=== PATIENT | male | born 1960 | race African-American/Black ===

== ENCOUNTER 2024-06-06 05:32 | Inpatient (IN) | payer OTHER ==
[2024-06-06] MEDS: MIDAZOLAM 1 MG/ML 5 ML VIAL IV STA (05:37)
--- NOTE | 2024-06-06 05:40 | ED ---
CPR HPI - General Stated Complaint: Cardiac Arrest Time Seen by Provider: 06/06/24 05:38 Source: RN notes reviewed, old records reviewed Mode of arrival: EMS Limitations: altered mental status, physical limitation - History of Present Illness Initial Comments: This is a 64-year-old male who comes in after collapsing patient is found collapsed and brought to the emergency department patient had a witnessed cardiac arrest at [facility] Complaint: found unresponsive, stopped breathing, collapsed during activity, unknown, seizure - Related Data Home Medications Medication Instructions Recorded Confirmed Acetaminophen [Tylenol] 650 mg PO Q4H PRN MDD 2600 mg 06/06/24 06/06/24 Calcium Phos/D3/Magnesium/Zinc 1 tab PO TID PRN 06/06/24 06/06/24 [Czpwfqz-Ebi-Zvrv-Vitamin D3] Chlorpheniramine Maleate 4 mg PO Q4H PRN 06/06/24 06/06/24 [Chlor-Trimeton] Docusate [Colace] 100 mg PO DAILY PRN 06/06/24 06/06/24 Hyoscyamine Sulfate [Levsin] 0.125 mg PO QID PRN 06/06/24 06/06/24 Ibuprofen [Motrin Ib] 600 mg PO Q6H PRN 06/06/24 06/06/24 Loperamide [Imodium] 4 mg PO QID PRN MDD 16MG 06/06/24 06/06/24 Magnesium Hydroxide [Milk of 2,400 mg PO BID PRN 06/06/24 06/06/24 Magnesia] Multivitamins, Thera [Multivitamin 1 tab PO DAILY 06/06/24 06/06/24 (formulary)] Mylanta Regular Strength 30 ml PO Q4H PRN 06/06/24 06/06/24 Thiamine [Vitamin B-1] 100 mg PO DAILY 06/06/24 06/06/24 cloNIDine HCL [Catapres] 0.1 mg PO Q4H PRN 06/06/24 06/06/24 guaiFENesin SYRUP 100MG/5ML 200 mg PO Q4H PRN 06/06/24 06/06/24 [Robitussin] ondansetron HCL [Ondansetron HCl] 8 mg PO Q6H PRN 06/06/24 06/06/24 Allergies Allergy/AdvReac Type Severity Reaction Status Date / Time No Known Allergies Allergy Verified 06/06/24 13:38 Review of Systems ROS Statement: Those systems with pertinent positive or pertinent negative responses have been documented in the HPI. ROS Other: All systems not noted in ROS Statement are negative. General Exam Limitations: altered mental status, physical limitation General appearance: obtunded, in distress Head exam: Present: atraumatic, normocephalic, normal inspection Eye exam: Present: normal appearance, PERRL, EOMI. Absent: scleral icterus, conjunctival injection, periorbital swelling ENT exam: Present: normal exam, mucous membranes moist Neck exam: Present: normal inspection. Absent: tenderness, meningismus, lymphadenopathy Respiratory exam: Present: normal lung sounds bilaterally. Absent: respiratory distress, wheezes, rales, rhonchi, stridor Cardiovascular Exam: Present: regular rate, normal rhythm, normal heart sounds. Absent: systolic murmur, diastolic murmur, rubs, gallop, clicks GI/Abdominal exam: Present: soft, normal bowel sounds. Absent: distended, tenderness, guarding, rebound, rigid Extremities exam: Present: normal inspection, full ROM, normal capillary refill. Absent: tenderness, pedal edema, joint swelling, calf tenderness Back exam: Present: normal inspection Neurological exam: Present: alert, oriented X3, CN II-XII intact Psychiatric exam: Present: normal affect, normal mood Skin exam: Present: warm, dry, intact, normal color. 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 Operator ] Respiratory 19 16 19 Rate Blood Pressure 50/40 61/40 40/32 O2 Sat by Pulse 89 L 91 L 78 L Oximetry Fraction of Inspired Oxygen (FIO2) 06/06/24 06/06/24 06/06/24 06:00 06:05 06:15 Temperature 94.8 F L Pulse Rate 24 L 58 L 131 H Pulse Rate [ 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 Operator ] Respiratory 19 19 19 Rate Blood Pressure 30/20 145/98 129/69 O2 Sat by Pulse 99 100 Oximetry Fraction of Inspired Oxygen (FIO2) 06/06/24 06/06/24 06:25 06:27 Temperature 94.3 F L Pulse Rate 129 H Pulse Rate [ 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 sent in by a medical professional or institution ([facility], [employer], urgent care, hospital, or group home...) When possible be specific @ -no Did you speak to anyone other than the patient for history (EMS, parent, family, police, friend...)? What history was obtained from this source @ -no Did you review nursing and triage notes (agree or disagree)? Why? @ -agree Are old charts reviewed (outside hosp., previous admission, EMS record, old EKG, old radiological studies, urgent care reports/EKG's, group home records)? Report findings @ -yes Differential Diagnosis (chest pain, altered mental status, abdominal pain women, abdominal pain men, vaginal bleeding, weakness, fever, dyspnea, syncope, headache, dizziness, GI bleed, back pain, seizure, CVA, palpatations, mental health, musculoskeletal)? @ -prior EKG interpreted by me (3pts min.). @ -yes X-rays interpreted by me (1pt min.). @ -yes negative for acute disease CT interpreted by me (1pt min.). @ -no U/S interpreted by me (1pt. min.). @ -no What testing was considered but not performed or refused? (CT, X-rays, U/S, labs)? Why? @ -none What meds were considered but not given or refused? Why? @ -none Did you discuss the management of the patient with other professionals (professionals i.e. [facility] Rodriguez, ORE GRADER, lab, RT, psych nurse, psychotherapist social worker, route sales driver, teacher, juvenile corrections officer, casework manager)? Give summary @ -no Was smoking cessation discussed for >3mins.? @ -no Was critical care preformed (if so, how long)? @ -yes31 Were there social determinants of health that impacted care today? How? (Homelessness, low income, unemployed, alcoholism, drug addiction, transportation, low edu. Level, literacy, decrease access to med. care, snf, rehab)? @ -none Was there de-escalation of care discussed even if they declined (Discuss DNR or withdrawal of care, Hospice)? DNR status @ -no What co-morbidities impacted this encounter? (DM, HTN, Smoking, COPD, CAD, Cancer, CVA, ARF, Chemo, Hep., AIDS, mental health diagnosis, sleep apnea, morbid obesity)? @ -none Was patient admitted / discharged? Hospital course, mention meds given and route, prescriptions, significant lab abnormalities, going to OR and other per tinent info. @ - 64 male to ER with acute cardiac arrest. Cardiac arrest was related to ST elevated VT patient admitted for the ICU for continued supportive care and monitoring of any neurologic activity Admitted Undiagnosed new problem with uncertain prognosis? @ -no Drug Therapy requiring intensive monitoring for toxicity (Heparin, Nitro, Insulin, Cardizem)? @ -no Were any procedures done? @ -no Diagnosis/symptom? @ -STEMI with cardiac arrest Acute, or Chronic, or Acute on Chronic? @ -Acute Uncomplicated (without systemic symptoms) or Complicated (systemic symptoms)? @ -Complicated Side effects of treatment? @ -no Exacerbation, Progression, or Severe Exacerbation? @ -exacerbation Poses a threat to life or bodily function? How? (Chest pain, USA, VT, pneumonia, PE, COPD, DKA, ARF, appy, cholecystitis, CVA, Diverticulitis, Homicidal, Suicidal, threat to staff... and all critical care pts) @ -yes - Consultations Consultation #1: Spoke with ICU regarding ICU admission and they agree Consultation #2: Spoke with sound regarding admission and they agree Consultation #3: Spoke with cardiology regarding STEMI, they will see patient in the emergency department Procedures - Central Line Placement Right IJ Consent Obtained: verbal consent Patient Placed on Monitor/Pulse Ox: Yes MD Prep: mask, gown, gloves Central Line Prep: Chlorhexidine scrub, sterile drapes applied Local Anesthesia Used: Lidocaine 1% Ultrasound Used for Placement: Yes Central Line Lumen Inserted: triple Central Line Position: good blood return, all ports aspirated, flushed, capped, sutured in place with 2-0 silk Dressing Applied: Tegaderm Post Procedure X-Ray: tip of catheter in good position Patient Tolerated Procedure: well Complications: none - Intubation Laryngoscope: Pham Size: 4 ET Tube Size: 7.5 ET Tube Uncuffed: No Tube Secured Location: teeth Tube Placement Confirmation: visualized tube passing through cords, equal breath sounds bilaterally Patient Tolerated Procedure: well Intubation Complications: none Medical Decision Making - Medical Decision Making 64 male to ER with acute cardiac arrest. Cardiac arrest was related to ST elevated [place] patient admitted for the ICU for continued supportive care and monitoring of any neurologic activity - Lab Data Result diagrams: 06/11/24 04:36 06/11/24 17:11 Lab Results 06/06/24 06/06/24 06/06/24 Range/Units 05:41 05:41 05:41 WBC 13.5 H (3.8-10.6) k/uL RBC 5.39 (4.30-5.90) m/uL Hgb 17.1 (13.0-17.5) gm/dL Hct 54.5 H (39.0-53.0) % MCV 101.2 H (80.0-100.0) fL MCH 31.8 (25.0-35.0) pg MCHC 31.4 (31.0-37.0) g/dL RDW 12.5 (11.5-15.5) % Plt Count 315 (150-450) k/uL MPV 7.8 Neutrophils % 80 % Lymphocytes % 14 % Monocytes % 4 % Eosinophils % 1 % Basophils % 0 % Neutrophils # 10.9 H (1.3-7.7) k/uL Lymphocytes # 1.8 (1.0-4.8) k/uL Monocytes # 0.6 (0-1.0) k/uL Eosinophils # 0.1 (0-0.7) k/uL Basophils # 0.1 (0-0.2) k/uL Hypochromasia Slight PT 13.1 H (10.0-12.5) sec INR 1.2 H (<1.2) APTT 28.3 (22.0-30.0) sec Sodium 143 (137-145) mmol/L Potassium 4.2 (3.5-5.1) mmol/L Chloride 101 (98-107) mmol/L Carbon Dioxide 14 L (22-30) mmol/L Anion Gap 28 mmol/L BUN 41 H (9-20) mg/dL Creatinine 3.67 H (0.66-1.25) mg/dL Est GFR (CKD-EPI)AfAm 19 (>60 ml/min/1.73 sqM) Est GFR (CKD-EPI)NonAf 16 (>60 ml/min/1.73 sqM) Glucose 163 H (74-99) mg/dL Plasma Lactic Acid Freedom (0.7-2.0) mmol/L Calcium 10.5 H (8.4-10.2) mg/dL Phosphorus 14.4 H* (2.5-4.5) mg/dL Magnesium 3.4 H (1.6-2.3) mg/dL Total Bilirubin 1.2 (0.2-1.3) mg/dL AST 499 H (17-59) U/L ALT 171 H (4-49) U/L Alkaline Phosphatase 61 (38-126) U/L Troponin I (0.000-0.034) ng/mL NT-Pro-B Natriuret Pep 82856 pg/mL Total Protein 8.9 H (6.3-8.2) g/dL Albumin 4.5 (3.5-5.0) g/dL TSH 9.220 H (0.465-4.680) mIU/L 06/06/24 06/06/24 Range/Units 05:41 05:41 WBC (3.8-10.6) k/uL RBC (4.30-5.90) m/uL Hgb (13.0-17.5) gm/dL Hct (39.0-53.0) % MCV (80.0-100.0) fL MCH (25.0-35.0) pg MCHC (31.0-37.0) g/dL RDW (11.5-15.5) % Plt Count (150-450) k/uL MPV Neutrophils % % Lymphocytes % % Monocytes % % Eosinophils % % Basophils % % Neutrophils # (1.3-7.7) k/uL Lymphocytes # (1.0-4.8) k/uL Monocytes # (0-1.0) k/uL Eosinophils # (0-0.7) k/uL Basophils # (0-0.2) k/uL Hypochromasia PT (10.0-12.5) sec INR (<1.2) APTT (22.0-30.0) sec Sodium (137-145) mmol/L Potassium (3.5-5.1) mmol/L Chloride (98-107) mmol/L Carbon Dioxide (22-30) mmol/L Anion Gap mmol/L BUN (9-20) mg/dL Creatinine (0.66-1.25) mg/dL Est GFR (CKD-EPI)AfAm (>60 ml/min/1.73 sqM) Est GFR (CKD-EPI)NonAf (>60 ml/min/1.73 sqM) Glucose (74-99) mg/dL Plasma Lactic Acid Freedom 11.4 H* (0.7-2.0) mmol/L Calcium (8.4-10.2) mg/dL Phosphorus (2.5-4.5) mg/dL Magnesium (1.6-2.3) mg/dL Total Bilirubin (0.2-1.3) mg/dL AST (17-59) U/L ALT (4-49) U/L Alkaline Phosphatase (38-126) U/L Troponin I 0.191 H* (0.000-0.034) ng/mL NT-Pro-B Natriuret Pep pg/mL Total Protein (6.3-8.2) g/dL Albumin (3.5-5.0) g/dL TSH (0.465-4.680) mIU/L - EKG Data -: EKG Interpreted by Me (EKG is ST elevated VT) - Radiology Data Radiology results: report reviewed (Chest x-ray is negative for acute disease), image reviewed Critical Care Time Critical Care Time: Yes Total Critical Care Time: 31 Disposition Clinical Impression: Cardiac arrest, Acute respiratory failure, STEMI (ST elevation myocardial infarction), Sudden cardiac Disposition: ADMITTED IP TO THIS [facility] Condition: Critical Is patient prescribed a controlled substance at d/c from ED?: No Time of Disposition: 07:00
[2024-06-06] MEDS: SODIUM CHLORIDE 0.9% 1,000 ML IV STA ×3 (05:43→06:11)
[2024-06-06] MEDS: SODIUM CHLORIDE 0.9% 500 ML 500 ML IV STA (05:43)
[2024-06-06] MEDS ORDERED: NALOXONE 0.4 MG/ML 1 ML VIAL IV PRN (05:48)
[2024-06-06] MEDS: DEXTROSE 5% IN WATER 100 ML with AMIODARONE 150 MG IV ONE (05:50)
[2024-06-06] MEDS: SODIUM BICARB 8.4% 50 ML SYR (1 MEQ/ML) IV STA ×2 (05:54→08:25)
[2024-06-06] MEDS: ATROPINE SULFATE 0.1 MG/ML 10ML SYRINGE IV STA (05:54)
[2024-06-06] MEDS: ATROPINE SULFATE 0.4 MG/ML 20 ML VIAL IV STA (06:00)
[2024-06-06 06:02] LABS: INR 1.2 (<1.2); Partial Thromboplastin Time 28.3 sec (22.0-30.0); Prothrombin Time 13.1 sec (10.0-12.5)
[2024-06-06] MEDS: NOREPINEPHRINE 4 MG in SODIUM CHLORIDE 0.9% 250 ML IV ONE (06:04)
[2024-06-06 06:09] LABS: African American GFR (CKD) 19 (>60 ml/min/1.73 sqM); Albumin 4.5 g/dL (3.5-5.0); Alkaline Phosphatase 61 U/L (38-126); Blood Urea Nitrogen 41 mg/dL (9-20); Calcium 10.5 mg/dL (8.4-10.2); Carbon Dioxide 14 mmol/L (22-30); Glucose 163 mg/dL (74-99); Non-African American GFR(CKD) 16 (>60 ml/min/1.73 sqM); Total Bilirubin 1.2 mg/dL (0.2-1.3); Total Protein 8.9 g/dL (6.3-8.2)
[2024-06-06 06:10] LABS: Basophils # (A) 0.1 k/uL (0-0.2); Basophils % (A) 0 %; Eosinophils # (A) 0.1 k/uL (0-0.7); Eosinophils % (A) 1 %; HCT 54.5 % (39.0-53.0); HGB 17.1 gm/dL (13.0-17.5); Hypochromasia Slight; Lymphocytes # (A) 1.8 k/uL (1.0-4.8); Lymphocytes % (A) 14 %; MCH 31.8 pg (25.0-35.0); MCHC 31.4 g/dL (31.0-37.0); MCV 101.2 fL (80.0-100.0); Mean Platelet Volume 7.8; Monocytes # (A) 0.6 k/uL (0-1.0); Monocytes % (A) 4 %; Neutrophils # (A) 10.9 k/uL (1.3-7.7); Neutrophils % (A) 80 %; Platelet Count 315 k/uL (150-450); RBC 5.39 m/uL (4.30-5.90); RDW 12.5 % (11.5-15.5); WBC 13.5 k/uL (3.8-10.6)
[2024-06-06] MEDS: HEPARIN SODIUM 1,000 UN/ML (10ML VL) IVP STA (06:12)
[2024-06-06] MEDS: ASPIRIN 300 MG SUPP RECTAL STA (06:16)
[2024-06-06 06:18] LABS: NT-Pro-B-Type Natriuretic Pept 18300 pg/mL
[2024-06-06 06:25] LABS: AST 499 U/L (17-59); Anion Gap 28 mmol/L; Chloride 101 mmol/L (98-107); Magnesium 3.4 mg/dL (1.6-2.3); Potassium 4.2 mmol/L (3.5-5.1); Sodium 143 mmol/L (137-145)
--- NOTE | 2024-06-06 06:25 | XR ---
EXAM: XR Chest, 1 View CLINICAL HISTORY: ITS.REASON XR Reason: ET TECHNIQUE: Frontal view of the chest. COMPARISON: No relevant prior studies available. FINDINGS: Lungs: Unremarkable. No consolidation. Pleural space: Unremarkable. No pneumothorax. Heart: Unremarkable. No cardiomegaly. Mediastinum: Unremarkable. Normal mediastinal contour. Bones/joints: Unremarkable. No acute fracture. Tubes, lines and devices: Right-sided central venous catheter is in place with the tip overlying the expected location of the proximal graft enteric tube is in place with the side-port traversing below the level of the diaphragm. IMPRESSION: No acute findings in the chest.
[2024-06-06 06:29] LABS: ABG Base Excess -16.2 mmol/L; ABG HCO3 14 mmol/L (21-25); ABG Oxygen Saturation 99.3 % (94-97); ABG PCO2 50 mmHg (35-45); ABG TCO2 16 mmol/L (19-24); Allen Test Performed? Yes
[2024-06-06 06:29] LABS: ALT 171 U/L (4-49); Phosphorus 14.4 mg/dL (2.5-4.5)
[2024-06-06] MEDS ORDERED: LIDOCAINE 1% INJ 10MG/ML (20 ML MDV) ONE (06:34)
[2024-06-06] MEDS ORDERED: VERAPAMIL 2.5 MG/ML 2 ML AMP ONE (06:34)
[2024-06-06] MEDS: IV FLUID CONTINUATION 1,000 ML IV ONE (06:39)
[2024-06-06] MEDS ORDERED: HEPARIN SODIUM 1,000 UN/ML (10ML VL) ONE (06:48)
[2024-06-06] MEDS: LIDOCAINE 1% INJ 10MG/ML (20 ML MDV) SQ ONE (06:54)
[2024-06-06] MEDS: IOPAMIDOL-370 100ML BTL INJ ONE (07:00)
[2024-06-06] MEDS: SODIUM CHLORIDE 0.9% 1,000 ML IV ONE (07:17)
[2024-06-06] MEDS ORDERED: RX INFO: IV CONTRAST WAS GIVEN 1 EACH MISC MISCELLANE PRN (07:21)
--- NOTE | 2024-06-06 07:28 | P.CRDCN ---
History of Present Illness Consult date: 06/06/24 History of present illness: HISTORY OF PRESENTING ILLNESS 64-year-old male was been treated for multiple drug abuses in [facility] presented to the [facility] for being found unresponsive. He was intubated in the field. He had ust-iw-[id number] cardiac arrest the details of which are not available for me to review. Unknown downtime. In ER he was noticed to be bradycardic with his ECG showing marked ST elevations in lead aVR and V1 In the ER he was reintubated. His initial labs showed sodium 143, potassium 4.2, bicarb 14, BUN 41 creatinine 3.6, significantly elevated lactate of 11.4, phosphorous 14.4, troponin 0.19, NT proBNP 18,000 His chest x-ray did not show any signs of pulmonary congestion. He has a right IJ central line and NG-tube in place. Because of his presentation of cardiac arrest with ECG changes STEMI was activated. REVIEW OF SYSTEMS 14 point review of system is negative except what is mentioned above in HPI. PHYSICAL EXAMINATION Vital signs reviewed. On propofol and norepinephrine Head: Normocephalic. Eyes: Sclerae nonicteric. Neck: Brisk carotid upstroke Lungs: ET tube in place, on vent support Heart: Regular rate and rhythm, S1-S2, no S3, no murmur or rub. Abdomen: Soft nontender, positive bowel sounds. Extremities: No edema, intact distal pulses. Neuro: Under sedation. ASSESSMENT Anterior STEMI Tzx-ul-oydwkxca cardiac arrest Acute hypoxic respiratory failure requiring vent support JAYASHREE Metabolic encephalopathy Lactic acidosis Polysubstance abuse PLAN Plan for cardiac authorization Further recommendations to follow Jacques Romero MD, FACC, RPVI Thank you for allowing [facility] to participate in this patient's care. Feel free to reach out in case of any followup questions. Past Medical History Past Medical History: Unable to Obtain History of Any Multi-Drug Resistant Organisms: Unobtainable Past Surgical History: Unable to Obtain Past Psychological History: Unable to Obtain Smoking Status: Unknown if ever smoked Past Alcohol Use History: Unable to Obtain Past Drug Use History: Opiates Medications and Allergies Allergies Allergy/AdvReac Type Severity Reaction Status Date / Time Unable to Assess Allergy Verified 06/06/24 05:41 Physical Exam Vitals: Vital Signs Temp Pulse Resp BP Pulse Ox FiO2 06/06/24 06:30 94.8 F L 129 H 19 126/77 100 06/06/24 06:27 100 06/06/24 06:25 94.3 F L 129 H 19 116/71 100 06/06/24 06:15 94.8 F L 131 H 19 129/69 100 06/06/24 06:00 24 L 19 30/20 06/06/24 05:55 145 H 19 40/32 78 L 06/06/24 05:47 79 16 61/40 91 L 06/06/24 05:43 100 06/06/24 05:40 89 19 50/40 89 L 06/06/24 05:35 100 06/06/24 05:34 96.8 F L 119 H 16 61/38 Intake and Output 06/05/24 06/06/24 06/06/24 22:59 06:59 14:59 Intake Total 300 200 Balance 300 200 Intake: IV 300 200 Other: Weight 65.771 kg Results 06/06/24 05:41 06/06/24 05:41 Cardiac Enzymes 06/06/24 06/06/24 Range/Units 05:41 05:41 AST 499 H (17-59) U/L Troponin I 0.191 H* (0.000-0.034) ng/mL Coagulation 06/06/24 Range/Units 05:41 PT 13.1 H (10.0-12.5) sec APTT 28.3 (22.0-30.0) sec CBC 06/06/24 Range/Units 05:41 WBC 13.5 H (3.8-10.6) k/uL RBC 5.39 (4.30-5.90) m/uL Hgb 17.1 (13.0-17.5) gm/dL Hct 54.5 H (39.0-53.0) % Plt Count 315 (150-450) k/uL Comprehensive Metabolic Panel 06/06/24 Range/Units 05:41 Sodium 143 (137-145) mmol/L Potassium 4.2 (3.5-5.1) mmol/L Chloride 101 (98-107) mmol/L Carbon Dioxide 14 L (22-30) mmol/L BUN 41 H (9-20) mg/dL Creatinine 3.67 H (0.66-1.25) mg/dL Glucose 163 H (74-99) mg/dL Calcium 10.5 H (8.4-10.2) mg/dL AST 499 H (17-59) U/L ALT 171 H (4-49) U/L Alkaline Phosphatase 61 (38-126) U/L Total Protein 8.9 H (6.3-8.2) g/dL Albumin 4.5 (3.5-5.0) g/dL Current Medications Generic Name Dose Route Start Last Admin Trade Name Freq PRN Reason Stop Dose Admin Albuterol/Ipratropium 3 ml 06/06/24 08:00 Ipratropium-Albuterol 3 Ml Neb INHALATION RT-QID BEV Sodium Chloride 1,000 mls @ 130 mls/hr 06/06/24 05:38 06/06/24 05:44 Saline 0.9% IV 06/06/24 13:19 130 mls/hr .Q7H42M STA Administration Midazolam HCl 50 mg/ Sodium 50 mls @ 1 mls/hr 06/06/24 06:30 Chloride IV .Q24H BEV Protocol 1 MG/HR Norepinephrine Bitartrate 32 250 mls @ 0.925 mls/hr 06/06/24 07:00 mg/ Sodium Chloride IV .Q24H BEV Protocol 0.03 MCG/KG/MIN Sodium Chloride 1,000 mls @ 150 mls/hr 06/06/24 07:30 Saline 0.9% IV 06/06/24 13:29 .Q6H40M [facility] Miscellaneous Information 1 each 06/06/24 07:21 Rx Info: Iv Contrast Was Given 1 Each Misc MISCELLANE 06/08/24 07:21 DAILY PRN Per Protocol Naloxone HCl 0.2 mg 06/06/24 05:48 Naloxone 0.4 Mg/Ml 1 Ml Vial IV Q2M PRN Opioid Reversal Pantoprazole Sodium 40 mg 06/06/24 09:00 Pantoprazole 40 Mg/10 Ml Vial IV DAILY BEV Intake and Output 06/05/24 06/06/24 06/06/24 22:59 06:59 14:59 Intake Total 300 200 Balance 300 200 Intake: IV 300 200 Other: Weight 65.771 kg 06/06/24 05:41 06/06/24 05:41
--- NOTE | 2024-06-06 07:31 | P.CARDCATH ---
Date of Procedure: 06/06/24 Description of Procedure: DIAGNOSTIC CORONARY ANGIOGRAPHY and LEFT HEART CATH REPORT PROCEDURES PERFORMED: Left heart catheterization Selective coronary angiography Moderate conscious sedation 14 mins Right common femoral access Right common femoral arteriogram Angioseal Closure INDICATION: STEMI with ST elevations in lead aVR and V1 Vop-zz-wgtjiggy cardiac arrest CONSENT: I have discussed the risks, benefits and alternative therapies for the above-mentioned procedure, sedation/analgesia and necessary blood product administration (if indicated, as they pertain to this patient). The patient has indicated understanding and acceptance of the risks and procedures discussed. Conscious Sedation: Patient's ECG, heart rate, blood pressure, pulse oximetry was monitored throughout the duration of procedure under the direct supervision. Patient was on propofol which was used for moderate conscious sedation. Total duration of 14 minutes. PROCEDURE:After the risks, benefits and alternatives of the above mentioned procedure explained in detail with the patient, informed consent was obtained. Patient was taken to the catheterization lab and prepped and draped in usual sterile fashion. Ultrasound was used to identify the right common femoral artery. 1% lidocaine was infiltrated over the right common femoral artery. Using ultrasound arterial access was obtained using micropuncture needle. A 6-Bengali sheath was placed in the right coomon femoral artery using modified Seldinger technique. J tipped wire was advanced under fluoroscopic guidance. Over the wire JL4 diagnostic catheter was advanced. Wire was removed, catheter was flushed and manipulated under fluoroscopy to selectively engaged the left coronary ostium. Left coronary angioplasty was performed in different angiographic projections. This catheter was exchanged for a JR4 diagnostic catheter over the wire. The catheter was flushed and manipulated to cross the aortic valve. LV pressures were obtained. Pullback was performed across aortic valve and catheter was manipulated to selectively engage the right coronary ostium under fluoroscopic guidance. Right coronary angiography was performed in different angiographic projections. Catheter was removed over the wire. Femoral sheath was flushed. Angioseal closure device was used to close the arteriotomy site. Angio-Seal was not deployed probably because of thin body habitus. 20 minutes of manual pressure was held on the right femoral arteriotomy site. Appropriate patent hemostasis was achieved. The patient tolerated the procedure well. Patient was transported back to the post catheterization holding area in stable condition. Angiographic images were reviewed in detail. HEMODYNAMICS: Aortic Pressure: 85/60 mmHg. LV pressure: 90/65 mmHg. LVEDP 3 mmHg. SELECTIVE CORONARY ARTERIOGRAPHY: LEFT MAIN: The left main is a large caliber vessel which bifurcates into the LAD and circumflex. Left main appears angiographically patent. LEFT ANTERIOR DESCENDING CORONARY ARTERY: LAD is a large caliber vessel which wraps around to the apex. It appears angiographically patent. It gives rise to a large diagonal 1 branch and a small diagonal 2 branch which are angiographically patent. LEFT CIRCUMFLEX CORONARY ARTERY: It is nondominant vessel. Left circumflex is a moderate caliber vessel. It appears angiographically patent. RIGHT CORONARY ARTERY: Dominant vessel. The right coronary artery is a large caliber vessel which gives PDA and PLV branch. It appears angiographically patent. IMPRESSION: Angiographically patent coronary arteries as described above. Tortuous coronary arteries Low left sided filling pressures PLAN: 150 cc fluids for 6 hours Admit to ICU for further management Because of ST elevations in aVR and V1 and low LVEDP, there is suspicion of possible PE Will obtain a ventilation/perfusion scan of the lungs to rule out any pulmonary embolism. Cannot perform CT angio because of exposure of 40 cc contrast during cardiac catheterization and already low GFR. Performing Physician Jacques Romero MD FACC, RPVI Thank you for allowing [facility] to participate in this patient's care. Feel free to reach out in case of any followup questions.
[2024-06-06 07:34] LABS: ABG PH 7.06 (7.35-7.45)
[2024-06-06 07:35] LABS: ABG PO2 >420 mmHg (83-108)
[2024-06-06 07:55] LABS: Glucose,Whole Blood 61 mg/dL (70-110)
[2024-06-06] MEDS: DEXTROSE 50% SYRINGE 50 ML IVP ONE (07:57)
[2024-06-06 08:11] LABS: Glucose,Whole Blood 94 mg/dL (70-110)
[2024-06-06] MEDS: SODIUM CHLORIDE 0.9% 1,000 ML IV SCH (08:14)
[2024-06-06] MEDS: MIDAZOLAM HCL 50 MG in SODIUM CHLORIDE 0.9% 40 ML IV SCH (08:26)
[2024-06-06] MEDS: IPRATROPIUM-ALBUTEROL 3 ML NEB INHALATION STA (08:28)
[2024-06-06] MEDS: IPRATROPIUM-ALBUTEROL 3 ML NEB INHALATION SCH (08:37)
--- NOTE | 2024-06-06 08:49 | P.HPIM ---
History of Present Illness H&P Date: 06/06/24 Patient is a 64-year-old male with history of polysubstance abuse including heroin, cocaine, alcohol presenting from [place] for witnessed cardiac arrest. Unknown downtime. Per report, patient possibly had seizure-like activity after having a cardiac arrest. He had multiple rounds of CPR, was intubated in the field. After getting to the hospital, he was found to be bradycardic, given atropine. EKG concerning for anterior STEMI with ST elevations in aVR and V1. Cardiology was consulted and patient taken directly to [facility]. Coronary arteries are patent. Patient now in the ICU. Initially patient blood pressure was 61/38, mechanically ventilated, respiratory 16, pulse 119, temperature 96.8. WBC 13.5, pH 7. 06, pCO2 50, sodium 143, potassium 4.2, bicarb 14, anion gap 28, creatinine 3.67, lactate 11.4, glucose 163, calcium 10.5, alk phos 14.4, AST 499, ALT 171, troponin 0.191, proBNP 18,000, TSH 9.22. Chest x-ray independently interpreted, did not show any opacities, ET tube, central line, NG tube in place. ICU, nephrology, neurology consulted. Pertinent positives and negatives as discussed in HPI, a complete review of systems was performed and all other systems are negative. Patient seen and examined at bedside. Vital signs reviewed General: Intubated and sedated Derm: warm, dry Head: atraumatic, normocephalic, symmetric Eyes: anicteric sclera, pupils equal round reactive to light, pinpoint pupils ENT: Nose and ears atraumatic Neck: No thyromegaly, supple Mouth: no lip lesion, mucus membranes moist Cardiovascular: S1S2 reg, tachycardic, no murmur, no edema Lungs: Bilateral rhonchi, mechanically ventilated Abdominal: soft, nondistended Ext: no gross muscle atrophy, no contractures Neuro: Sedated Psych: Unable to assess Assessment/Plan: Active: [id number] cardiac arrest Acute anterior STEMI Unspecified shock, cardiogenic versus obstructive Possible acute pulmonary embolism Acute metabolic encephalopathy History of polysubstance abuse Seizure? Leukocytosis, reactive High anion gap metabolic acidosis Uremia Anuric, acute kidney injury Lactic acidosis Euthyroid sick syndrome -Discussed with cardiology, possible PE, consider anticoagulation 4 hours after cardiac cath, consider getting VQ scan if patient is stable -Echo pending -Continue normal saline at 150 cc an hour post cath -Given another 2 g of bicarb -Nephrology also consulted -Neurology consulted -EEG ordered -Repeat lactate-Labs later this afternoon -Continue Levophed -ICU consulted The patient is admitted with an anticipated greater than 2 midnight stay as inpatient status for evaluation of cardiac arrest. Surrogate decision-maker: Mother CODE STATUS: Full code Anticipated discharge date: Pending clinical course Anticipated discharge place: Pending clinical course A total of 65 minutes was spent on the care of this complex patient more than 50% of the time was spent in counseling and care coordination. Past Medical History Past Medical History: Unable to Obtain History of Any Multi-Drug Resistant Organisms: Unobtainable Past Surgical History: Unable to Obtain Past Psychological History: Unable to Obtain Smoking Status: Unknown if ever smoked Past Alcohol Use History: Unable to Obtain Past Drug Use History: Opiates Medications and Allergies Allergies Allergy/AdvReac Type Severity Reaction Status Date / Time Unable to Assess Allergy Verified 06/06/24 05:41 Physical Exam Vitals: Vital Signs Temp Pulse Pulse Resp BP Pulse Ox FiO2 06/06/24 08:38 50 06/06/24 08:37 104 H 06/06/24 08:27 50 06/06/24 06:30 94.8 F L 129 H 19 126/77 100 60 06/06/24 06:27 100 06/06/24 06:25 94.3 F L 129 H 19 116/71 100 06/06/24 06:15 94.8 F L 131 H 19 129/69 100 06/06/24 06:05 58 L 19 145/98 99 06/06/24 06:00 24 L 19 30/20 06/06/24 05:55 145 H 19 40/32 78 L 06/06/24 05:47 79 16 61/40 91 L 06/06/24 05:40 89 19 50/40 89 L 06/06/24 05:35 100 06/06/24 05:34 96.8 F L 119 H 16 61/38 06/06/24 05:32 79 Intake and Output 06/05/24 06/06/24 06/06/24 22:59 06:59 14:59 Intake Total 300 200 Balance 300 200 Intake: IV 300 200 Other: Weight 65.771 kg Results CBC & Chem 7: 06/06/24 05:41 06/06/24 05:41 Labs: Abnormal Lab Results - Last 24 Hours (Table) 06/06/24 06/06/24 06/06/24 Range/Units 05:41 05:41 05:41 WBC 13.5 H (3.8-10.6) k/uL Hct 54.5 H (39.0-53.0) % MCV 101.2 H (80.0-100.0) fL Neutrophils # 10.9 H (1.3-7.7) k/uL PT 13.1 H (10.0-12.5) sec INR 1.2 H (<1.2) ABG pH (7.35-7.45) ABG pCO2 (35-45) mmHg ABG pO2 (83-108) mmHg ABG HCO3 (21-25) mmol/L ABG Total CO2 (19-24) mmol/L ABG O2 Saturation (94-97) % Carbon Dioxide 14 L (22-30) mmol/L BUN 41 H (9-20) mg/dL Creatinine 3.67 H (0.66-1.25) mg/dL Glucose 163 H (74-99) mg/dL POC Glucose (mg/dL) (70-110) mg/dL Plasma Lactic Acid Freedom (0.7-2.0) mmol/L Calcium 10.5 H (8.4-10.2) mg/dL Phosphorus 14.4 H* (2.5-4.5) mg/dL Magnesium 3.4 H (1.6-2.3) mg/dL AST 499 H (17-59) U/L ALT 171 H (4-49) U/L Troponin I (0.000-0.034) ng/mL Total Protein 8.9 H (6.3-8.2) g/dL TSH 9.220 H (0.465-4.680) mIU/L 06/06/24 06/06/24 06/06/24 Range/Units 05:41 05:41 06:25 WBC (3.8-10.6) k/uL Hct (39.0-53.0) % MCV (80.0-100.0) fL Neutrophils # (1.3-7.7) k/uL PT (10.0-12.5) sec INR (<1.2) ABG pH 7.06 L* (7.35-7.45) ABG pCO2 50 H (35-45) mmHg ABG pO2 >420 H (83-108) mmHg ABG HCO3 14 L (21-25) mmol/L ABG Total CO2 16 L (19-24) mmol/L ABG O2 Saturation 99.3 H (94-97) % Carbon Dioxide (22-30) mmol/L BUN (9-20) mg/dL Creatinine (0.66-1.25) mg/dL Glucose (74-99) mg/dL POC Glucose (mg/dL) (70-110) mg/dL Plasma Lactic Acid Freedom 11.4 H* (0.7-2.0) mmol/L Calcium (8.4-10.2) mg/dL Phosphorus (2.5-4.5) mg/dL Magnesium (1.6-2.3) mg/dL AST (17-59) U/L ALT (4-49) U/L Troponin I 0.191 H* (0.000-0.034) ng/mL Total Protein (6.3-8.2) g/dL TSH (0.465-4.680) mIU/L 06/06/24 Range/Units 07:53 WBC (3.8-10.6) k/uL Hct (39.0-53.0) % MCV (80.0-100.0) fL Neutrophils # (1.3-7.7) k/uL PT (10.0-12.5) sec INR (<1.2) ABG pH (7.35-7.45) ABG pCO2 (35-45) mmHg ABG pO2 (83-108) mmHg ABG HCO3 (21-25) mmol/L ABG Total CO2 (19-24) mmol/L ABG O2 Saturation (94-97) % Carbon Dioxide (22-30) mmol/L BUN (9-20) mg/dL Creatinine (0.66-1.25) mg/dL Glucose (74-99) mg/dL POC Glucose (mg/dL) 61 L (70-110) mg/dL Plasma Lactic Acid Freedom (0.7-2.0) mmol/L Calcium (8.4-10.2) mg/dL Phosphorus (2.5-4.5) mg/dL Magnesium (1.6-2.3) mg/dL AST (17-59) U/L ALT (4-49) U/L Troponin I (0.000-0.034) ng/mL Total Protein (6.3-8.2) g/dL TSH (0.465-4.680) mIU/L
[2024-06-06] MEDS: NOREPINEPHRINE 4 MG in SODIUM CHLORIDE 0.9% 250 ML IV SCH (09:04)
--- NOTE | 2024-06-06 09:13 | XR ---
EXAMINATION TYPE: XR chest 1V portable DATE OF EXAM: 06/06/2024 8:47 AM CLINICAL INDICATION: Male, 64 years old with history of line placement/et tube placement; [facility] COMPARISON: Chest radiographs from 06/06/2024 TECHNIQUE: XR chest 1V portable Frontal view of the chest. FINDINGS: Lungs/Pleura: There is no evidence of pleural effusion, focal consolidation, or pneumothorax. Pulmonary vascularity: Unremarkable. Heart/mediastinum: Cardiomediastinal silhouette is unremarkable. Musculoskeletal: No acute osseous pathology. Other findings: None Lines/Tubes: Endotracheal tube with distal tip 5.0 cm above the tahir. Nasogastric tube with its distal tip and side-port projecting under the diaphragm. IMPRESSION: 1. New right pneumothorax. 2. Endotracheal tube and nasogastric tubes in appropriate position. Findings communicated to Dr. Love doctor for MD Demetria Cruz on 06/06/2024 9:[address] Remy Robb.
--- NOTE | 2024-06-06 10:22 | XR ---
EXAMINATION TYPE: XR chest 1V portable DATE OF EXAM: 06/06/2024 10:16 AM CLINICAL INDICATION: Male, 64 years old with history of eval. pneumothorax; [facility] COMPARISON: Same nava TECHNIQUE: XR chest 1V portable Frontal view of the chest. FINDINGS: EXAMINATION TYPE: XR chest 1V portable DATE OF EXAM: 06/06/2024 10:16 AM CLINICAL INDICATION: Male, 64 years old with history of eval. pneumothorax; [facility] COMPARISON: Chest radiographs from same dayr TECHNIQUE: XR chest 1V portable Frontal view of the chest. FINDINGS: Lungs/Pleura: There is no evidence of pleural effusion, focal consolidation, or pneumothorax. Pulmonary vascularity: Unremarkable. Heart/mediastinum: Cardiomediastinal silhouette is unremarkable. Musculoskeletal: No acute osseous pathology. Other findings: None Lines/Tubes: Endotracheal tube with distal tip 5.3a cm above the tahir. Nasogastric tube with its distal tip and side-port projecting under the diaphragm. Right internal jugular central venous catheter with distal tip at the cavoatrial junction. IMPRESSION: 1. Similar right pneumothorax. 2. Endotracheal tube and nasogastric tubes in appropriate position.
[2024-06-06 10:32] LABS: Appearance,Urine Turbid (Clear); Bacteria,Urine Few /hpf; Bilirubin,Urine Negative (Negative); Blood,Urine Large (Negative); Color,Urine Light Red; Glucose,Urine (UA) Negative (Negative); Ketones,Urine Negative (Negative); Leukocyte Esterase,Urine Negative (Negative); Mucus,Urine Few /hpf; Nitrite,Urine Negative (Negative); Protein,Urine 2+ (Negative); RBC,Urine 28 /hpf (0-5); Specific Gravity,Urine 1.026 (1.001-1.035); Squamous Epithelial Cell,Urine 8 /hpf (0-4); Urobilinogen,Urine <2.0 mg/dL (<2.0); WBC,Urine 71 /hpf (0-5)
--- NOTE | 2024-06-06 10:37 | XR ---
EXAMINATION TYPE: XR chest 1V portable DATE OF EXAM: 06/06/2024 10:30 AM CLINICAL INDICATION: Male, 64 years old with history of POST CHEST TUBE INSERTION; [facility] COMPARISON: Same day TECHNIQUE: XR chest 1V portable Frontal view of the chest. FINDINGS: Lungs/Pleura: Trace right pneumothorax. There is no evidence of pleural effusion, focal consolidation , or left pneumothorax. Pulmonary vascularity: Unremarkable. Heart/mediastinum: Cardiomediastinal silhouette is unremarkable. Musculoskeletal: No acute osseous pathology. Other findings: None Lines/Tubes: Endotracheal tube with distal tip 5.4cm above the tahir. Nasogastric tube with its distal tip and side-port projecting under the diaphragm. Right thoracotomy tube is present without evidence of pneumothorax. Right internal jugular central venous catheter with distal tip at the cavoatrial junction. IMPRESSION: Interval thoracotomy tube placement with reduction in right pneumothorax. Trace pneumothorax visualiz ed
[2024-06-06] MEDS: DEXTROSE 5% IN WATER 1,000 ML with SODIUM BICARB (1 MEQ/ML) 150 ML IV SCH (10:52)
[2024-06-06] MEDS: NOREPINEPHRINE 32 MG in SODIUM CHLORIDE 0.9% 218 ML IV SCH (10:53)
[2024-06-06 11:57] LABS: ABG Base Excess -0.9 mmol/L; ABG HCO3 24 mmol/L (21-25); ABG Oxygen Saturation 96.9 % (94-97); ABG PCO2 39 mmHg (35-45); ABG PH 7.39 (7.35-7.45); ABG PO2 95 mmHg (83-108); ABG TCO2 25 mmol/L (19-24); Allen Test Performed? Yes
[2024-06-06 12:07] LABS: Glucose,Whole Blood 107 mg/dL (70-110)
--- NOTE | 2024-06-06 12:09 | P.NPCON ---
History of Present Illness - Reason for Consult acute renal failure - History of Present Illness Patient is a 64-year-old male with history of polysubstance abuse who was leaving [facility], ? AMA and he apparently fell and developed mental status changes. It appears that patient became bradycardic and did have couple of rounds of CPR. EKG was suggestive of ST elevation WI and patient was taken to the [facility] this morning. Cardiac cath showed patent coronary arteries. Patient remains on the vent. He has not had any significant urine output. Currently with indwelling Griggs catheter. Urine output seems to be improving. Blood pressure was initially low with systolic in the 60s and 40s. Status post multiple fluid boluses. Blood pressure is now elevated. Patient did not require pressors. Lactic acid was 11.4 and it is down to 7.7 now. Serum creatinine was 3.67. No previous labs available for comparison. Review of Systems As per HPI Past Medical History Past Medical History: Unable to Obtain History of Any Multi-Drug Resistant Organisms: Unobtainable Past Surgical History: Unable to Obtain Past Psychological History: Unable to Obtain Smoking Status: Unknown if ever smoked Past Alcohol Use History: Unable to Obtain Past Drug Use History: Opiates Medications and Allergies Allergies Allergy/AdvReac Type Severity Reaction Status Date / Time Unable to Assess Allergy Verified 06/06/24 05:41 Physical Exam Vitals: Vital Signs Temp Pulse Pulse Resp BP Pulse Ox FiO2 06/06/24 11:49 104 H 06/06/24 11:30 105 H 25 H 100 06/06/24 11:00 104 H 29 H 168/103 100 50 06/06/24 10:30 101 H 38 H 158/109 99 06/06/24 10:00 106 H 36 H 142/93 96 50 06/06/24 09:30 108 H 36 H 139/93 96 06/06/24 09:00 106 H 36 H 139/85 92 L 50 06/06/24 08:53 106 H 06/06/24 08:38 50 06/06/24 08:37 104 H 06/06/24 08:30 101 H 39 H 124/82 94 L 06/06/24 08:27 50 06/06/24 08:00 95.5 F L 105 H 39 H 127/84 99 50 06/06/24 06:30 94.8 F L 129 H 19 126/77 100 60 06/06/24 06:27 100 06/06/24 06:25 94.3 F L 129 H 19 116/71 100 06/06/24 06:15 94.8 F L 131 H 19 129/69 100 06/06/24 06:05 58 L 19 145/98 99 06/06/24 06:00 24 L 19 30/20 06/06/24 05:55 145 H 19 40/32 78 L 06/06/24 05:47 79 16 61/40 91 L 06/06/24 05:40 89 19 50/40 89 L 06/06/24 05:35 100 06/06/24 05:34 96.8 F L 119 H 16 61/38 06/06/24 05:32 79 Intake and Output 06/05/24 06/06/24 06/06/24 22:59 06:59 14:59 Intake Total 300 880.724 Output Total 25 Balance 300 855.724 Intake: IV 300 775 Dextrose 5% in Water 1, 125 000 ml @ 125 mls/hr IV . Q9H12M [facility] with Sodium Bicarb (1 Meq/ml) 150 ml Rx#:[id number] Sodium Chloride 0.9% 1, 450 000 ml @ 150 mls/hr IV . Q6H40M [facility] Rx#:[id number] Intake, IV Titration 105.724 Amount Midazolam HCl 50 mg In 25.066 Sodium Chloride 0.9% 40 ml @ 1 MG/HR 1 mls/hr IV .Q24H [facility] Rx#:[id number] Norepinephrine 4 mg In 27.481 Sodium Chloride 0.9% 250 ml @ 0.03 MCG/KG/MIN 7. 518 mls/hr IV .Q24H ONE Rx#:[id number] propofoL 1,000 mg In 6.413 Empty Bag 1 bag @ 60 MCG/ KG/MIN 23.678 mls/hr IV . Q4H14M [facility] Rx#:[id number] propofoL 1,000 mg In 46.764 Empty Bag 1 bag @ Titrate IV .Q0M ONE Rx#: [id number] Output: Urine 25 Other: Weight 65.771 kg 62.8 kg ABP, PAP, CO, CI - Last 8 Hours Arterial Blood Pressure 177/94 Patient is sedated and on the vent. Examination of the heart S1 and S2 Examination of the lungs bilateral breath sounds are heard Abdomen is soft nontender Examination of lower extremities shows chronic skin changes no significant edema noted. [employer] exam cannot be performed Results - Lab Results Most recent lab results ABG pH 7.06 (7.35-7.45) L* 06/06/24 06:25 ABG pCO2 50 mmHg (35-45) H 06/06/24 06:25 ABG pO2 >420 mmHg (83-108) H 06/06/24 06:25 ABG HCO3 14 mmol/L (21-25) L 06/06/24 06:25 ABG O2 Saturation 99.3 % (94-97) H 06/06/24 06:25 Calcium 10.5 mg/dL (8.4-10.2) H 06/06/24 05:41 Phosphorus 14.4 mg/dL (2.5-4.5) H* 06/06/24 05:41 Magnesium 3.4 mg/dL (1.6-2.3) H 06/06/24 05:41 06/06/24 05:41 06/06/24 05:41 Assessment and Plan Assessment: 1. Acute kidney injury ATN, oliguric. Etiology is hypotension/cardiac arrest. 2. Microscopic hematuria noted on UA,? Traumatic. Consider underlying GN if it remains persistent. Patient has underlying history of hepatitis 3. History of polysubstance abuse including cocaine 4. Rule out cocaine associated acute WI 5. Status postcardiac arrest 6. Anion gap metabolic acidosis secondary to lactic acidosis and acute kidney injury 7. Hyperphosphatemia associated with acute kidney injury rule out rhabdomyolysis Plan: Check CK Repeat U/A in 1-2 days Check hepatitis profile Add IV bicarb Check drug screen. Repeat labs in a.m. Add beta-blockers if blood pressure remains elevated. Thank you for the consultation. We will continue to follow the patient with you during his hospitalization.
--- NOTE | 2024-06-06 12:22 | P.CNPUL ---
History of Present Illness Consult date: 06/06/24 Chief complaint: Cardiac arrest History of present illness: Patient is a 64-year-old male with history of polysubstance abuse including heroin, cocaine, alcohol presenting from [place] for witnessed cardiac arrest. Unknown downtime. Per report, patient possibly had seizure-like activity after having a cardiac arrest. He had multiple rounds of CPR, was intubated in the field. After getting to the hospital, he was found to be bradycardic, given atropine. EKG concerning for anterior STEMI with ST elevations in aVR and V1. Cardiology was consulted and patient taken directly to [facility]. Coronary arteries are patent. Patient now in the ICU. Initially patient blood pressure was 61/38, mechanically ventilated, respiratory 16, pulse 119, temperature 96.8. WBC 13.5, pH 7. 06, pCO2 50, sodium 143, potassium 4.2, bicarb 14, anion gap 28, creatinine 3.67, lactate 11.4, glucose 163, calcium 10.5, alk phos 14.4, AST 499, ALT 171, troponin 0.191, proBNP 18,000, TSH 9.22. Initial chest x-ray ET tube, central line, NG tube in place, no other abnormalities. Repeat chest x-ray with right-sided pneumothorax, confirmed on repeat. Patient is mechanically ventilated rate 18, tidal volume 400, oxygen 50%, PEEP 5.0. ABG pH 7.06, pCO2 50, pO2 450. IV line Levophed 0.03 mcg/kg/min, propofol 60 mcg/kg/min, Versed saline 1 mg/h, normal saline 150 mL/h. Patient also given bicarb. Given pneumothorax the decision was made for chest tube to be inserted. Also, A-line was established. Review of Systems ROS unobtainable: due to endotracheal tube, due to mental status Past Medical History Past Medical History: Unable to Obtain History of Any Multi-Drug Resistant Organisms: Unobtainable Past Surgical History: Unable to Obtain Past Psychological History: Unable to Obtain Smoking Status: Unknown if ever smoked Past Alcohol Use History: Unable to Obtain Past Drug Use History: Opiates Medications and Allergies Allergies Allergy/AdvReac Type Severity Reaction Status Date / Time Unable to Assess Allergy Verified 06/06/24 05:41 Physical Exam Vitals: Vital Signs Temp Pulse Pulse Resp BP Pulse Ox FiO2 06/06/24 10:30 101 H 38 H 158/109 99 06/06/24 10:00 106 H 36 H 142/93 96 50 06/06/24 09:30 108 H 36 H 139/93 96 06/06/24 09:00 106 H 36 H 139/85 92 L 50 06/06/24 08:53 106 H 06/06/24 08:38 50 06/06/24 08:37 104 H 06/06/24 08:30 101 H 39 H 124/82 94 L 06/06/24 08:27 50 06/06/24 08:00 95.5 F L 105 H 39 H 127/84 99 50 06/06/24 06:30 94.8 F L 129 H 19 126/77 100 60 06/06/24 06:27 100 06/06/24 06:25 94.3 F L 129 H 19 116/71 100 06/06/24 06:15 94.8 F L 131 H 19 129/69 100 06/06/24 06:05 58 L 19 145/98 99 06/06/24 06:00 24 L 19 30/20 06/06/24 05:55 145 H 19 40/32 78 L 06/06/24 05:47 79 16 61/40 91 L 06/06/24 05:40 89 19 50/40 89 L 06/06/24 05:35 100 06/06/24 05:34 96.8 F L 119 H 16 61/38 06/06/24 05:32 79 Intake and Output 06/05/24 06/06/24 06/06/24 22:59 06:59 14:59 Intake Total 300 880.724 Output Total 25 Balance 300 855.724 Intake: IV 300 775 Dextrose 5% in Water 1, 125 000 ml @ 125 mls/hr IV . Q9H12M [facility] with Sodium Bicarb (1 Meq/ml) 150 ml Rx#:[id number] Sodium Chloride 0.9% 1, 450 000 ml @ 150 mls/hr IV . Q6H40M [facility] Rx#:[id number] Intake, IV Titration 105.724 Amount Midazolam HCl 50 mg In 25.066 Sodium Chloride 0.9% 40 ml @ 1 MG/HR 1 mls/hr IV .Q24H [facility] Rx#:[id number] Norepinephrine 4 mg In 27.481 Sodium Chloride 0.9% 250 ml @ 0.03 MCG/KG/MIN 7. 518 mls/hr IV .Q24H ONE Rx#:[id number] propofoL 1,000 mg In 6.413 Empty Bag 1 bag @ 60 MCG/ KG/MIN 23.678 mls/hr IV . Q4H14M [facility] Rx#:[id number] propofoL 1,000 mg In 46.764 Empty Bag 1 bag @ Titrate IV .Q0M ONE Rx#: [id number] Output: Urine 25 Other: Weight 65.771 kg 62.8 kg GENERAL: The patient is sedated and intubated. On mechanical ventilation, limited exam and unable to fully assess. HEENT: Constricted pinpoint pupils nonreactive to light. . No conjunctival pallor. Normocephalic, atraumatic. No thyromegaly. CARDIOVASCULAR: S1 and S2 present. No murmurs, rubs, or gallops. PULMONARY: Chest is clear to auscultation, no wheezing or crackles. ABDOMEN: Soft, nondistended, normoactive bowel sounds. No palpable organomegaly. MUSCULOSKELETAL: No joint swelling or deformity. EXTREMITIES: No cyanosis, clubbing, or pedal edema. NEUROLOGICAL: Unable to assess. SKIN: Dermatitis on lower extremities. Results - Laboratory Findings CBC and BMP: 06/06/24 05:41 06/06/24 05:41 ABG ABG pH 7.06 (7.35-7.45) L* 06/06/24 06:25 ABG pCO2 50 mmHg (35-45) H 06/06/24 06:25 ABG pO2 >420 mmHg (83-108) H 06/06/24 06:25 ABG O2 Saturation 99.3 % (94-97) H 06/06/24 06:25 PT/INR, D-dimer PT 13.1 sec (10.0-12.5) H 06/06/24 05:41 INR 1.2 (<1.2) H 06/06/24 05:41 Abnormal lab findings: Abnormal Labs 06/06/24 06/06/24 06/06/24 05:41 05:41 05:41 WBC 13.5 H Hct 54.5 H MCV 101.2 H Neutrophils # 10.9 H PT 13.1 H INR 1.2 H ABG pH ABG pCO2 ABG pO2 ABG HCO3 ABG Total CO2 ABG O2 Saturation Carbon Dioxide 14 L BUN 41 H Creatinine 3.67 H Glucose 163 H POC Glucose (mg/dL) Plasma Lactic Acid Freedom Calcium 10.5 H Phosphorus 14.4 H* Magnesium 3.4 H AST 499 H ALT 171 H Troponin I Total Protein 8.9 H TSH 9.220 H Urine Protein Urine Blood Urine RBC Urine WBC Ur Squamous Epith Cells Urine Bacteria Urine Mucus 06/06/24 06/06/24 06/06/24 05:41 05:41 06:25 WBC Hct MCV Neutrophils # PT INR ABG pH 7.06 L* ABG pCO2 50 H ABG pO2 >420 H ABG HCO3 14 L ABG Total CO2 16 L ABG O2 Saturation 99.3 H Carbon Dioxide BUN Creatinine Glucose POC Glucose (mg/dL) Plasma Lactic Acid Freedom 11.4 H* Calcium Phosphorus Magnesium AST ALT Troponin I 0.191 H* Total Protein TSH Urine Protein Urine Blood Urine RBC Urine WBC Ur Squamous Epith Cells Urine Bacteria Urine Mucus 06/06/24 06/06/24 06/06/24 07:53 09:05 10:08 WBC Hct MCV Neutrophils # PT INR ABG pH ABG pCO2 ABG pO2 ABG HCO3 ABG Total CO2 ABG O2 Saturation Carbon Dioxide BUN Creatinine Glucose POC Glucose (mg/dL) 61 L Plasma Lactic Acid Freedom 7.7 H* Calcium Phosphorus Magnesium AST ALT Troponin I Total Protein TSH Urine Protein 2+ H Urine Blood Large H Urine RBC 28 H Urine WBC 71 H Ur Squamous Epith Cells 8 H Urine Bacteria Few H Urine Mucus Few H Assessment and Plan Assessment: Cardiac arrest from unknown etiology, unknown downtime Unspecified shock, cardiogenic versus obstructive Elevated troponin High anion gap metabolic acidosis Acute metabolic encephalopathy History of polysubstance abuse Uremia Anuric, acute kidney injury Lactic acidosis Leukocytosis, reactive Plan: Pneumothorax noted on CXR, chest tube was placed Continue mechanical ventilation, no change to settings at this time Low suspicion for PE, no plan for heparin infusion at this time CT brain pending Echo pending EEG ordered Lactic acidosis improving, will follow Monitor renal function Monitor electrolytes Continue normal saline at 150 cc/hr Continue Levophed and Propofol ICU will continue to monitor Prognosis is guarded Time with Patient: Greater than 30
--- NOTE | 2024-06-06 12:28 | P.CNNES ---
History of Present Illness Consult date: 06/06/24 Requesting physician: Tam Parsons Reason for Consult: seizure History of Present Illness: This is a 64-year-old gentleman with history of polysubstance use including heroin, cocaine alcohol use who presents to [facility] emergency department from [place] for witnessed cardiac arrest. History is obtained from primary team. Unclear exactly what transpired at [place] but it seems that the patient has a history of polysubstance abuse and that there is unsure if he had initially the cardiac arrest or syncopal episode that was convulsive that led into the cardiac arrest. Unsure how long the cardiac arrest was. It seems to the patient had multiple rounds of CPR and was intubated in the field a nd was found to be in bradycardia given atropine. The patient had EKG concerning for anterior STEMI and cardiology was consulted and took him directly to the [facility] and his coronary arteries are patent. Patient is intubated on a ventilator in our facility and he is on IV Versed and propofol. Some of the other workup during this hospital visit consisted of: MCV is 101 Creatinine is 3.67, sodium is 143, glucose on presentation is 163 Plasma lactic acid vein is 11.4, calcium 7.5, phosphorus 14.4, magnesium 3.4, AST is 499 and ALT is 171 TSH is 9.20 Review of Systems Limited but the positive and negative as per HPI Past Medical History Past Medical History: Unable to Obtain History of Any Multi-Drug Resistant Organisms: Unobtainable Past Surgical History: Unable to Obtain Past Psychological History: Unable to Obtain Smoking Status: Unknown if ever smoked Past Alcohol Use History: Unable to Obtain Past Drug Use History: Opiates Medications and Allergies Allergies Allergy/AdvReac Type Severity Reaction Status Date / Time Unable to Assess Allergy Verified 06/06/24 05:41 Physical Examination - Vital Signs Vital Signs: Vital Signs Temp Pulse Pulse Resp BP Pulse Ox FiO2 06/06/24 12:02 50 06/06/24 11:49 104 H 06/06/24 11:30 105 H 25 H 100 06/06/24 11:00 104 H 29 H 168/103 100 50 06/06/24 10:30 101 H 38 H 158/109 99 06/06/24 10:00 106 H 36 H 142/93 96 50 06/06/24 09:30 108 H 36 H 139/93 96 06/06/24 09:00 106 H 36 H 139/85 92 L 50 06/06/24 08:53 106 H 06/06/24 08:38 50 06/06/24 08:37 104 H 06/06/24 08:30 101 H 39 H 124/82 94 L 06/06/24 08:27 50 06/06/24 08:00 95.5 F L 105 H 39 H 127/84 99 50 06/06/24 06:30 94.8 F L 129 H 19 126/77 100 60 06/06/24 06:27 100 06/06/24 06:25 94.3 F L 129 H 19 116/71 100 06/06/24 06:15 94.8 F L 131 H 19 129/69 100 06/06/24 06:05 58 L 19 145/98 99 06/06/24 06:00 24 L 19 30/20 06/06/24 05:55 145 H 19 40/32 78 L 06/06/24 05:47 79 16 61/40 91 L 06/06/24 05:40 89 19 50/40 89 L 06/06/24 05:35 100 06/06/24 05:34 96.8 F L 119 H 16 61/38 06/06/24 05:32 79 Intake and Output 06/05/24 06/06/24 06/06/24 22:59 06:59 14:59 Intake Total 300 880.724 Output Total 25 Balance 300 855.724 Intake: IV 300 775 Dextrose 5% in Water 1, 125 000 ml @ 125 mls/hr IV . Q9H12M [facility] with Sodium Bicarb (1 Meq/ml) 150 ml Rx#:[id number] Sodium Chloride 0.9% 1, 450 000 ml @ 150 mls/hr IV . Q6H40M [facility] Rx#:[id number] Intake, IV Titration 105.724 Amount Midazolam HCl 50 mg In 25.066 Sodium Chloride 0.9% 40 ml @ 1 MG/HR 1 mls/hr IV .Q24H [facility] Rx#:[id number] Norepinephrine 4 mg In 27.481 Sodium Chloride 0.9% 250 ml @ 0.03 MCG/KG/MIN 7. 518 mls/hr IV .Q24H [facility] Rx#:[id number] propofoL 1,000 mg In 6.413 Empty Bag 1 bag @ 60 MCG/ KG/MIN 23.678 mls/hr IV . Q4H14M [facility] Rx#:[id number] propofoL 1,000 mg In 46.764 Empty Bag 1 bag @ Titrate IV .Q0M [facility] Rx#: [id number] Output: Urine 25 Other: Weight 65.771 kg 62.8 kg ABP, PAP, CO, CI - Last 8 Hours Arterial Blood Pressure 177/94 General: Lying in bed and does not appear in acute distress. HENT: Supple neck Lung: Intubated on ventilator. Neuro: Limited. Is on IV propofol high-dose as well as Versed maxed out Patient is comatose. Patient is breathing over the vent. Upon manually opening his eyes patient had twitching of his eyes but when the eyes are closed there is no twitching. The pupils are pinpoint round. Primary gaze is midline. Motor: Unable to assess because of his overall condition. But no withdrawaling to painful stimuli. no jerking of any extremities. No twitching any of the extremities. No spontaneous movement. Tone is decreased throughout. Reflex: 0-1 throughout. Plantars are mute b/l. Results - Laboratory Findings CBC and BMP: 06/06/24 05:41 06/06/24 05:41 Abnormal Lab Findings: Abnormal Labs 06/06/24 06/06/24 06/06/24 05:41 05:41 05:41 WBC 13.5 H Hct 54.5 H MCV 101.2 H Neutrophils # 10.9 H PT 13.1 H INR 1.2 H ABG pH ABG pCO2 ABG pO2 ABG HCO3 ABG Total CO2 ABG O2 Saturation Carbon Dioxide 14 L BUN 41 H Creatinine 3.67 H Glucose 163 H POC Glucose (mg/dL) Plasma Lactic Acid Freedom Calcium 10.5 H Phosphorus 14.4 H* Magnesium 3.4 H AST 499 H ALT 171 H Troponin I Total Protein 8.9 H TSH 9.220 H Urine Protein Urine Blood Urine RBC Urine WBC Ur Squamous Epith Cells Urine Bacteria Urine Mucus 06/06/24 06/06/24 06/06/24 05:41 05:41 06:25 WBC Hct MCV Neutrophils # PT INR ABG pH 7.06 L* ABG pCO2 50 H ABG pO2 >420 H ABG HCO3 14 L ABG Total CO2 16 L ABG O2 Saturation 99.3 H Carbon Dioxide BUN Creatinine Glucose POC Glucose (mg/dL) Plasma Lactic Acid Freedom 11.4 H* Calcium Phosphorus Magnesium AST ALT Troponin I 0.191 H* Total Protein TSH Urine Protein Urine Blood Urine RBC Urine WBC Ur Squamous Epith Cells Urine Bacteria Urine Mucus 06/06/24 06/06/24 06/06/24 07:53 09:05 10:08 WBC Hct MCV Neutrophils # PT INR ABG pH ABG pCO2 ABG pO2 ABG HCO3 ABG Total CO2 ABG O2 Saturation Carbon Dioxide BUN Creatinine Glucose POC Glucose (mg/dL) 61 L Plasma Lactic Acid Freedom 7.7 H* Calcium Phosphorus Magnesium AST ALT Troponin I Total Protein TSH Urine Protein 2+ H Urine Blood Large H Urine RBC 28 H Urine WBC 71 H Ur Squamous Epith Cells 8 H Urine Bacteria Few H Urine Mucus Few H 06/06/24 11:50 WBC Hct MCV Neutrophils # PT INR ABG pH ABG pCO2 ABG pO2 ABG HCO3 ABG Total CO2 25 H ABG O2 Saturation Carbon Dioxide BUN Creatinine Glucose POC Glucose (mg/dL) Plasma Lactic Acid Freedom Calcium Phosphorus Magnesium AST ALT Troponin I Total Protein TSH Urine Protein Urine Blood Urine RBC Urine WBC Ur Squamous Epith Cells Urine Bacteria Urine Mucus Assessment and Plan Assessment: Is a 64-year-old gentleman with history of polysubstance abuse including heroin, cocaine, alcohol use who presented from [place] for witnessed cardiac arrest. Unknown exact story or duration of cardiac arrest. Unsure if the patient had syncopal episode that was convulsive that led to cardiac arrest or vice versa. As a result patient had CPR he was intubated in the field. The patient was found to be bradycardic and was given atropine. EKG shows concerning for anterior STEMI and patient was taken for cardiac [facility] and the coronary arteries are patent. Cardiac arrest Probable anoxic brain injury due to above. Also has some component of metabolic derangement that can also give metabolic encephalopathy. Eye twitching examination likely due to above since patient had cerebral anoxia that can lead to seizures/myoclonic seizure. Elevated lactic acid level Elevated electrolyte levels such as phosphorus, magnesium Abnormal TSH Elevated liver function AST more than ALT for alcohol use Kidney insufficiency and unsure if this is acute or chronic. Acute respiratory distress and the patient is intubated on the ventilator History of polysubstance use including heroin, cocaine and alcohol Plan: I ordered CT of the head Routine EEG is ordered I started the patient on Keppra 500 mg twice daily. I also started the patient on Vimpat 50 mg twice daily Ordered ammonia, vitamin B12, folate Patient is on thiamine 250 mg 3 times daily Nephrology team is consulted Will defer the rest of the medical management to primary and other specialist Condition is critical. Plan discussed with patient primary team Thank for the consultation Time with Patient: Greater than 30
[2024-06-06] MEDS: MORPHINE SULFATE 4 MG/ML SYRINGE IV PRN (12:41)
[2024-06-06] MEDS: PANTOPRAZOLE 40 MG/10 ML VIAL IV SCH (12:41)
[2024-06-06] MEDS: Lacosamide IV (ages 17+ yrs) 200 MG/20 ML ML IVP SCH (12:43)
[2024-06-06] MEDS: levETIRAcetam IV 500 MG/5 ML VIAL IVP SCH (12:43)
[2024-06-06 12:49] LABS: Basophils % (A) 0 %; Eosinophils # (A) 0.1 k/uL (0-0.7); Eosinophils % (A) 1 %; HCT 47.7 % (39.0-53.0); HGB 15.6 gm/dL (13.0-17.5); Hypochromasia Slight; Lymphocytes # (A) 0.7 k/uL (1.0-4.8); Lymphocytes % (A) 4 %; MCH 31.8 pg (25.0-35.0); MCHC 32.7 g/dL (31.0-37.0); MCV 97.3 fL (80.0-100.0); Mean Platelet Volume 7.1; Monocytes # (A) 0.7 k/uL (0-1.0); Monocytes % (A) 4 %; Neutrophils # (A) 16.1 k/uL (1.3-7.7); Neutrophils % (A) 91 %; Platelet Count 244 k/uL (150-450); RDW 12.5 % (11.5-15.5); WBC 17.7 k/uL (3.8-10.6)
--- NOTE | 2024-06-06 12:50 | P.CNPUL ---
History of Present Illness Consult date: 06/06/24 Chief complaint: Cardiopulmonary arrest History of present illness: This is a 64-year-old male patient was in [place] and the patient was about to get discharged. He has history of polysubstance abuse including cocaine, heroin alcoholism. The patient developed some mental status change and subsequently the became bradycardic and the apparently collapsed and subsequently found to to be in cardiopulmonary arrest. The original rhythm in formation is not available. Please refer to the emergency notes. Apparently patient was found unresponsive and he stopped breathing and he collapsed. CPR was initiated by EMS. The patient was intubated on the route. Subsequently, CPR was continued in our emergency department. Initial EKG showed some ST segment elevation over the V1 and V2 leads. Based on that, the patient was taken immediately to the [facility] and underwent a cardiac catheterization that this showed essentially normal coronaries. The clinic pressures were also low. The patient was kept intubated and following that he was moved to the intensive care unit. At this point in time, the patient is intubated on mechanical ventilator. He is on propofol which is running at 60 mcg/kg/min is also on a Versed drip at 12 mg an hour. He is on assist-control mode of mechanical ventilation at rate of 18, tidal volume of 400, FiO2 50% with a PEEP of 5. Initial lactic acid level was 11.4 and dropped down to 7.7. Initial blood gases showed a pH of 7.06 with a pCO2 of 50 and pO2 more than 420. Subsequent blood gas showed a pH of 7.39 with a pCO2 of 39 and pO2 of 95 and this was verified to 50%. Chest x-ray showed no consolidation or airspace disease. The morning chest x-ray showed right-sided pneumothorax. Based on that, I inserted a 28 Gabonese chest tube into the right hemithorax and a pneumothorax was drained. C hest tube is currently in place and the patient is positive airleak. Hemodynamically, the patient has no pressors. He is slightly hypothermic and his most recent temperature is at 95.5 degrees. The white cell count of 13.5 with a hemoglobin 17.5 and a platelet count of 315. The patient has sustained acute kidney injury with a BUN of 41 with a creatinine of 3.6 and urine output is only a (an hour. Serum bicarb is at 14 with an anion gap of 28. Sodium is at 143. AST is 499, ALT is 171, troponin is at 0.191 and proBNP level is 18,300. TSH is at 9.2. UA showed 28 RBCs and 71 WBCs. CAT scan of the brain has not been done. Neurologically, the patient is not withdrawing to painful stimulation. No seizure activity. Pupils are round 2 mm in size, symmetrical. Reflexes are quite diminished in all 4 EXTR. He is breathing about the mechanical ventilator. Review of Systems ROS unobtainable: due to endotracheal tube Past Medical History Past Medical History: Unable to Obtain History of Any Multi-Drug Resistant Organisms: Unobtainable Past Surgical History: Unable to Obtain Past Psychological History: Unable to Obtain Smoking Status: Unknown if ever smoked Past Alcohol Use History: Unable to Obtain Past Drug Use History: Opiates Medications and Allergies Allergies Allergy/AdvReac Type Severity Reaction Status Date / Time Unable to Assess Allergy Verified 06/06/24 05:41 Physical Exam Vitals: Vital Signs Temp Pulse Pulse Resp BP Pulse Ox FiO2 06/06/24 08:53 106 H 06/06/24 08:38 50 06/06/24 08:37 104 H 06/06/24 08:27 50 06/06/24 06:30 94.8 F L 129 H 19 126/77 100 60 06/06/24 06:27 100 06/06/24 06:25 94.3 F L 129 H 19 116/71 100 06/06/24 06:15 94.8 F L 131 H 19 129/69 100 06/06/24 06:05 58 L 19 145/98 99 06/06/24 06:00 24 L 19 30/20 06/06/24 05:55 145 H 19 40/32 78 L 06/06/24 05:47 79 16 61/40 91 L 06/06/24 05:40 89 19 50/40 89 L 06/06/24 05:35 100 06/06/24 05:34 96.8 F L 119 H 16 61/38 06/06/24 05:32 79 Intake and Output 06/05/24 06/06/24 06/06/24 22:59 06:59 14:59 Intake Total 300 228.547 Balance 300 228.547 Intake: IV 300 200 Intake, IV Titration 28.547 Amount Midazolam HCl 50 mg In 1.066 Sodium Chloride 0.9% 40 ml @ 1 MG/HR 1 mls/hr IV .Q24H [facility] Rx#:[id number] Norepinephrine 4 mg In 27.481 Sodium Chloride 0.9% 250 ml @ 0.03 MCG/KG/MIN 7. 518 mls/hr IV .Q24H [facility] Rx#:[id number] Other: Weight 65.771 kg General: Lying in bed and does not appear in acute distress. Remains on mechanical ventilator. Intubated and orogastric and orotracheal tube are both in place. Head exam was generally normal. There was no scleral icterus or corneal arcus. Mucous membranes were moist. Neck was supple and without jugular venous distension, thyromegaly, or carotid bruits. Carotids were easily palpable bilaterally. There was no adenopathy. The patient has a right IJ triple-lumen catheter in place. Lung: Breath sounds are equal and symmetrical the patient has a right-sided chest tube in place. Abdominal exam revealed normal bowel sounds. The abdomen was soft, non-tender, and without masses, organomegaly, or appreciable enlargement of the abdominal aorta. Examination of the extremities revealed easily palpable radial, femoral and pedal pulses. There was no cyanosis, clubbing or edema. The patient has an intraosseous line in his left lower extremity Examination of the skin revealed no evidence of significant rashes, suspicious appearing nevi or other concerning lesions. Neuro: Limited. Is on IV propofol high-dose as well as Versed maxed out Patient is comatose. Patient is breathing over the vent. Upon manually opening his eyes patient had twitching of his eyes but when the eyes are closed there is no twitching. The pupils are pinpoint round. Primary gaze is midline. Motor: Unable to assess because of his overall condition. But no withdrawaling to painful stimuli. no jerking of any extremities. No twitching any of the extremities. No spontaneous movement. Tone is decreased throughout. Reflex: 0-1 throughout. Plantars are mute b/l. Results - Laboratory Findings CBC and BMP: 06/06/24 05:41 06/06/24 05:41 ABG ABG pH 7.06 (7.35-7.45) L* 06/06/24 06:25 ABG pCO2 50 mmHg (35-45) H 06/06/24 06:25 ABG pO2 >420 mmHg (83-108) H 06/06/24 06:25 ABG O2 Saturation 99.3 % (94-97) H 06/06/24 06:25 PT/INR, D-dimer PT 13.1 sec (10.0-12.5) H 06/06/24 05:41 INR 1.2 (<1.2) H 06/06/24 05:41 Abnormal lab findings: Abnormal Labs 06/06/24 06/06/24 06/06/24 05:41 05:41 05:41 WBC 13.5 H Hct 54.5 H MCV 101.2 H Neutrophils # 10.9 H PT 13.1 H INR 1.2 H ABG pH ABG pCO2 ABG pO2 ABG HCO3 ABG Total CO2 ABG O2 Saturation Carbon Dioxide 14 L BUN 41 H Creatinine 3.67 H Glucose 163 H POC Glucose (mg/dL) Plasma Lactic Acid Freedom Calcium 10.5 H Phosphorus 14.4 H* Magnesium 3.4 H AST 499 H ALT 171 H Troponin I Total Protein 8.9 H TSH 9.220 H 06/06/24 06/06/24 06/06/24 05:41 05:41 06:25 WBC Hct MCV Neutrophils # PT INR ABG pH 7.06 L* ABG pCO2 50 H ABG pO2 >420 H ABG HCO3 14 L ABG Total CO2 16 L ABG O2 Saturation 99.3 H Carbon Dioxide BUN Creatinine Glucose POC Glucose (mg/dL) Plasma Lactic Acid Freedom 11.4 H* Calcium Phosphorus Magnesium AST ALT Troponin I 0.191 H* Total Protein TSH 06/06/24 06/06/24 07:53 09:05 WBC Hct MCV Neutrophils # PT INR ABG pH ABG pCO2 ABG pO2 ABG HCO3 ABG Total CO2 ABG O2 Saturation Carbon Dioxide BUN Creatinine Glucose POC Glucose (mg/dL) 61 L Plasma Lactic Acid Freedom 7.7 H* Calcium Phosphorus Magnesium AST ALT Troponin I Total Protein TSH - Diagnostic Findings Chest x-ray: image reviewed Assessment and Plan Plan: Acute cardiopulmonary arrest. Exact cause is not clear. This could have been related to an acute drug overdose as the patient had to stop breathing and subsequently went into cardiopulmonary arrest. Information regarding the downtime and initial cardiac rhythm is unavailable at this point in time. Patient was resuscitated, intubated in the field and there is return of the spontaneous blood pressure and hemodynamics. Currently on no pressors. Intubated on the mechanical ventilator. ST segment elevations with normal coronaries based on the coronary angiogram Acute unresponsiveness, currently under investigation. Will need a CAT scan of the brain. Acute kidney injury Acute lactic acidosis secondary to above, improving, please refer to the most recent blood gas Acute respiratory failure, nonhypoxic, hypercapnic, currently intubated on mechanical ventilator Right-sided pneumothorax could be iatrogenic secondary to line insertion as the patient had right IJ triple-lumen catheter inserted in the emergency. Could be also related to CPR. Right-sided chest tube was inserted with reexpansion of the right lung and there is positive air leak Polysubstance abuse including cocaine, heroin and alcoholism Unresponsiveness, currently on a combination of propofol and Versed. Consider underlying possibility of hypoxic encephalopathy. Will need a CAT scan of the brain Hypothermia Abnormal LFTs could be related to alcoholism. Plan Continue ventilator support Wean the FiO2 and the patient is currently down to 50% Right-sided chest tube has been inserted Cover the patient empirically with IV Unasyn Continue IV fluids with normal saline at rate of 150 cc an hour Obtain an echocardiogram Obtain a CAT scan of the brain No need for anticoagulation for now. Possibility of pulmonary embolism extremely low. The patient is oxygenating normally Marked the patient's temperature and avoid hyperthermia Arterial line will be inserted Cover the patient on a combination of propofol and Versed for now Neurology consultation Cardiology consultation Nephrology consultation Ultrasound of the kidneys Monitor LFTs Lactic acid level is improving Condition is critical and will continue to follow make further recommendations based on the progress. Evaluation was done more than 30 minutes excluding time to do any procedures. Time with Patient: Greater than 30
--- NOTE | 2024-06-06 12:52 | P.PCN ---
Date of Procedure: 06/06/24 Preoperative Diagnosis: Cardiac arrest Postoperative Diagnosis: Cardiac arrest Procedure(s) Performed: Arterial line Anesthesia: local Surgeon: Rabia Lopez Estimated Blood Loss (ml): 0 Pathology: other Condition: critical Disposition: ICU Operative Findings: A time-out was completed verifying correct patient, procedure, site, positioning, and implant(s) or special equipment if applicable. Allens test was performed to ensure adequate perfusion. The patients right breast was prepped and draped in sterile fashion. 1% Lidocaine was used to anesthetize the area. An 18G Arrow arterial line was introduced into the right radial artery. The catheter was threaded over the guide wire and the needle was removed with appropriate pulsatile blood return. Blood loss was minimal. The catheter was then sutured in place to the skin and a sterile dressing applied. Perfusion to the extremity distal to the point of catheter insertion was checked and found to be adequate. The patient tolerated the procedure well and there were no complications.
--- NOTE | 2024-06-06 12:54 | P.PCN ---
Date of Procedure: 06/06/24 Preoperative Diagnosis: Right pneumothorax Postoperative Diagnosis: Right pneumothorax Procedure(s) Performed: Chest tube, right-sided Anesthesia: local Surgeon: Rabia Lopez Pathology: other Condition: critical Disposition: ICU Description of Procedure: A time-out was completed verifying correct patient, procedure, site, positioning, and special equipment if applicable. The patient was positioned appropriately for chest tube placement. The patients right chest was prepped and draped in sterile fashion. 1% Lidocaine was used to anesthetize the surrounding skin area. A 2 cm skin incision was made in the mid-axillary line at the inframammarycrease. Utilizing blunt dissection a subcutaneous tunnel was created cephalad just adjacent to the superior rib. The pleural space was entered bluntly and gush of air was observed. A finger was inserted into the pleural space to check for anatomy and guide tube insertion. A 32 thoracostomy tube was inserted using a Sharmaine clamp and positioned appropriately. The chest tube was sutured securely to the skin and a sterile dressing applied. A pleurevac was attached to the chest tube and a chest x-ray obtained. I personally performed this procedure and I was was present for the entire procedure. Estimated Blood Loss: 0 The patient tolerated the procedure well and there were no complications.
[2024-06-06 13:15] LABS: African American GFR (CKD) 24 (>60 ml/min/1.73 sqM); Anion Gap 17 mmol/L; Blood Urea Nitrogen 51 mg/dL (9-20); Carbon Dioxide 22 mmol/L (22-30); Chloride 106 mmol/L (98-107); Glucose 111 mg/dL (74-99); Non-African American GFR(CKD) 21 (>60 ml/min/1.73 sqM); Sodium 145 mmol/L (137-145)
[2024-06-06 13:20] LABS: ALT 375 U/L (4-49); African American GFR (CKD) 23 (>60 ml/min/1.73 sqM); Albumin 3.5 g/dL (3.5-5.0); Alkaline Phosphatase 69 U/L (38-126); Anion Gap 14 mmol/L; Blood Urea Nitrogen 51 mg/dL (9-20); Calcium 7.8 mg/dL (8.4-10.2); Carbon Dioxide 23 mmol/L (22-30); Chloride 106 mmol/L (98-107); Glucose 114 mg/dL (74-99); Magnesium 2.1 mg/dL (1.6-2.3); Non-African American GFR(CKD) 20 (>60 ml/min/1.73 sqM); Sodium 143 mmol/L (137-145); Total Bilirubin 1.3 mg/dL (0.2-1.3); Total Protein 7.2 g/dL (6.3-8.2)
[2024-06-06] MEDS: CLEVIDIPINE BUTYRATE 25 MG in EMPTY BAG 1 BAG IV SCH (13:20)
[2024-06-06 13:29] LABS: AST 1197 U/L (17-59)
[2024-06-06] MEDS: THIAMINE 250 MG in SODIUM CHLORIDE 0.9% 50 ML IVPB SCH (13:52)
--- NOTE | 2024-06-06 14:09 | US ---
EXAMINATION TYPE: US kidneys/renal and bladder DATE OF EXAM: 06/06/2024 COMPARISON: NONE CLINICAL INDICATION: Male, 64 years old with history of JAYASHREE; Patient was at treatment [facility] noticed patient was not acting himself; AMS - patient coded in EMS; now in ICU on vent - unable to obtain full history, signs, or symptoms. EXAM MEASUREMENTS: Right Kidney: 12.6 x 4.6 x 6.0 cm Left Kidney: 11.5 x 5.8 x 5.3 cm Post Void Residual Volume: NA mL Right Kidney: wnl Left Kidney: wnl Bladder: Not fully distended; Griggs noted within; WNL as visualized Bilateral Jets seen: Not able to assess Normal Post Void Residual: not able to assess There is no evidence for hydronephrosis at this point in time. No nephrolithiasis is seen. No jeanine s are identified. The urinary bladder is anechoic. Bilateral ureteral jets are seen. Trace fluid noted within right lower flank IMPRESSION: 1. No renal calcification or hydronephrosis. 2. Diffusely increased renal echotexture but no cortical thinning or cortical mass. 3. Urinary bladder not evaluated due to nondistention secondary to Griggs catheter. 4. Renal echotexture could indicate medical renal disease. Clinical correlation recommended
[2024-06-06 14:57] LABS: Creatine Kinase 21310 U/L (55-170)
[2024-06-06] MEDS: MIDAZOLAM HCL 200 MG in SODIUM CHLORIDE 0.9% 60 ML IV SCH (15:00)
--- NOTE | 2024-06-06 16:09 | CA ---
Transthoracic Echo Report Name: Yifan Monroe Age: 64 Gender: M : 1960 Exam Date: 06/06/2024 09:13 Exam Location: [facility] Ht (in): 68 Wt (lb): 145 Ordering Physician: Jacques Romero MD ([id number]) Attending/Referring Phys: Health And Safety Director Sharmaine Serra RDCS Procedure CPT: Indications: stemi Cardiac Hx: Technical Quality: Fair Contrast 1: Total Dose (mL): Contrast 2: Total Dose (mL): MEASUREMENTS (Male / Female) Normal Values 2D ECHO LV Diastolic Diameter PLAX 2.5 cm 4.2 - 5.9 / 3.9 - 5.3 cm LV Systolic Diameter PLAX 1.7 cm IVS Diastolic Thickness 1.5 cm 0.6 - 1.0 / 0.6 - 0.9 cm LVPW Diastolic Thickness 1.3 cm 0.6 - 1.0 / 0.6 - 0.9 cm LV Relative Wall Thickness 1.2 LVOT Diameter 1.9 cm LV Diastolic Volume MOD BP 77.8 cm??? 67 - 155 / 56 - 104 cm??? LV Systolic Volume MOD BP 24.0 cm??? 22 - 58 / 19 - 49 cm??? LV Ejection Fraction MOD BP 69.2 % >= 55 % LV Cardiac Index MOD BP 3240.8 cm???/min???m??? LV Diastolic Volume MOD 4C 78.2 cm??? LV Systolic Volume MOD 4C 22.1 cm??? LV Ejection Fraction MOD 4C 71.8 % LV Cardiac Index MOD 4C 3382.9 cm???/min???m??? LV Diastolic Length 4C 8.1 cm LV Systolic Length 4C 6.4 cm LV Diastolic Volume MOD 2C 74.8 cm??? LV Systolic Volume MOD 2C 25.4 cm??? LV Ejection Fraction MOD 2C 66.1 % LV Cardiac Index MOD 2C 2975.5 cm???/min???m??? LV Diastolic Length 2C 8.4 cm LV Systolic Length 2C 6.8 cm LA Volume 40.0 cm??? 18 - 58 / 22 - 52 cm??? LA Volume Index 22.5 cm???/m??? 16 - 28 cm???/m??? DOPPLER AV Peak Velocity 92.8 cm/s AV Peak Gradient 3.4 mmHg AV Mean Velocity 65.0 cm/s AV Mean Gradient 1.9 mmHg AV Velocity Time Integral 13.1 cm LVOT Peak Velocity 97.3 cm/s LVOT Peak Gradient 3.8 mmHg LVOT Velocity Time Integral 16.3 cm LVOT Stroke Volume 47.0 cm??? LVOT Stroke Volume Index 26.4 ml/m??? LVOT Cardiac Index 2832.5 cm???/min???m??? AV Area Cont Eq vti 3.6 cm??? AV Area Cont Eq pk 3.0 cm??? TR Peak Velocity 231.0 cm/s TR Peak Gradient 21.3 mmHg Right Atrial Pressure 20.0 mmHg Pulmonary Artery Systolic Pressu 41.3 mmHg Right Ventricular Systolic Press 41.3 mmHg PV Peak Velocity 91.6 cm/s PV Peak Gradient 3.4 mmHg FINDINGS Left Ventricle Left ventricular ejection fraction is estimated at 65-70 %. Severe increased wall thickness. Left ventricular cavity size normal. Hyperdynamic left ventricular systolic function. No obvious regional wall motion abnormalities. Aneurysmal inter-atrial septum Right Ventricle Normal right ventricular size and function. Right ventricular systolic pressure within normal limits. Right Atrium Normal right atrial size. Left Atrium Normal left atrial size. Mitral Valve Mitral valve thickened. Mitral annular calcification. No evidence for mitral valve prolapse. No mitral stenosis. No mitral regurgitation. Aortic Valve Trileaflet aortic valve. No aortic valve stenosis or regurgitation. Tricuspid Valve Structurally normal tricuspid valve. No tricuspid stenosis. Mild tricuspid regurgitation. Pulmonic Valve Pulmonic valve not well visualized. No pulmonic stenosis. No pulmonic regurgitation. Pericardium No pericardial effusion. Aorta Aortic annulus normal. CONCLUSIONS Left ventricular ejection fraction is estimated at 65-70 %. Severe increased wall thickness. No obvious regional wall motion abnormalities. No significant valvular dysfunction Normal RV size and systolic function RVSP estimated at 41 mmHg. Low clinical suspicion for acute pulm embolism IVC is collapsed suggestive of being intravascularly volume depleted Previewed by: Dr Jacques Romero (Electronically Signed) Final Date: 06 June 2024 16:09
[2024-06-06] MEDS: AMPICILLIN-SULBACTAM 1.5 GM in SODIUM CHLORIDE 0.9% 50 ML IVPB SCH (17:00)
--- NOTE | 2024-06-06 17:34 | CT ---
EXAMINATION TYPE: CT brain wo con DATE OF EXAM: 06/06/2024 COMPARISON: None HISTORY: ams CT DLP: 1168.4 mGycm Automated exposure control for dose reduction was used. Findings: The ventricles, basal cisterns and sulci over the convexities are within normal limits and there is n o mass effect or shift of midline structures. No abnormal density is seen throughout the brain parenchyma and there is no acute intra or extra-axia l hemorrhage. The posterior fossa including the brainstem, fourth ventricle and cerebellar pontine angles appear no rmal. Intraorbital contents appear normal and symmetric. Visualized paranasal sinuses and mastoid air cells are well aerated. The calvarium is intact. IMPRESSION: No significant abnormality seen. There is no acute bleed or mass effect.
[2024-06-06 17:50] LABS: Glucose,Whole Blood 129 mg/dL (70-110)
[2024-06-06] MEDS: POTASSIUM CHLORIDE 20 MEQ in WATER FOR INJECTION 1 100ML.BAG IVPB SCH (17:52)
[2024-06-06] MEDS ORDERED: DEXTROSE 5% IN WATER 1,000 ML with SODIUM BICARB (1 MEQ/ML) 150 ML IV SCH (18:05)
[2024-06-06 18:54] LABS: Urine Alcohol Negative (Negative); Urine Barbiturate Negative (Negative); Urine Cocaine Positive (Negative); Urine Methadone Negative (Negative); Urine Opiates Negative (Negative); Urine Phencyclidine Negative (Negative)
[2024-06-06] MEDS: HEPARIN SODIUM,PORCINE 5,000 UNIT/ML 1 ML VIAL SQ SCH (21:14)
[2024-06-07] MEDS: IPRATROPIUM-ALBUTEROL 3 ML NEB INHALATION PRN (00:21)
[2024-06-07 01:18] LABS: Glucose,Whole Blood 163 mg/dL (70-110)
[2024-06-07 04:54] LABS: Basophils % (A) 0 %; Eosinophils # (A) 0.1 k/uL (0-0.7); Eosinophils % (A) 1 %; HCT 41.9 % (39.0-53.0); HGB 13.8 gm/dL (13.0-17.5); Lymphocytes # (A) 0.7 k/uL (1.0-4.8); Lymphocytes % (A) 5 %; MCH 31.1 pg (25.0-35.0); MCHC 32.8 g/dL (31.0-37.0); MCV 94.8 fL (80.0-100.0); Mean Platelet Volume 8.7; Monocytes # (A) 0.4 k/uL (0-1.0); Monocytes % (A) 3 %; Neutrophils # (A) 13.1 k/uL (1.3-7.7); Neutrophils % (A) 91 %; Platelet Count 232 k/uL (150-450); RBC 4.42 m/uL (4.30-5.90); RDW 12.4 % (11.5-15.5); WBC 14.3 k/uL (3.8-10.6)
[2024-06-07 05:07] LABS: Magnesium 1.9 mg/dL (1.6-2.3)
[2024-06-07 05:25] LABS: ABG Base Excess 9.1 mmol/L; ABG HCO3 30 mmol/L (21-25); ABG Oxygen Saturation 99.2 % (94-97); ABG PCO2 31 mmHg (35-45); ABG PO2 121 mmHg (83-108); ABG TCO2 31 mmol/L (19-24); Allen Test Performed? Yes
[2024-06-07 05:29] LABS: ABG PH 7.61 (7.35-7.45)
[2024-06-07 06:25] LABS: Glucose,Whole Blood 148 mg/dL (70-110)
--- NOTE | 2024-06-07 06:49 | XR ---
EXAMINATION TYPE: XR chest 1V DATE OF EXAM: 06/07/2024 COMPARISON: 06/06/2024 HISTORY: Tube placement TECHNIQUE: Single frontal view of the chest is obtained. FINDINGS: There is an ET tube 6.4 cm above the tahir. There is an NG tube within the stomach. There is a right jugular central venous catheter in the SVC/RA junction. There is a right chest tube in the right lung base. There is no pneumothorax. There is no large pleural effusion There is no airspace consolidation. The heart size is normal The osseous structures are intact IMPRESSION: . ET tube 6.4 cm above the tahir. 2. Right-sided chest tube with no pneumothorax. 3. No significant interval change compared to previous.
[2024-06-07] MEDS: POTASSIUM CHLORIDE 20 MEQ in WATER FOR INJECTION 1 100ML.BAG IVPB SCH (08:26)
[2024-06-07] MEDS: CHLORHEXIDINE GLUCONATE 15 ML CUP MUCOUS MEM SCH (08:50)
[2024-06-07 09:09] LABS: Hepatitis B Core IgM Nonreactive (Nonreactive); Hepatitis C IgG Antibody Reactive (Nonreactive)
[2024-06-07] MEDS: SODIUM CHLORIDE 0.45% 1,000 ML IV SCH (09:45)
[2024-06-07 10:37] LABS: African American GFR (CKD) 24 (>60 ml/min/1.73 sqM); Anion Gap 6 mmol/L; Blood Urea Nitrogen 59 mg/dL (9-20); Calcium 6.5 mg/dL (8.4-10.2); Carbon Dioxide 32 mmol/L (22-30); Chloride 102 mmol/L (98-107); Glucose 149 mg/dL (74-99); Non-African American GFR(CKD) 21 (>60 ml/min/1.73 sqM); Sodium 140 mmol/L (137-145)
--- NOTE | 2024-06-07 11:08 | P.PN ---
Subjective Progress Note Date: 06/07/24 I am following up with the patient and the patient continues to be intubated on the ventilator and is on IV Versed and IV propofol. This seems to the patient continues to have eye twitching at this time it is without stimulation. Per the nurse I was notified it seems the patient had a total of 20 minutes c ardiac arrest that is reported on medical record. Objective - Vital Signs Vital signs: Vital Signs Temp 98.2 F 06/07/24 08:00 Pulse 108 H 06/07/24 09:59 Resp 15 06/07/24 09:00 BP 113/68 06/07/24 09:00 Pulse Ox 100 06/07/24 09:00 FiO2 50 06/07/24 09:50 Intake & Output 06/06/24 06/07/24 06/07/24 18:59 06:59 18:59 Intake Total 2148.938 2473.715 680 Output Total 380 1165 240 Balance 2650.075 3877.715 440 Weight 62.8 kg 65.4 kg Intake: IV 1730 2040 580 0.9% NS KVO 90 30 Ampicillin-Sulbactam 1.5 100 100 50 gm In Sodium Chloride 0.9 % 50 ml @ 100 mls/hr IVPB Q8HR [facility] Rx#:[id number] Dextrose 5% in Water 1, 900 000 ml @ 150 mls/hr IV . Q7H40M [facility] with Sodium Bicarb (1 Meq/ml) 150 ml Rx#:[id number] Dextrose 5% in Water 1, 1800 450 000 ml @ 150 mls/hr IV . Q7H40M [facility] with Sodium Bicarb (1 Meq/ml) 150 ml Rx#:[id number] Invasive Line 2 30 Sodium Chloride 0.9% 1, 450 000 ml @ 150 mls/hr IV . Q6H40M [facility] Rx#:[id number] Thiamine 250 mg In Sodium 50 50 50 Chloride 0.9% 50 ml @ 100 mls/hr IVPB TID [facility] Rx#:[id number] Intake, IV Titration 418.938 433.715 100 Amount Clevidipine Butyrate 25 41.400 77.866 mg In Empty Bag 1 bag @ 1 MG/HR 2 mls/hr IV .Q24H [facility] Rx#:[id number] Midazolam HCl 200 mg In 78.633 Sodium Chloride 0.9% 60 ml @ 1 MG/HR 0.5 mls/hr IV .Q24H [facility] Rx#: [id number] Midazolam HCl 50 mg In 75.066 Sodium Chloride 0.9% 40 ml @ 1 MG/HR 1 mls/hr IV .Q24H [facility] Rx#:[id number] Norepinephrine 4 mg In 27.481 Sodium Chloride 0.9% 250 ml @ 0.03 MCG/KG/MIN 7. 518 mls/hr IV .Q24H [facility] Rx#:[id number] propofoL 1,000 mg In 228.227 277.216 100 Empty Bag 1 bag @ 60 MCG/ KG/MIN 23.678 mls/hr IV . Q4H14M [facility] Rx#:[id number] propofoL 1,000 mg In 46.764 Empty Bag 1 bag @ Titrate IV .Q0M ONE Rx#: [id number] Output: Chest Tube Drainage 0 0 Chest Tube Right Lateral 0 0 Chest Gastric Drainage 350 Urine 380 815 240 Other: Voiding Method Indwelling Catheter Indwelling Catheter Indwelling Catheter # Bowel Movements 0 ABP, PAP, CO, CI - Last Documented Arterial Blood Pressure 124/55 - Exam General: Lying in bed and does not appear in acute distress. HENT: Supple neck Lung: Intubated on ventilator. Neuro: Limited. Is on IV propofol high-dose as well as Versed maxed out Patient is comatose. Patient is breathing over the vent. Patient has twitching of eyes without stimulation. Manually open eyes and the pupils are pinpoint round and primary gaze is midline. Motor: Unable to assess because of his overall condition. But no withdrawaling to painful stimuli. no jerking of any extremities. No twitching any of the extremities. No spontaneous movement. Tone is decreased throughout. Reflex: 0-1 throughout. Plantars are mute b/l. Some of the other workup during this hospital visit consisted of: MCV is 101 Creatinine is 3.67, sodium is 143, glucose on presentation is 163 Plasma lactic acid vein is 11.4, calcium 7.5, phosphorus 14.4, magnesium 3.4, AST is 499 and ALT is 171 TSH is 9.20 Serum B12: 735 Serum folate: 15.7 Ammonia: <9 CT head: No significant abnormality seen. There is no acute bleed or mass effect - Labs CBC & Chem 7: 06/07/24 04:42 06/07/24 04:42 Labs: Abnormal Lab Results - Last 24 Hours (Table) 06/06/24 06/06/24 06/06/24 Range/Units 10:08 11:50 12:28 WBC (3.8-10.6) k/uL Neutrophils # (1.3-7.7) k/uL Lymphocytes # (1.0-4.8) k/uL ABG pH (7.35-7.45) ABG pCO2 (35-45) mmHg ABG pO2 (83-108) mmHg ABG HCO3 (21-25) mmol/L ABG Total CO2 25 H (19-24) mmol/L ABG O2 Saturation (94-97) % Potassium 3.0 L (3.5-5.1) mmol/L Carbon Dioxide (22-30) mmol/L BUN 51 H (9-20) mg/dL Creatinine 3.08 H (0.66-1.25) mg/dL Glucose 114 H (74-99) mg/dL POC Glucose (mg/dL) (70-110) mg/dL Calcium 7.8 L (8.4-10.2) mg/dL Phosphorus (2.5-4.5) mg/dL AST 1197 H (17-59) U/L ALT 375 H (4-49) U/L Creatine Kinase 81629 H* (55-170) U/L U Benzodiazepines Scrn Positive A (Negative) Urine Cocaine Screen Positive A (Negative) Hep C IgG Ab (Nonreactive) 06/06/24 06/06/24 06/06/24 Range/Units 12:28 12:28 12:29 WBC 17.7 H (3.8-10.6) k/uL Neutrophils # 16.1 H (1.3-7.7) k/uL Lymphocytes # 0.7 L (1.0-4.8) k/uL ABG pH (7.35-7.45) ABG pCO2 (35-45) mmHg ABG pO2 (83-108) mmHg ABG HCO3 (21-25) mmol/L ABG Total CO2 (19-24) mmol/L ABG O2 Saturation (94-97) % Potassium 3.0 L (3.5-5.1) mmol/L Carbon Dioxide (22-30) mmol/L BUN 51 H (9-20) mg/dL Creatinine 3.02 H (0.66-1.25) mg/dL Glucose 111 H (74-99) mg/dL POC Glucose (mg/dL) (70-110) mg/dL Calcium 8.0 L (8.4-10.2) mg/dL Phosphorus (2.5-4.5) mg/dL AST (17-59) U/L ALT (4-49) U/L Creatine Kinase (55-170) U/L U Benzodiazepines Scrn (Negative) Urine Cocaine Screen (Negative) Hep C IgG Ab Reactive A (Nonreactive) 06/06/24 06/07/24 06/07/24 Range/Units 17:47 01:16 01:17 WBC (3.8-10.6) k/uL Neutrophils # (1.3-7.7) k/uL Lymphocytes # (1.0-4.8) k/uL ABG pH (7.35-7.45) ABG pCO2 (35-45) mmHg ABG pO2 (83-108) mmHg ABG HCO3 (21-25) mmol/L ABG Total CO2 (19-24) mmol/L ABG O2 Saturation (94-97) % Potassium 2.9 L (3.5-5.1) mmol/L Carbon Dioxide (22-30) mmol/L BUN (9-20) mg/dL Creatinine (0.66-1.25) mg/dL Glucose (74-99) mg/dL POC Glucose (mg/dL) 129 H 163 H (70-110) mg/dL Calcium (8.4-10.2) mg/dL Phosphorus (2.5-4.5) mg/dL AST (17-59) U/L ALT (4-49) U/L Creatine Kinase (55-170) U/L U Benzodiazepines Scrn (Negative) Urine Cocaine Screen (Negative) Hep C IgG Ab (Nonreactive) 06/07/24 06/07/24 06/07/24 Range/Units 04:42 04:42 04:42 WBC 14.3 H (3.8-10.6) k/uL Neutrophils # 13.1 H (1.3-7.7) k/uL Lymphocytes # 0.7 L (1.0-4.8) k/uL ABG pH (7.35-7.45) ABG pCO2 (35-45) mmHg ABG pO2 (83-108) mmHg ABG HCO3 (21-25) mmol/L ABG Total CO2 (19-24) mmol/L ABG O2 Saturation (94-97) % Potassium 3.0 L (3.5-5.1) mmol/L Carbon Dioxide 32 H (22-30) mmol/L BUN 59 H (9-20) mg/dL Creatinine 2.96 H (0.66-1.25) mg/dL Glucose 149 H (74-99) mg/dL POC Glucose (mg/dL) (70-110) mg/dL Calcium 6.5 L (8.4-10.2) mg/dL Phosphorus 5.0 H (2.5-4.5) mg/dL AST (17-59) U/L ALT (4-49) U/L Creatine Kinase (55-170) U/L U Benzodiazepines Scrn (Negative) Urine Cocaine Screen (Negative) Hep C IgG Ab (Nonreactive) 06/07/24 06/07/24 Range/Units 05:24 06:24 WBC (3.8-10.6) k/uL Neutrophils # (1.3-7.7) k/uL Lymphocytes # (1.0-4.8) k/uL ABG pH 7.61 H* (7.35-7.45) ABG pCO2 31 L (35-45) mmHg ABG pO2 121 H (83-108) mmHg ABG HCO3 30 H (21-25) mmol/L ABG Total CO2 31 H (19-24) mmol/L ABG O2 Saturation 99.2 H (94-97) % Potassium (3.5-5.1) mmol/L Carbon Dioxide (22-30) mmol/L BUN (9-20) mg/dL Creatinine (0.66-1.25) mg/dL Glucose (74-99) mg/dL POC Glucose (mg/dL) 148 H (70-110) mg/dL Calcium (8.4-10.2) mg/dL Phosphorus (2.5-4.5) mg/dL AST (17-59) U/L ALT (4-49) U/L Creatine Kinase (55-170) U/L U Benzodiazepines Scrn (Negative) Urine Cocaine Screen (Negative) Hep C IgG Ab (Nonreactive) Assessment and Plan Assessment: Is a 64-year-old gentleman with history of polysubstance abuse including heroin, cocaine, alcohol use who presented from [place] for witnessed cardiac arrest. Unknown exact story or duration of cardiac arrest. Unsure if the patient had syncopal episode that was convulsive that led to cardiac arrest or vice versa. As a result patient had CPR he was intubated in the field. The patient was found to be bradycardic and was given atropine. EKG shows concerning for anterior STEMI and patient was taken for cardiac [employer] and the coronary arteries are patent. Outside hospital Cardiac arrest (duration for 20 minutes) Likely anoxic brain injury due to above. Also has some component of metabolic derangement that can also give metabolic encephalopathy. CT head is negative for acute or subacute process or bleed. Eye twitching examination likely due to above since patient had cerebral anoxia that can lead to seizures/myoclonic seizure. Elevated lactic acid level Elevated electrolyte levels such as phosphorus, magnesium Abnormal TSH Elevated liver function AST more than ALT for alcohol use Kidney insufficiency and unsure if this is acute or chronic. Acute respiratory distress and the patient is intubated on the ventilator History of polysubstance use including heroin, cocaine and alcohol Plan: Keppra 500 mg twice daily and Vimpat 50 mg twice daily for his eyes twitching concerning for seizure/myoclonus seizure which was started on 06/06/2024. Preliminary EEG: No seizure or discharges. Patient is on thiamine 250 mg 3 times daily Nephrology team is consulted Will defer the rest of the medical management to primary and other specialist Condition is critical. His overall prognosis appears very poor. Recommend sedation holiday tomorrow for further evaluation of his neurological examination if possible. Plan discussed with patient primary team. Time with Patient: Less than 30
--- NOTE | 2024-06-07 11:10 | P.PN ---
Subjective Progress Note Date: 06/07/24 Hospital Course: 64-year-old male with history of polysubstance abuse including heroin, cocaine, alcohol presenting from [place] for witnessed cardiac arrest. Unknown downtime. Per report, patient possibly had seizure-like activity after having a cardiac arrest. He had multiple rounds of CPR, was intubated in the field. After getting to the hospital, he was found to be bradycardic, given atropine. EKG concerning for anterior STEMI with ST elevations in aVR and V1. Cardiology was consulted and patient taken directly to [employer]. Coronary arteries are patent. Patient now in the ICU. Initially patient blood pressure was 61/38, mechanically ventilated, respiratory 16, pulse 119, temperature 96.8. WBC 13.5, pH 7. 06, pCO2 50, sodium 143, potassium 4.2, bicarb 14, anion gap 28, creatinine 3.67, lactate 11.4, glucose 163, calcium 10.5, alk phos 14.4, AST 499, ALT 171, troponin 0.191, proBNP 18,000, TSH 9.22. Chest x-ray independently interpreted, did not show any opacities, ET tube, central line, NG tube in place. ICU, nephrology, neurology consulted. Patient remains intubated and sedated. EEG pending. Echocardiogram showed LVEF 65 to 70%, normal RV size and systolic function. Course complicated with pneumothorax, status post right-sided chest tube. Brain CT did not show any acute process. Renal function improving. Subjective: Patient seen and examined at bedside. No acute events overnight. Pertinent positives and negatives as discussed above, a complete review of systems was performed and all other systems are negative. Vitals Signs Reviewed. General: Intubated and sedated Derm: warm, dry Head: atraumatic, normocephalic, symmetric Eyes: anicteric sclera, pupils equal round reactive to light, pinpoint pupils ENT: Nose and ears atraumatic Neck: No thyromegaly, supple Mouth: no lip lesion, mucus membranes moist Cardiovascular: S1S2 reg, tachycardic, no murmur, no edema Lungs: Bilateral rhonchi, mechanically ventilated Abdominal: soft, nondistended Ext: no gross muscle atrophy, no contractures Neuro: Sedated Psych: Unable to assess Data Reviewed Today: Pertinent Labs: WBC 14.3, hemoglobin 13.8, pH 7.61, pCO2 31, potassium 3, bicarb 32, creatinine 2.96, blood sugars range between 1 29-1 63, magnesium 1.9, phosphate 5. Imaging: Chest x-ray independently interpreted from this morning, shows right- sided chest tube, ET tube in place, no further evidence of pneumothorax, central line and NG tube in place as well. Assessment and Plan: Patient remains in medical ICU, prognosis guarded. [id number] cardiac arrest Acute anterior STEMI Cardiogenic versus hypovolemic shock, resolved Acute PE less likely Acute metabolic encephalopathy History of polysubstance abuse Seizure? Leukocytosis, reactive, improving High anion gap metabolic acidosis, resolved Metabolic alkalosis along with respiratory alkalosis Uremia, improving Nonoliguric, acute kidney injury, resolving Lactic acidosis, resolved Euthyroid sick syndrome Hypokalemia Hypertension -Discussed management with neurology, continue Vimpat 50 IV twice daily, on Keppra 500 IV every 12 hours, thiamine 250 IV 3 times daily -EEG pending -Bicarb drip discontinued this morning -Repeat blood gas and BMP -Potassium being repleted -ICU following, patient on IV Unasyn 1.5 g every 8 hours, as well as Cleviprex drip -Continue to wean sedation, currently on Versed and propofol -Off vasopressors -Cardiology and nephrology following DVT ppx: Subcu heparin Code status: Full code Anticipated discharge place: Pending clinical course Anticipated discharge time: Pending clinical course Objective - Vital Signs Vital signs: Vital Signs Temp 98.2 F 06/07/24 08:00 Pulse 107 H 06/07/24 11:00 Resp 15 06/07/24 11:00 BP 105/79 06/07/24 11:00 Pulse Ox 99 06/07/24 11:00 FiO2 50 06/07/24 11:00 Intake & Output 06/06/24 06/07/24 06/07/24 18:59 06:59 18:59 Intake Total 2148.938 2473.715 1170 Output Total 380 1165 375 Balance 0757.000 3325.715 795 Weight 62.8 kg 65.4 kg Intake: IV 1730 2040 1070 0.9% NS KVO 90 20 Ampicillin-Sulbactam 1.5 100 100 50 gm In Sodium Chloride 0.9 % 50 ml @ 100 mls/hr IVPB Q8HR [facility] Rx#:[id number] Dextrose 5% in Water 1, 900 000 ml @ 150 mls/hr IV . Q7H40M [facility] with Sodium Bicarb (1 Meq/ml) 150 ml Rx#:[id number] Dextrose 5% in Water 1, 1800 450 000 ml @ 150 mls/hr IV . Q7H40M [facility] with Sodium Bicarb (1 Meq/ml) 150 ml Rx#:[id number] Invasive Line 2 30 Potassium Chloride 20 meq 200 In Water For Injection 1 100ml.bag @ 50 mls/hr IVPB ONCE ONE Rx#: [id number] Sodium Chloride 0.45% 1, 300 000 ml @ 100 mls/hr IV . Q10H [facility] Rx#:[id number] Sodium Chloride 0.9% 1, 450 000 ml @ 150 mls/hr IV . Q6H40M [facility] Rx#:[id number] Thiamine 250 mg In Sodium 50 50 50 Chloride 0.9% 50 ml @ 100 mls/hr IVPB TID [facility] Rx#:[id number] Intake, IV Titration 418.938 433.715 100 Amount Clevidipine Butyrate 25 41.400 77.866 mg In Empty Bag 1 bag @ 1 MG/HR 2 mls/hr IV .Q24H [facility] Rx#:[id number] Midazolam HCl 200 mg In 78.633 Sodium Chloride 0.9% 60 ml @ 1 MG/HR 0.5 mls/hr IV .Q24H [facility] Rx#: [id number] Midazolam HCl 50 mg In 75.066 Sodium Chloride 0.9% 40 ml @ 1 MG/HR 1 mls/hr IV .Q24H [facility] Rx#:[id number] Norepinephrine 4 mg In 27.481 Sodium Chloride 0.9% 250 ml @ 0.03 MCG/KG/MIN 7. 518 mls/hr IV .Q24H [facility] Rx#:[id number] propofoL 1,000 mg In 228.227 277.216 100 Empty Bag 1 bag @ 60 MCG/ KG/MIN 23.678 mls/hr IV . Q4H14M [facility] Rx#:[id number] propofoL 1,000 mg In 46.764 Empty Bag 1 bag @ Titrate IV .Q0M [facility] Rx#: [id number] Output: Chest Tube Drainage 0 0 Chest Tube Right Lateral 0 0 Chest Gastric Drainage 350 Urine 380 815 375 Other: Voiding Method Indwelling Catheter Indwelling Catheter Indwelling Catheter # Bowel Movements 0 ABP, PAP, CO, CI - Last Documented Arterial Blood Pressure 118/52 - Labs CBC & Chem 7: 06/07/24 04:42 06/07/24 04:42 Labs: Abnormal Lab Results - Last 24 Hours (Table) 06/06/24 06/06/24 06/06/24 Range/Units 10:08 11:50 12:28 WBC (3.8-10.6) k/uL Neutrophils # (1.3-7.7) k/uL Lymphocytes # (1.0-4.8) k/uL ABG pH (7.35-7.45) ABG pCO2 (35-45) mmHg ABG pO2 (83-108) mmHg ABG HCO3 (21-25) mmol/L ABG Total CO2 25 H (19-24) mmol/L ABG O2 Saturation (94-97) % Potassium 3.0 L (3.5-5.1) mmol/L Carbon Dioxide (22-30) mmol/L BUN 51 H (9-20) mg/dL Creatinine 3.08 H (0.66-1.25) mg/dL Glucose 114 H (74-99) mg/dL POC Glucose (mg/dL) (70-110) mg/dL Calcium 7.8 L (8.4-10.2) mg/dL Phosphorus (2.5-4.5) mg/dL AST 1197 H (17-59) U/L ALT 375 H (4-49) U/L Creatine Kinase 69675 H* (55-170) U/L U Benzodiazepines Scrn Positive A (Negative) Urine Cocaine Screen Positive A (Negative) Hep C IgG Ab (Nonreactive) 06/06/24 06/06/24 06/06/24 Range/Units 12:28 12:28 12:29 WBC 17.7 H (3.8-10.6) k/uL Neutrophils # 16.1 H (1.3-7.7) k/uL Lymphocytes # 0.7 L (1.0-4.8) k/uL ABG pH (7.35-7.45) ABG pCO2 (35-45) mmHg ABG pO2 (83-108) mmHg ABG HCO3 (21-25) mmol/L ABG Total CO2 (19-24) mmol/L ABG O2 Saturation (94-97) % Potassium 3.0 L (3.5-5.1) mmol/L Carbon Dioxide (22-30) mmol/L BUN 51 H (9-20) mg/dL Creatinine 3.02 H (0.66-1.25) mg/dL Glucose 111 H (74-99) mg/dL POC Glucose (mg/dL) (70-110) mg/dL Calcium 8.0 L (8.4-10.2) mg/dL Phosphorus (2.5-4.5) mg/dL AST (17-59) U/L ALT (4-49) U/L Creatine Kinase (55-170) U/L U Benzodiazepines Scrn (Negative) Urine Cocaine Screen (Negative) Hep C IgG Ab Reactive A (Nonreactive) 06/06/24 06/07/24 06/07/24 Range/Units 17:47 01:16 01:17 WBC (3.8-10.6) k/uL Neutrophils # (1.3-7.7) k/uL Lymphocytes # (1.0-4.8) k/uL ABG pH (7.35-7.45) ABG pCO2 (35-45) mmHg ABG pO2 (83-108) mmHg ABG HCO3 (21-25) mmol/L ABG Total CO2 (19-24) mmol/L ABG O2 Saturation (94-97) % Potassium 2.9 L (3.5-5.1) mmol/L Carbon Dioxide (22-30) mmol/L BUN (9-20) mg/dL Creatinine (0.66-1.25) mg/dL Glucose (74-99) mg/dL POC Glucose (mg/dL) 129 H 163 H (70-110) mg/dL Calcium (8.4-10.2) mg/dL Phosphorus (2.5-4.5) mg/dL AST (17-59) U/L ALT (4-49) U/L Creatine Kinase (55-170) U/L U Benzodiazepines Scrn (Negative) Urine Cocaine Screen (Negative) Hep C IgG Ab (Nonreactive) 06/07/24 06/07/24 06/07/24 Range/Units 04:42 04:42 04:42 WBC 14.3 H (3.8-10.6) k/uL Neutrophils # 13.1 H (1.3-7.7) k/uL Lymphocytes # 0.7 L (1.0-4.8) k/uL ABG pH (7.35-7.45) ABG pCO2 (35-45) mmHg ABG pO2 (83-108) mmHg ABG HCO3 (21-25) mmol/L ABG Total CO2 (19-24) mmol/L ABG O2 Saturation (94-97) % Potassium 3.0 L (3.5-5.1) mmol/L Carbon Dioxide 32 H (22-30) mmol/L BUN 59 H (9-20) mg/dL Creatinine 2.96 H (0.66-1.25) mg/dL Glucose 149 H (74-99) mg/dL POC Glucose (mg/dL) (70-110) mg/dL Calcium 6.5 L (8.4-10.2) mg/dL Phosphorus 5.0 H (2.5-4.5) mg/dL AST (17-59) U/L ALT (4-49) U/L Creatine Kinase (55-170) U/L U Benzodiazepines Scrn (Negative) Urine Cocaine Screen (Negative) Hep C IgG Ab (Nonreactive) 06/07/24 06/07/24 Range/Units 05:24 06:24 WBC (3.8-10.6) k/uL Neutrophils # (1.3-7.7) k/uL Lymphocytes # (1.0-4.8) k/uL ABG pH 7.61 H* (7.35-7.45) ABG pCO2 31 L (35-45) mmHg ABG pO2 121 H (83-108) mmHg ABG HCO3 30 H (21-25) mmol/L ABG Total CO2 31 H (19-24) mmol/L ABG O2 Saturation 99.2 H (94-97) % Potassium (3.5-5.1) mmol/L Carbon Dioxide (22-30) mmol/L BUN (9-20) mg/dL Creatinine (0.66-1.25) mg/dL Glucose (74-99) mg/dL POC Glucose (mg/dL) 148 H (70-110) mg/dL Calcium (8.4-10.2) mg/dL Phosphorus (2.5-4.5) mg/dL AST (17-59) U/L ALT (4-49) U/L Creatine Kinase (55-170) U/L U Benzodiazepines Scrn (Negative) Urine Cocaine Screen (Negative) Hep C IgG Ab (Nonreactive)
--- NOTE | 2024-06-07 11:27 | P.PN ---
Subjective Progress Note Date: 06/07/24 This is a 64-year-old male patient was in [place] and the patient was about to get discharged. He has history of polysubstance abuse including cocaine, heroin alcoholism. The patient developed some mental status change and subsequently the became bradycardic and the apparently collapsed and subseq uently found to to be in cardiopulmonary arrest. The original rhythm information is not available. Please refer to the emergency notes. Apparently patient was found unresponsive and he stopped breathing and he collapsed. CPR was initiated by EMS. The patient was intubated on the route. Subsequently, CPR was continued in our emergency department. Initial EKG showed some ST segment elevation over the V1 and V2 leads. Based on that, the patient was taken immediately to the [facility] and underwent a cardiac catheterization that this showed essentially normal coronaries. The clinic pressures were also low. The patient was kept intubated and following that he was moved to the intensive care unit. At this point in time, the patient is intubated on mechanical ventilator. He is on propofol which is running at 60 mcg/kg/min is also on a Versed drip at 12 mg an hour. He is on assist-control mode of mechanical ventilation at rate of 18, tidal volume of 400, FiO2 50% with a PEEP of 5. Initial lactic acid level was 11.4 and dropped down to 7.7. Initial blood gases showed a pH of 7.06 with a pCO2 of 50 and pO2 more than 420. Subsequent blood gas showed a pH of 7.39 with a pCO2 of 39 and pO2 of 95 and this was verified to 50%. Chest x-ray showed no consolidation or airspace disease. The morning chest x-ray showed right-sided pneumothorax. Based on that, I inserted a 28 Russian chest tube into the right hemithorax and a pneumothorax was drained. Chest tube is currently in place and the patient is positive airleak. Hemodynamically, the patient has no pressors. He is slightly hypothermic and his most recent temperature is at 95.5 degrees. The white cell count of 13.5 wi th a hemoglobin 17.5 and a platelet count of 315. The patient has sustained acute kidney injury with a BUN of 41 with a creatinine of 3.6 and urine output is only a (an hour. Serum bicarb is at 14 with an anion gap of 28. Sodium is at 143. AST is 499, ALT is 171, troponin is at 0.191 and proBNP level is 18,300. TSH is at 9.2. UA showed 28 RBCs and 71 WBCs. CAT scan of the brain has not been done. Neurologically, the patient is not withdrawing to painful stimulation. No seizure activity. Pupils are round 2 mm in size, symmetrical. Reflexes are quite diminished in all 4 EXTR. He is breathing about the mechanical ventilator. 06/07/2024, the patient remains intubated on mechanical ventilator. The patient is sedated with a combination of propofol running at 65 mcg/kg/min and Versed drip at 15 mg an hour. Patient is also on a combination of Vimpat and Keppra. Some twitching of the lip was noted, suspected seizures, suspected anoxic encephalopathy and the patient is having an EEG done today. Neurology is on the case. No active twitching or body jerks is noted on clinical examination today. Meanwhile, the patient is still on the mechanical ventilator. The patient is on a pressure control mode of mechanical ventilation at rate of 12, pressure control of 20, FiO2 50% with a PEEP of 5. Chest x-ray from today shows no acute abnormalities. The right-sided chest tube is in place. There is intermittent air leak and there is no evidence of any pneumothorax. ET tube is in good location. The patient's blood gas from today shows a pH of 7.6 with a pCO2 of 31 and a pO2 of 121. Bicarb drip has been discontinued and the patient is currently on half-normal saline which is running at 100 cc an hour. The patient sustained an acute rhabdomyolysis. Cardiac catheterization was negative for any coronary abnormalities. Echocardiogram was also done that showed a preserved LV function without any significant valvular abnormalities. Ejection fraction was around 65%. CAT scan of the brain was done and it showed no acute abnormalities. Ultrasound of the kidneys showed no hydronephrosis. The blood work from today shows a white cell count of 14.3 with a hemoglobin 15.8 and a platelet count of 232. Sodium is at 140 with a potassium level of 3.0. BUN is 59 with a creatinine of 2.9 and the patient is producing urine output. Urine drug screen was positive for cocaine and benzodiazepine. Afebrile. No other significant events noted overnight. Neurology on the case. Estimated downtime was around 17 and later on 30 minutes during which the patient received CPR. As such, high likelihood for an underlying anoxic encephalopathy. Objective - Vital Signs Vital signs: Vital Signs Temp 98.2 F 06/07/24 08:00 Pulse 105 H 06/07/24 08:00 Resp 15 06/07/24 08:00 BP 128/70 06/07/24 07:00 Pulse Ox 100 06/07/24 08:00 FiO2 50 06/07/24 08:00 Intake & Output 06/06/24 06/07/24 06/07/24 18:59 06:59 18:59 Intake Total 2148.938 2473.715 580 Output Total 380 1165 240 Balance 6194.832 9414.715 340 Weight 62.8 kg 65.4 kg Intake: IV 1730 2040 580 0.9% NS KVO 90 30 Ampicillin-Sulbactam 1.5 100 100 50 gm In Sodium Chloride 0.9 % 50 ml @ 100 mls/hr IVPB Q8HR B[facility] Rx#:[id number] Dextrose 5% in Water 1, 900 000 ml @ 150 mls/hr IV . Q7H40M BEV with Sodium Bicarb (1 Meq/ml) 150 ml Rx#:[id number] Dextrose 5% in Water 1, 1800 450 000 ml @ 150 mls/hr IV . Q7H40M BEV with Sodium Bicarb (1 Meq/ml) 150 ml Rx#:[id number] Invasive Line 2 30 Sodium Chloride 0.9% 1, 450 000 ml @ 150 mls/hr IV . Q6H40M [facility] Rx#:[id number] Thiamine 250 mg In Sodium 50 50 50 Chloride 0.9% 50 ml @ 100 mls/hr IVPB TID BEV Rx#:[id number] Intake, IV Titration 418.938 433.715 Amount Clevidipine Butyrate 25 41.400 77.866 mg In Empty Bag 1 bag @ 1 MG/HR 2 mls/hr IV .Q24H [facility] Rx#:[id number] Midazolam HCl 200 mg In 78.633 Sodium Chloride 0.9% 60 ml @ 1 MG/HR 0.5 mls/hr IV .Q24H B[facility] Rx#: [id number] Midazolam HCl 50 mg In 75.066 Sodium Chloride 0.9% 40 ml @ 1 MG/HR 1 mls/hr IV .Q24H BEV Rx#:[id number] Norepinephrine 4 mg In 27.481 Sodium Chloride 0.9% 250 ml @ 0.03 MCG/KG/MIN 7. 518 mls/hr IV .Q24H ONE Rx#:[id number] propofoL 1,000 mg In 228.227 277.216 Empty Bag 1 bag @ 60 MCG/ KG/MIN 23.678 mls/hr IV . Q4H14M [facility] Rx#:[id number] propofoL 1,000 mg In 46.764 Empty Bag 1 bag @ Titrate IV .Q0M ONE Rx#: [id number] Output: Chest Tube Drainage 0 0 Chest Tube Right Lateral 0 0 Chest Gastric Drainage 350 Urine 380 815 240 Other: Voiding Method Indwelling Catheter Indwelling Catheter Indwelling Catheter # Bowel Movements 0 ABP, PAP, CO, CI - Last Documented Arterial Blood Pressure 135/56 - Exam General: Lying in bed and does not appear in acute distress. Remains on mechanical ventilator. Intubated and orogastric and orotracheal tube are both in place. Head exam was generally normal. There was no scleral icterus or corneal arcus. Mucous membranes were moist. Neck was supple and without jugular venous distension, thyromegaly, or carotid bruits. Carotids were easily palpable bilaterally. There was no adenopathy. The patient has a right IJ triple-lumen catheter in place. Lung: Breath sounds are equal and symmetrical the patient has a right-sided chest tube in place. Abdominal exam revealed normal bowel sounds. The abdomen was soft, non-tender, and without masses, organomegaly, or appreciable enlargement of the abdominal aorta. Examination of the extremities revealed easily palpable radial, femoral and pedal pulses. There was no cyanosis, clubbing or edema. The patient has an intraosseous line in his left lower extremity Examination of the skin revealed no evidence of significant rashes, suspicious appearing nevi or other concerning lesions. Neuro: Limited. Is on IV propofol high-dose as well as Versed maxed out Patient is comatose. Patient is breathing over the vent. Upon manually opening his eyes patient had twitching of his eyes but when the eyes are closed there is no twitching. The pupils are pinpoint round. Primary gaze is midline. Motor: Unable to assess because of his overall condition. But no withdrawaling to painful stimuli. no jerking of any extremities. No twitching any of the extremities. No spontaneous movement. Tone is decreased throughout. Reflex: 0-1 throughout. Plantars are mute b/l. - Labs CBC & Chem 7: 06/07/24 04:42 06/07/24 04:42 Labs: Abnormal Lab Results - Last 24 Hours (Table) 06/06/24 06/06/24 06/06/24 Range/Units 09:05 10:08 10:08 WBC (3.8-10.6) k/uL Neutrophils # (1.3-7.7) k/uL Lymphocytes # (1.0-4.8) k/uL ABG pH (7.35-7.45) ABG pCO2 (35-45) mmHg ABG pO2 (83-108) mmHg ABG HCO3 (21-25) mmol/L ABG Total CO2 (19-24) mmol/L ABG O2 Saturation (94-97) % Potassium (3.5-5.1) mmol/L BUN (9-20) mg/dL Creatinine (0.66-1.25) mg/dL Glucose (74-99) mg/dL POC Glucose (mg/dL) (70-110) mg/dL Plasma Lactic Acid Freedom 7.7 H* (0.7-2.0) mmol/L Calcium (8.4-10.2) mg/dL Phosphorus (2.5-4.5) mg/dL AST (17-59) U/L ALT (4-49) U/L Creatine Kinase (55-170) U/L Urine Protein 2+ H (Negative) Urine Blood Large H (Negative) Urine RBC 28 H (0-5) /hpf Urine WBC 71 H (0-5) /hpf Ur Squamous Epith Cells 8 H (0-4) /hpf Urine Bacteria Few H (None) /hpf Urine Mucus Few H (None) /hpf U Benzodiazepines Scrn Positive A (Negative) Urine Cocaine Screen Positive A (Negative) 06/06/24 06/06/24 06/06/24 Range/Units 11:50 12:28 12:28 WBC (3.8-10.6) k/uL Neutrophils # (1.3-7.7) k/uL Lymphocytes # (1.0-4.8) k/uL ABG pH (7.35-7.45) ABG pCO2 (35-45) mmHg ABG pO2 (83-108) mmHg ABG HCO3 (21-25) mmol/L ABG Total CO2 25 H (19-24) mmol/L ABG O2 Saturation (94-97) % Potassium 3.0 L 3.0 L (3.5-5.1) mmol/L BUN 51 H 51 H (9-20) mg/dL Creatinine 3.08 H 3.02 H (0.66-1.25) mg/dL Glucose 114 H 111 H (74-99) mg/dL POC Glucose (mg/dL) (70-110) mg/dL Plasma Lactic Acid Freedom (0.7-2.0) mmol/L Calcium 7.8 L 8.0 L (8.4-10.2) mg/dL Phosphorus (2.5-4.5) mg/dL AST 1197 H (17-59) U/L ALT 375 H (4-49) U/L Creatine Kinase 79659 H* (55-170) U/L Urine Protein (Negative) Urine Blood (Negative) Urine RBC (0-5) /hpf Urine WBC (0-5) /hpf Ur Squamous Epith Cells (0-4) /hpf Urine Bacteria (None) /hpf Urine Mucus (None) /hpf U Benzodiazepines Scrn (Negative) Urine Cocaine Screen (Negative) 06/06/24 06/06/24 06/07/24 Range/Units 12:28 17:47 01:16 WBC 17.7 H (3.8-10.6) k/uL Neutrophils # 16.1 H (1.3-7.7) k/uL Lymphocytes # 0.7 L (1.0-4.8) k/uL ABG pH (7.35-7.45) ABG pCO2 (35-45) mmHg ABG pO2 (83-108) mmHg ABG HCO3 (21-25) mmol/L ABG Total CO2 (19-24) mmol/L ABG O2 Saturation (94-97) % Potassium (3.5-5.1) mmol/L BUN (9-20) mg/dL Creatinine (0.66-1.25) mg/dL Glucose (74-99) mg/dL POC Glucose (mg/dL) 129 H 163 H (70-110) mg/dL Plasma Lactic Acid Freedom (0.7-2.0) mmol/L Calcium (8.4-10.2) mg/dL Phosphorus (2.5-4.5) mg/dL AST (17-59) U/L ALT (4-49) U/L Creatine Kinase (55-170) U/L Urine Protein (Negative) Urine Blood (Negative) Urine RBC (0-5) /hpf Urine WBC (0-5) /hpf Ur Squamous Epith Cells (0-4) /hpf Urine Bacteria (None) /hpf Urine Mucus (None) /hpf U Benzodiazepines Scrn (Negative) Urine Cocaine Screen (Negative) 06/07/24 06/07/24 06/07/24 Range/Units 01:17 04:42 04:42 WBC 14.3 H (3.8-10.6) k/uL Neutrophils # 13.1 H (1.3-7.7) k/uL Lymphocytes # 0.7 L (1.0-4.8) k/uL ABG pH (7.35-7.45) ABG pCO2 (35-45) mmHg ABG pO2 (83-108) mmHg ABG HCO3 (21-25) mmol/L ABG Total CO2 (19-24) mmol/L ABG O2 Saturation (94-97) % Potassium 2.9 L (3.5-5.1) mmol/L BUN (9-20) mg/dL Creatinine (0.66-1.25) mg/dL Glucose (74-99) mg/dL POC Glucose (mg/dL) (70-110) mg/dL Plasma Lactic Acid Freedom (0.7-2.0) mmol/L Calcium (8.4-10.2) mg/dL Phosphorus 5.0 H (2.5-4.5) mg/dL AST (17-59) U/L ALT (4-49) U/L Creatine Kinase (55-170) U/L Urine Protein (Negative) Urine Blood (Negative) Urine RBC (0-5) /hpf Urine WBC (0-5) /hpf Ur Squamous Epith Cells (0-4) /hpf Urine Bacteria (None) /hpf Urine Mucus (None) /hpf U Benzodiazepines Scrn (Negative) Urine Cocaine Screen (Negative) 06/07/24 06/07/24 Range/Units 05:24 06:24 WBC (3.8-10.6) k/uL Neutrophils # (1.3-7.7) k/uL Lymphocytes # (1.0-4.8) k/uL ABG pH 7.61 H* (7.35-7.45) ABG pCO2 31 L (35-45) mmHg ABG pO2 121 H (83-108) mmHg ABG HCO3 30 H (21-25) mmol/L ABG Total CO2 31 H (19-24) mmol/L ABG O2 Saturation 99.2 H (94-97) % Potassium (3.5-5.1) mmol/L BUN (9-20) mg/dL Creatinine (0.66-1.25) mg/dL Glucose (74-99) mg/dL POC Glucose (mg/dL) 148 H (70-110) mg/dL Plasma Lactic Acid Freedom (0.7-2.0) mmol/L Calcium (8.4-10.2) mg/dL Phosphorus (2.5-4.5) mg/dL AST (17-59) U/L ALT (4-49) U/L Creatine Kinase (55-170) U/L Urine Protein (Negative) Urine Blood (Negative) Urine RBC (0-5) /hpf Urine WBC (0-5) /hpf Ur Squamous Epith Cells (0-4) /hpf Urine Bacteria (None) /hpf Urine Mucus (None) /hpf U Benzodiazepines Scrn (Negative) Urine Cocaine Screen (Negative) Assessment and Plan Plan: Acute cardiopulmonary arrest. Exact cause is not clear. The estimated downtime is still to be somewhat prolonged probably in the order of 20 minutes. This could have been related to an acute drug overdose as the patient had to stop breathing and subsequently went into cardiopulmonary arrest. Information regarding the downtime and initial cardiac rhythm is unavailable at this point in time. Patient was resuscitated, intubated in the field and there is return of the spontaneous blood pressure and hemodynamics. Currently on no pressors. Intubated on the mechanical ventilator. ST segment elevations with normal coronaries based on the coronary angiogram, echocardiogram was completed and the patient has a normal LV function. Acute unresponsiveness, postcardiac arrest and the patient had a negative CAT scan of the brain. Acute kidney injury, creatinine is stable and the patient is producing urine output. No evidence of any hydronephrosis Acute lactic acidosis secondary to above, improving, please refer to the most recent blood gas Acute respiratory failure, nonhypoxic, hypercapnic, currently intubated on mechanical ventilator Right-sided pneumothorax could be iatrogenic secondary to line insertion as the patient had right IJ triple-lumen catheter inserted in the emergency. Could be also related to CPR. Right-sided chest tube was inserted with reexpansion of the right lung and there is positive air leak, and there is adequate expansion of the right lung Polysubstance abuse including cocaine, heroin and alcoholism Unresponsiveness, currently on a combination of propofol and Versed. Consider underlying possibility of hypoxic encephalopathy., Awaiting EEG regarding possibility of underlying seizure and the patient is currently on a combination of Keppra and Vimpat Acute rhabdomyolysis Abnormal LFTs could be related to alcoholism. Plan Continue ventilator support W patient is currently on pressure control mode of mechanical ventilation Right-sided chest tube has been inserted, or pneumothorax recovered Cover the patient empirically with IV Unasyn Continue IV fluids with half-normal saline at rate of 100 cc an hour Obtain an echocardiogram, preserved LV function Obtain a CAT scan of the brain, within normal limits EEG today No need for anticoagulation for now. Possibility of pulmonary embolism extremely low. The patient is oxygenating normally Avoid any hyperthermia Monitor CPK Cover the patient on a combination of propofol and Versed for now Neurology consultation Cardiology consultation Nephrology consultation Ultrasound of the kidneys, shows no hydronephrosis Monitor LFTs Lactic acid level is improving Condition is critical and will continue to follow make further recommendations based on the progress. Evaluation was done more than 30 minutes excluding time to do any procedures. Time with Patient: Greater than 30
--- NOTE | 2024-06-07 11:56 | P.PN ---
Subjective Patient is seen for follow-up for acute kidney injury. He remains on the vent. FiO2 is at 50%. Urine drug screen [place] [address] Blood pressure is much improved. Patient was started on Cleviprex drip. It is down to 4 mg/h. Serum creatinine at 2.9. Acidosis has improved. Objective - Vital Signs Vital signs: Vital Signs Temp 98.2 F 06/07/24 08:00 Pulse 107 H 06/07/24 11:00 Resp 15 06/07/24 11:00 BP 105/79 06/07/24 11:00 Pulse Ox 99 06/07/24 11:00 FiO2 50 06/07/24 11:00 Intake & Output 06/06/24 06/07/24 06/07/24 18:59 06:59 18:59 Intake Total 2148.938 2473.715 1170 Output Total 380 1165 375 Balance 4068.330 9111.715 795 Weight 62.8 kg 65.4 kg Intake: IV 1730 2040 1070 0.9% NS KVO 90 20 Ampicillin-Sulbactam 1.5 100 100 50 gm In Sodium Chloride 0.9 % 50 ml @ 100 mls/hr IVPB Q8HR [facility] Rx#:[id number] Dextrose 5% in Water 1, 900 000 ml @ 150 mls/hr IV . Q7H40M BEV with Sodium Bicarb (1 Meq/ml) 150 ml Rx#:[id number] Dextrose 5% in Water 1, 1800 450 000 ml @ 150 mls/hr IV . Q7H40M BEV with Sodium Bicarb (1 Meq/ml) 150 ml Rx#:[id number] Invasive Line 2 30 Potassium Chloride 20 meq 200 In Water For Injection 1 100ml.bag @ 50 mls/hr IVPB ONCE ONE Rx#: [id number] Sodium Chloride 0.45% 1, 300 000 ml @ 100 mls/hr IV . Q10H [facility] Rx#:[id number] Sodium Chloride 0.9% 1, 450 000 ml @ 150 mls/hr IV . Q6H40M [facility] Rx#:[id number] Thiamine 250 mg In Sodium 50 50 50 Chloride 0.9% 50 ml @ 100 mls/hr IVPB TID [facility] Rx#:[id number] Intake, IV Titration 418.938 433.715 100 Amount Clevidipine Butyrate 25 41.400 77.866 mg In Empty Bag 1 bag @ 1 MG/HR 2 mls/hr IV .Q24H [facility] Rx#:[id number] Midazolam HCl 200 mg In 78.633 Sodium Chloride 0.9% 60 ml @ 1 MG/HR 0.5 mls/hr IV .Q24H [facility] Rx#: [id number] Midazolam HCl 50 mg In 75.066 Sodium Chloride 0.9% 40 ml @ 1 MG/HR 1 mls/hr IV .Q24H [facility] Rx#:[id number] Norepinephrine 4 mg In 27.481 Sodium Chloride 0.9% 250 ml @ 0.03 MCG/KG/MIN 7. 518 mls/hr IV .Q24H ONE Rx#:[id number] propofoL 1,000 mg In 228.227 277.216 100 Empty Bag 1 bag @ 60 MCG/ KG/MIN 23.678 mls/hr IV . Q4H14M [facility] Rx#:[id number] propofoL 1,000 mg In 46.764 Empty Bag 1 bag @ Titrate IV .Q0M ONE Rx#: [id number] Output: Chest Tube Drainage 0 0 Chest Tube Right Lateral 0 0 Chest Gastric Drainage 350 Urine 380 815 375 Other: Voiding Method Indwelling Catheter Indwelling Catheter Indwelling Catheter # Bowel Movements 0 ABP, PAP, CO, CI - Last Documented Arterial Blood Pressure 118/52 - Exam Patient is sedated and on the vent. Examination of the heart S1 and S2 Examination of the lungs bilateral breath sounds are heard Abdomen is soft nontender Examination of lower extremities shows chronic skin changes no significant edema noted. [employer] exam cannot be performed - Labs CBC & Chem 7: 06/07/24 04:42 06/07/24 04:42 Labs: Abnormal Lab Results - Last 24 Hours (Table) 06/06/24 06/06/24 06/06/24 Range/Units 10:08 11:50 12:28 WBC (3.8-10.6) k/uL Neutrophils # (1.3-7.7) k/uL Lymphocytes # (1.0-4.8) k/uL ABG pH (7.35-7.45) ABG pCO2 (35-45) mmHg ABG pO2 (83-108) mmHg ABG HCO3 (21-25) mmol/L ABG Total CO2 25 H (19-24) mmol/L ABG O2 Saturation (94-97) % Potassium 3.0 L (3.5-5.1) mmol/L Carbon Dioxide (22-30) mmol/L BUN 51 H (9-20) mg/dL Creatinine 3.08 H (0.66-1.25) mg/dL Glucose 114 H (74-99) mg/dL POC Glucose (mg/dL) (70-110) mg/dL Calcium 7.8 L (8.4-10.2) mg/dL Phosphorus (2.5-4.5) mg/dL AST 1197 H (17-59) U/L ALT 375 H (4-49) U/L Creatine Kinase 00658 H* (55-170) U/L U Benzodiazepines Scrn Positive A (Negative) Urine Cocaine Screen Positive A (Negative) Hep Bs Antibody (Negative) Hep C IgG Ab (Nonreactive) 06/06/24 06/06/24 06/06/24 Range/Units 12:28 12:28 12:29 WBC 17.7 H (3.8-10.6) k/uL Neutrophils # 16.1 H (1.3-7.7) k/uL Lymphocytes # 0.7 L (1.0-4.8) k/uL ABG pH (7.35-7.45) ABG pCO2 (35-45) mmHg ABG pO2 (83-108) mmHg ABG HCO3 (21-25) mmol/L ABG Total CO2 (19-24) mmol/L ABG O2 Saturation (94-97) % Potassium 3.0 L (3.5-5.1) mmol/L Carbon Dioxide (22-30) mmol/L BUN 51 H (9-20) mg/dL Creatinine 3.02 H (0.66-1.25) mg/dL Glucose 111 H (74-99) mg/dL POC Glucose (mg/dL) (70-110) mg/dL Calcium 8.0 L (8.4-10.2) mg/dL Phosphorus (2.5-4.5) mg/dL AST (17-59) U/L ALT (4-49) U/L Creatine Kinase (55-170) U/L U Benzodiazepines Scrn (Negative) Urine Cocaine Screen (Negative) Hep Bs Antibody A (Negative) Hep C IgG Ab Reactive A (Nonreactive) 06/06/24 06/07/24 06/07/24 Range/Units 17:47 01:16 01:17 WBC (3.8-10.6) k/uL Neutrophils # (1.3-7.7) k/uL Lymphocytes # (1.0-4.8) k/uL ABG pH (7.35-7.45) ABG pCO2 (35-45) mmHg ABG pO2 (83-108) mmHg ABG HCO3 (21-25) mmol/L ABG Total CO2 (19-24) mmol/L ABG O2 Saturation (94-97) % Potassium 2.9 L (3.5-5.1) mmol/L Carbon Dioxide (22-30) mmol/L BUN (9-20) mg/dL Creatinine (0.66-1.25) mg/dL Glucose (74-99) mg/dL POC Glucose (mg/dL) 129 H 163 H (70-110) mg/dL Calcium (8.4-10.2) mg/dL Phosphorus (2.5-4.5) mg/dL AST (17-59) U/L ALT (4-49) U/L Creatine Kinase (55-170) U/L U Benzodiazepines Scrn (Negative) Urine Cocaine Screen (Negative) Hep Bs Antibody (Negative) Hep C IgG Ab (Nonreactive) 06/07/24 06/07/24 06/07/24 Range/Units 04:42 04:42 04:42 WBC 14.3 H (3.8-10.6) k/uL Neutrophils # 13.1 H (1.3-7.7) k/uL Lymphocytes # 0.7 L (1.0-4.8) k/uL ABG pH (7.35-7.45) ABG pCO2 (35-45) mmHg ABG pO2 (83-108) mmHg ABG HCO3 (21-25) mmol/L ABG Total CO2 (19-24) mmol/L ABG O2 Saturation (94-97) % Potassium 3.0 L (3.5-5.1) mmol/L Carbon Dioxide 32 H (22-30) mmol/L BUN 59 H (9-20) mg/dL Creatinine 2.96 H (0.66-1.25) mg/dL Glucose 149 H (74-99) mg/dL POC Glucose (mg/dL) (70-110) mg/dL Calcium 6.5 L (8.4-10.2) mg/dL Phosphorus 5.0 H (2.5-4.5) mg/dL AST (17-59) U/L ALT (4-49) U/L Creatine Kinase (55-170) U/L U Benzodiazepines Scrn (Negative) Urine Cocaine Screen (Negative) Hep Bs Antibody (Negative) Hep C IgG Ab (Nonreactive) 06/07/24 06/07/24 Range/Units 05:24 06:24 WBC (3.8-10.6) k/uL Neutrophils # (1.3-7.7) k/uL Lymphocytes # (1.0-4.8) k/uL ABG pH 7.61 H* (7.35-7.45) ABG pCO2 31 L (35-45) mmHg ABG pO2 121 H (83-108) mmHg ABG HCO3 30 H (21-25) mmol/L ABG Total CO2 31 H (19-24) mmol/L ABG O2 Saturation 99.2 H (94-97) % Potassium (3.5-5.1) mmol/L Carbon Dioxide (22-30) mmol/L BUN (9-20) mg/dL Creatinine (0.66-1.25) mg/dL Glucose (74-99) mg/dL POC Glucose (mg/dL) 148 H (70-110) mg/dL Calcium (8.4-10.2) mg/dL Phosphorus (2.5-4.5) mg/dL AST (17-59) U/L ALT (4-49) U/L Creatine Kinase (55-170) U/L U Benzodiazepines Scrn (Negative) Urine Cocaine Screen (Negative) Hep Bs Antibody (Negative) Hep C IgG Ab (Nonreactive) Assessment and Plan Assessment: 1. Acute kidney injury ATN, oliguric initially, currently nonoliguric with improved urine output. Etiology is hypotension/cardiac arrest and rhabdomyolysis. 2. Microscopic hematuria noted on UA,? Traumatic. Consider underlying GN if it remains persistent. Patient has underlying history of hepatitis 3. History of polysubstance abuse including cocaine. Drug screen did come back positive for cocaine. 4. Acute MS status post cath with patent coronary arteries. Most likely related to cocaine abuse. 5. Status postcardiac arrest 6. Anion gap metabolic acidosis secondary to lactic acidosis and acute kidney injury 7. Hyperphosphatemia associated with acute kidney injury and rhabdomyolysis 8. Hypokalemia associated with IV bicarb Plan: Agree with discontinuation of IV bicarb. Continue with half-normal saline. Repeat labs in a.m. Continue to avoid nephrotoxic agents. Repeat CK
[2024-06-07] MEDS: POTASSIUM CHLORIDE 20 MEQ in WATER FOR INJECTION 1 100ML.BAG IVPB ONE (12:59)
[2024-06-07 13:02] LABS: Glucose,Whole Blood 103 mg/dL (70-110)
[2024-06-07 13:05] LABS: Hepatitis B Surface Antigen Nonreactive (Nonreactive)
--- NOTE | 2024-06-07 13:40 | EEG ---
ELECTROENCEPHALOGRAM REPORT CLINICAL HISTORY: This is a 64-year-old gentleman who presents because of outside the hospital cardiac arrest for his altered mental status as well as eye fluttering. The video EEG is obtained to evaluate for seizure epileptiform activity. RELEVANT MEDICATIONS: 1. Keppra. 2. Vimpat. 3. IV Versed. 4. IV propofol. EEG TYPE: A routine 21-channel EEG with video using the 10/20 electrode placement system. DESCRIPTION: The patient is intubated on a ventilator. The background consists of [id number] voltage of 5 to 6 hertz activity intermixed with delta and sometimes the background consists of diffuse nonrhythmic delta activity. There is no physiological stage 2 sleep architecture. There is no focal slowing. INTERICTAL AND ICTAL: None. ACTIVATION PROCEDURE: Photic stimulation and hyperventilation are not performed. CLINICAL INTERPRETATION: This is an abnormal routine EEG. The background slowing is suggestive of moderate-to- severe encephalopathy. There are no focal slowing, epileptiform discharge, or seizure on the EEG. Clinical correlation is recommended. ROLF / RADHA: [id number] / RL
[2024-06-07 15:45] LABS: ABG Base Excess 9.5 mmol/L; ABG HCO3 33 mmol/L (21-25); ABG Oxygen Saturation 98.9 % (94-97); ABG PCO2 40 mmHg (35-45); ABG PH 7.53 (7.35-7.45); ABG PO2 122 mmHg (83-108); ABG TCO2 34 mmol/L (19-24); Allen Test Performed? Yes
[2024-06-07 16:53] LABS: African American GFR (CKD) 24 (>60 ml/min/1.73 sqM); Anion Gap 3 mmol/L; Blood Urea Nitrogen 57 mg/dL (9-20); Carbon Dioxide 35 mmol/L (22-30); Chloride 102 mmol/L (98-107); Glucose 119 mg/dL (74-99); Magnesium 1.8 mg/dL (1.6-2.3); Non-African American GFR(CKD) 21 (>60 ml/min/1.73 sqM); Potassium 3.9 mmol/L (3.5-5.1); Sodium 140 mmol/L (137-145)
[2024-06-07 16:57] LABS: Calcium 6.2 mg/dL (8.4-10.2)
[2024-06-07 17:41] LABS: Glucose,Whole Blood 101 mg/dL (70-110)
[2024-06-07] MEDS: CALCIUM GLUCONATE IN NACL 2 GM in SALINE 1 100ML.BAG IVPB ONE (18:20)
--- NOTE | 2024-06-07 18:30 | P.PN ---
Subjective Progress Note Date: 06/07/24 Progress note June 07, 2024 Patient is maintained on ventilator support. He was briefly on pressors at the time of admission but since then he has been hypotensive currently requiring Cleviprex drip. His echocardiogram showed preserved LV size and systolic function with severe left nuclear hypertrophy, RV appeared intact with no significant signs of pulmonary hypertension, therefore the clinical suspicion for pulm embolism for is less likely. Patient is making appropriate urine. Made 1 L urine yesterday but creatinine is at 3. HISTORY OF PRESENTING ILLNESS 64-year-old male [facility] for being found unresponsive. He was intubated in the field. He had [id number] cardiac arrest the details of which are not available for me to review. Unknown downtime. In ER he was noticed to be bradycardic with his ECG showing marked ST elevations in lead aVR and V1 In the ER he was reintubated. His initial labs showed sodium 143, potassium 4.2, bicarb 14, BUN 41 creatinine 3.6, significantly elevated lactate of 11.4, phosphorous 14.4, troponin 0.19, NT proBNP 18,000 His chest x-ray did not show any signs of pulmonary congestion. He has a right IJ central line and NG-tube in place. Because of his presentation of cardiac arrest with ECG changes STEMI was activated. PHYSICAL EXAMINATION Vital signs reviewed. On propofol and norepinephrine Head: Normocephalic. Eyes: Sclerae nonicteric. Neck: Brisk carotid upstroke Lungs: ET tube in place, on vent support Heart: Regular rate and rhythm, S1-S2, no S3, no murmur or rub. Abdomen: Soft nontender, positive bowel sounds. Extremities: No edema, intact distal pulses. Neuro: Under sedation. ASSESSMENT [id number] cardiac arrest Acute hypoxic respiratory failure requiring vent support Severe concentric LVH, JAYASHREE Metabolic encephalopathy Lactic acidosis Polysubstance abuse PLAN Continue Cleviprex drip. Start hydralazine 50 mg 4 times daily, titrate down Cleviprex drip to keep SBP less than 140 mmHg, Avoid beta-blockers because of concerns of polysubstance abuse Objective - Vital Signs Vital signs: Vital Signs Temp 99.2 F 06/07/24 16:00 Pulse 107 H 06/07/24 18:00 Resp 14 06/07/24 18:00 BP 119/67 06/07/24 18:00 Pulse Ox 100 06/07/24 18:00 FiO2 50 06/07/24 18:00 Intake & Output 06/06/24 06/07/24 06/07/24 18:59 06:59 18:59 Intake Total 2148.938 2473.715 2693.127 Output Total 380 1165 998 Balance 4388.898 6888.715 1695.127 Weight 62.8 kg 65.4 kg Intake: IV 1730 2040 2130 0.9% NS KVO 90 80 Ampicillin-Sulbactam 1.5 100 100 100 gm In Sodium Chloride 0.9 % 50 ml @ 100 mls/hr IVPB Q8HR [facility] Rx#:[id number] Calcium Gluconate in NaCl 100 2 gm In Saline 1 100ml. bag @ 100 mls/hr IVPB ONCE ONE Rx#:[id number] Dextrose 5% in Water 1, 900 000 ml @ 150 mls/hr IV . Q7H40M [facility] with Sodium Bicarb (1 Meq/ml) 150 ml Rx#:[id number] Dextrose 5% in Water 1, 1800 450 000 ml @ 150 mls/hr IV . Q7H40M [facility] with Sodium Bicarb (1 Meq/ml) 150 ml Rx#:[id number] Invasive Line 2 30 Potassium Chloride 20 meq 300 In Water For Injection 1 100ml.bag @ 50 mls/hr IVPB ONCE ONE Rx#: [id number] Sodium Chloride 0.45% 1, 1000 000 ml @ 100 mls/hr IV . Q10H [facility] Rx#:[id number] Sodium Chloride 0.9% 1, 450 000 ml @ 150 mls/hr IV . Q6H40M [facility] Rx#:[id number] Thiamine 250 mg In Sodium 50 50 100 Chloride 0.9% 50 ml @ 100 mls/hr IVPB TID [facility] Rx#:[id number] Intake, IV Titration 418.938 433.715 453.127 Amount Clevidipine Butyrate 25 41.400 77.866 81.333 mg In Empty Bag 1 bag @ 1 MG/HR 2 mls/hr IV .Q24H [facility] Rx#:[id number] Midazolam HCl 200 mg In 78.633 95.658 Sodium Chloride 0.9% 60 ml @ 1 MG/HR 0.5 mls/hr IV .Q24H [facility] Rx#: [id number] Midazolam HCl 50 mg In 75.066 Sodium Chloride 0.9% 40 ml @ 1 MG/HR 1 mls/hr IV .Q24H [facility] Rx#:[id number] Norepinephrine 4 mg In 27.481 Sodium Chloride 0.9% 250 ml @ 0.03 MCG/KG/MIN 7. 518 mls/hr IV .Q24H ONE Rx#:[id number] propofoL 1,000 mg In 228.227 277.216 276.136 Empty Bag 1 bag @ 60 MCG/ KG/MIN 23.678 mls/hr IV . Q4H14M [facility] Rx#:[id number] propofoL 1,000 mg In 46.764 Empty Bag 1 bag @ Titrate IV .Q0M ONE Rx#: [id number] Tube Feeding 50 Other 60 Output: Chest Tube Drainage 0 0 3 Chest Tube Right Lateral 0 0 3 Chest Gastric Drainage 350 Urine 380 815 995 Other: Voiding Method Indwelling Catheter Indwelling Catheter Indwelling Catheter # Bowel Movements 0 0 ABP, PAP, CO, CI - Last Documented Arterial Blood Pressure 139/52 - Labs CBC & Chem 7: 06/07/24 04:42 06/07/24 16:21 Labs: Abnormal Lab Results - Last 24 Hours (Table) 06/06/24 06/06/24 06/07/24 Range/Units 10:08 12:29 01:16 WBC (3.8-10.6) k/uL Neutrophils # (1.3-7.7) k/uL Lymphocytes # (1.0-4.8) k/uL ABG pH (7.35-7.45) ABG pCO2 (35-45) mmHg ABG pO2 (83-108) mmHg ABG HCO3 (21-25) mmol/L ABG Total CO2 (19-24) mmol/L ABG O2 Saturation (94-97) % Potassium (3.5-5.1) mmol/L Carbon Dioxide (22-30) mmol/L BUN (9-20) mg/dL Creatinine (0.66-1.25) mg/dL Glucose (74-99) mg/dL POC Glucose (mg/dL) 163 H (70-110) mg/dL Calcium (8.4-10.2) mg/dL Phosphorus (2.5-4.5) mg/dL U Benzodiazepines Scrn Positive A (Negative) Urine Cocaine Screen Positive A (Negative) Hep Bs Antibody A (Negative) Hep C IgG Ab Reactive A (Nonreactive) 06/07/24 06/07/24 06/07/24 Range/Units 01:17 04:42 04:42 WBC 14.3 H (3.8-10.6) k/uL Neutrophils # 13.1 H (1.3-7.7) k/uL Lymphocytes # 0.7 L (1.0-4.8) k/uL ABG pH (7.35-7.45) ABG pCO2 (35-45) mmHg ABG pO2 (83-108) mmHg ABG HCO3 (21-25) mmol/L ABG Total CO2 (19-24) mmol/L ABG O2 Saturation (94-97) % Potassium 2.9 L (3.5-5.1) mmol/L Carbon Dioxide (22-30) mmol/L BUN (9-20) mg/dL Creatinine (0.66-1.25) mg/dL Glucose (74-99) mg/dL POC Glucose (mg/dL) (70-110) mg/dL Calcium (8.4-10.2) mg/dL Phosphorus 5.0 H (2.5-4.5) mg/dL U Benzodiazepines Scrn (Negative) Urine Cocaine Screen (Negative) Hep Bs Antibody (Negative) Hep C IgG Ab (Nonreactive) 06/07/24 06/07/24 06/07/24 Range/Units 04:42 05:24 06:24 WBC (3.8-10.6) k/uL Neutrophils # (1.3-7.7) k/uL Lymphocytes # (1.0-4.8) k/uL ABG pH 7.61 H* (7.35-7.45) ABG pCO2 31 L (35-45) mmHg ABG pO2 121 H (83-108) mmHg ABG HCO3 30 H (21-25) mmol/L ABG Total CO2 31 H (19-24) mmol/L ABG O2 Saturation 99.2 H (94-97) % Potassium 3.0 L (3.5-5.1) mmol/L Carbon Dioxide 32 H (22-30) mmol/L BUN 59 H (9-20) mg/dL Creatinine 2.96 H (0.66-1.25) mg/dL Glucose 149 H (74-99) mg/dL POC Glucose (mg/dL) 148 H (70-110) mg/dL Calcium 6.5 L (8.4-10.2) mg/dL Phosphorus (2.5-4.5) mg/dL U Benzodiazepines Scrn (Negative) Urine Cocaine Screen (Negative) Hep Bs Antibody (Negative) Hep C IgG Ab (Nonreactive) 06/07/24 06/07/24 Range/Units 15:42 16:21 WBC (3.8-10.6) k/uL Neutrophils # (1.3-7.7) k/uL Lymphocytes # (1.0-4.8) k/uL ABG pH 7.53 H (7.35-7.45) ABG pCO2 (35-45) mmHg ABG pO2 122 H (83-108) mmHg ABG HCO3 33 H (21-25) mmol/L ABG Total CO2 34 H (19-24) mmol/L ABG O2 Saturation 98.9 H (94-97) % Potassium (3.5-5.1) mmol/L Carbon Dioxide 35 H (22-30) mmol/L BUN 57 H (9-20) mg/dL Creatinine 3.00 H (0.66-1.25) mg/dL Glucose 119 H (74-99) mg/dL POC Glucose (mg/dL) (70-110) mg/dL Calcium 6.2 L* (8.4-10.2) mg/dL Phosphorus (2.5-4.5) mg/dL U Benzodiazepines Scrn (Negative) Urine Cocaine Screen (Negative) Hep Bs Antibody (Negative) Hep C IgG Ab (Nonreactive) Microbiology - Last 24 Hours (Table) 06/06/24 05:48 Gram Stain - Preliminary Sputum Sputum Culture - Preliminary
[2024-06-07] MEDS: hydrALAZINE HCL 50 MG TAB PO SCH (19:25)
[2024-06-08 00:20] LABS: Glucose,Whole Blood 133 mg/dL (70-110)
[2024-06-08 04:51] LABS: Hepatitis BE Antibody Nonreactive (Nonreactive); Hepatitis BE Antigen Nonreactive (Nonreactive)
[2024-06-08 05:25] LABS: Basophils % (A) 0 %; Eosinophils # (A) 0.1 k/uL (0-0.7); Eosinophils % (A) 1 %; HCT 41.2 % (39.0-53.0); HGB 13.4 gm/dL (13.0-17.5); Lymphocytes # (A) 0.7 k/uL (1.0-4.8); Lymphocytes % (A) 6 %; MCH 31.4 pg (25.0-35.0); MCHC 32.5 g/dL (31.0-37.0); MCV 96.6 fL (80.0-100.0); Monocytes # (A) 0.6 k/uL (0-1.0); Monocytes % (A) 5 %; Neutrophils # (A) 10.9 k/uL (1.3-7.7); Neutrophils % (A) 88 %; Platelet Count 211 k/uL (150-450); RBC 4.27 m/uL (4.30-5.90); RDW 12.5 % (11.5-15.5); WBC 12.4 k/uL (3.8-10.6)
[2024-06-08 05:41] LABS: ABG Base Excess 6.9 mmol/L; ABG HCO3 31 mmol/L (21-25); ABG Oxygen Saturation 98.8 % (94-97); ABG PCO2 39 mmHg (35-45); ABG PO2 116 mmHg (83-108); ABG TCO2 32 mmol/L (19-24); Allen Test Performed? Yes
[2024-06-08 05:48] LABS: African American GFR (CKD) 23 (>60 ml/min/1.73 sqM); Albumin 2.8 g/dL (3.5-5.0); Alkaline Phosphatase 57 U/L (38-126); Anion Gap 4 mmol/L; Blood Urea Nitrogen 54 mg/dL (9-20); Calcium 6.9 mg/dL (8.4-10.2); Carbon Dioxide 33 mmol/L (22-30); Chloride 103 mmol/L (98-107); Glucose 135 mg/dL (74-99); Magnesium 1.9 mg/dL (1.6-2.3); Non-African American GFR(CKD) 20 (>60 ml/min/1.73 sqM); Potassium 3.6 mmol/L (3.5-5.1); Sodium 140 mmol/L (137-145); Total Bilirubin 0.9 mg/dL (0.2-1.3)
[2024-06-08 05:54] LABS: AST 1151 U/L (17-59)
[2024-06-08 05:55] LABS: ALT 818 U/L (4-49)
[2024-06-08 06:29] LABS: Creatine Kinase 20686 U/L (55-170)
[2024-06-08] MEDS: POTASSIUM CHLORIDE 20 MEQ in WATER FOR INJECTION 1 100ML.BAG IVPB SCH (06:51)
--- NOTE | 2024-06-08 07:30 | P.PN ---
Subjective Progress Note Date: 06/08/24 Principal diagnosis: Hypertension emergency This is a 64-year-old -[place] gentleman with a past medical history significant for history of alcohol use and drug use who was admitted to the hospital after he had cardiopulmonary arrest. Subsequently the EKG showed finding concerning for acute coronary syndrome. He underwent a heart catheterization which revealed no evidence of obstructive coronary artery disease. Subsequently the patient was intubated and placed on mechanical ventilation. June 08, 2024 He was seen and evaluated. He continues to be sedated. He continues to be on mechanical ventilation. The pressure remains elevated and currently he is on clevidipine IV. Hydralazine was initiated earlier today. Am going to increase the dose of hydralazine and add clonidine patches to the current medical regimen. The echo showed preserved LV systolic function with severe hypertensive heart disease. The examination is remarkable for regular rhythm with a systolic murmur at the right upper sternal border and clear breathing sounds bilaterally and no edema was noted in the lower extremities. Please note that the patient was also in renal failure. Assessment Cardiopulmonary arrest Acute coronary syndrome Hypertension emergency Renal failure History of drug abuse History of alcohol use Plan Try to wean the patient from clevidipine Increase the dose of hydralazine Add clonidine patch to the current medical regimen Monitor the kidney function and electrolytes Follow-up with the patient Objective - Vital Signs Vital signs: Vital Signs Temp 98.8 F 06/08/24 04:00 Pulse 106 H 06/08/24 07:00 Resp 13 06/08/24 07:00 BP 125/71 06/08/24 06:00 Pulse Ox 99 06/08/24 07:00 FiO2 50 06/08/24 04:28 Intake & Output 06/07/24 06/08/24 06/08/24 18:59 06:59 18:59 Intake Total 2693.127 2193.446 Output Total 998 1095 Balance 8514.939 7560.446 Weight 70 kg Intake: IV 2130 1580 0.9% NS KVO 80 130 Ampicillin-Sulbactam 1.5 100 50 gm In Sodium Chloride 0.9 % 50 ml @ 100 mls/hr IVPB Q8HR [facility] Rx#:[id number] Calcium Gluconate in NaCl 100 2 gm In Saline 1 100ml. bag @ 100 mls/hr IVPB ONCE ONE Rx#:[id number] Dextrose 5% in Water 1, 450 000 ml @ 150 mls/hr IV . Q7H40M [facility] with Sodium Bicarb (1 Meq/ml) 150 ml Rx#:[id number] Potassium Chloride 20 meq 300 50 In Water For Injection 1 100ml.bag @ 50 mls/hr IVPB ONCE ONE Rx#: [id number] Sodium Chloride 0.45% 1, 1000 1300 000 ml @ 100 mls/hr IV . Q10H [facility] Rx#:[id number] Thiamine 250 mg In Sodium 100 50 Chloride 0.9% 50 ml @ 100 mls/hr IVPB TID B[facility] Rx#:[id number] Intake, IV Titration 453.127 363.446 Amount Clevidipine Butyrate 25 81.333 118.199 mg In Empty Bag 1 bag @ 1 MG/HR 2 mls/hr IV .Q24H [facility] Rx#:[id number] Midazolam HCl 200 mg In 95.658 5.95 Sodium Chloride 0.9% 60 ml @ 1 MG/HR 0.5 mls/hr IV .Q24H [facility] Rx#: [id number] propofoL 1,000 mg In 276.136 239.297 Empty Bag 1 bag @ 60 MCG/ KG/MIN 23.678 mls/hr IV . Q4H14M [facility] Rx#:[id number] Tube Feeding 50 130 Other 60 120 Output: Chest Tube Drainage 3 0 Chest Tube Right Lateral 3 0 Chest Urine 995 1095 Other: Voiding Method Indwelling Catheter Indwelling Catheter # Bowel Movements 0 0 ABP, PAP, CO, CI - Last Documented Arterial Blood Pressure 131/53 - Labs CBC & Chem 7: 06/08/24 05:12 06/08/24 05:12 Labs: Abnormal Lab Results - Last 24 Hours (Table) 06/06/24 06/07/24 06/07/24 Range/Units 12:29 04:42 15:42 WBC (3.8-10.6) k/uL RBC (4.30-5.90) m/uL Neutrophils # (1.3-7.7) k/uL Lymphocytes # (1.0-4.8) k/uL ABG pH 7.53 H (7.35-7.45) ABG pO2 122 H (83-108) mmHg ABG HCO3 33 H (21-25) mmol/L ABG Total CO2 34 H (19-24) mmol/L ABG O2 Saturation 98.9 H (94-97) % Potassium 3.0 L (3.5-5.1) mmol/L Carbon Dioxide 32 H (22-30) mmol/L BUN 59 H (9-20) mg/dL Creatinine 2.96 H (0.66-1.25) mg/dL Glucose 149 H (74-99) mg/dL POC Glucose (mg/dL) (70-110) mg/dL Calcium 6.5 L (8.4-10.2) mg/dL AST (17-59) U/L ALT (4-49) U/L Creatine Kinase (55-170) U/L Total Protein (6.3-8.2) g/dL Albumin (3.5-5.0) g/dL Hep Bs Antibody A (Negative) Hep C IgG Ab Reactive A (Nonreactive) 06/07/24 06/07/24 06/08/24 Range/Units 16:21 16:30 00:19 WBC (3.8-10.6) k/uL RBC (4.30-5.90) m/uL Neutrophils # (1.3-7.7) k/uL Lymphocytes # (1.0-4.8) k/uL ABG pH (7.35-7.45) ABG pO2 (83-108) mmHg ABG HCO3 (21-25) mmol/L ABG Total CO2 (19-24) mmol/L ABG O2 Saturation (94-97) % Potassium (3.5-5.1) mmol/L Carbon Dioxide 35 H (22-30) mmol/L BUN 57 H (9-20) mg/dL Creatinine 3.00 H (0.66-1.25) mg/dL Glucose 119 H (74-99) mg/dL POC Glucose (mg/dL) 133 H (70-110) mg/dL Calcium 6.2 L* (8.4-10.2) mg/dL AST (17-59) U/L ALT (4-49) U/L Creatine Kinase 33186 H* (55-170) U/L Total Protein (6.3-8.2) g/dL Albumin (3.5-5.0) g/dL Hep Bs Antibody (Negative) Hep C IgG Ab (Nonreactive) 06/08/24 06/08/24 06/08/24 Range/Units 05:12 05:12 05:28 WBC 12.4 H (3.8-10.6) k/uL RBC 4.27 L (4.30-5.90) m/uL Neutrophils # 10.9 H (1.3-7.7) k/uL Lymphocytes # 0.7 L (1.0-4.8) k/uL ABG pH 7.50 H (7.35-7.45) ABG pO2 116 H (83-108) mmHg ABG HCO3 31 H (21-25) mmol/L ABG Total CO2 32 H (19-24) mmol/L ABG O2 Saturation 98.8 H (94-97) % Potassium (3.5-5.1) mmol/L Carbon Dioxide 33 H (22-30) mmol/L BUN 54 H (9-20) mg/dL Creatinine 3.12 H (0.66-1.25) mg/dL Glucose 135 H (74-99) mg/dL POC Glucose (mg/dL) (70-110) mg/dL Calcium 6.9 L (8.4-10.2) mg/dL AST 1151 H (17-59) U/L ALT 818 H (4-49) U/L Creatine Kinase 55763 H* (55-170) U/L Total Protein 6.0 L (6.3-8.2) g/dL Albumin 2.8 L (3.5-5.0) g/dL Hep Bs Antibody (Negative) Hep C IgG Ab (Nonreactive) Microbiology - Last 24 Hours (Table) 06/06/24 15:24 Blood Culture - Preliminary Blood 06/06/24 05:48 Gram Stain - Preliminary Sputum Sputum Culture - Preliminary
--- NOTE | 2024-06-08 08:18 | XR ---
EXAMINATION TYPE: XR chest 1V DATE OF EXAM: 06/08/2024 COMPARISON: 06/07/2024 HISTORY: SOB, Follow Up FINDINGS: Indwelling tubes and catheters are unchanged. No evidence for pneumothorax. Basilar pleural-parenchymal changes are redemonstrated. Stable appearance of the cardio-mediastinal structures at this time. Pleural effusion unchanged. IMPRESSION: 1. Stable portable chest. Clinical correlation and follow up until resolution is recommended.
--- NOTE | 2024-06-08 08:37 | P.PN ---
Subjective Patient is seen in follow-up for acute kidney injury. Renal function stable. Nonoliguric. Receiving tube feeds. CK level trending down. Currently on half- normal saline. Vital signs are stable. General: Resting in bed. HEENT: Intubated. LUNGS: Scattered rhonchi. HEART: Rate and Rhythm are regular. ABDOMEN: No distention. EXTREMITITES: No edema. Objective - Vital Signs Vital signs: Vital Signs Temp 98.8 F 06/08/24 04:00 Pulse 105 H 06/08/24 08:00 Resp 13 06/08/24 07:00 BP 125/71 06/08/24 06:00 Pulse Ox 99 06/08/24 07:00 FiO2 50 06/08/24 08:00 Intake & Output 06/07/24 06/08/24 06/08/24 18:59 06:59 18:59 Intake Total 2693.127 2193.446 Output Total 998 1095 Balance 4780.428 7346.446 Weight 70 kg Intake: IV 2130 1580 0.9% NS KVO 80 130 Ampicillin-Sulbactam 1.5 100 50 gm In Sodium Chloride 0.9 % 50 ml @ 100 mls/hr IVPB Q8HR [facility] Rx#:[id number] Calcium Gluconate in NaCl 100 2 gm In Saline 1 100ml. bag @ 100 mls/hr IVPB ONCE ONE Rx#:[id number] Dextrose 5% in Water 1, 450 000 ml @ 150 mls/hr IV . Q7H40M [facility] with Sodium Bicarb (1 Meq/ml) 150 ml Rx#:[id number] Potassium Chloride 20 meq 300 50 In Water For Injection 1 100ml.bag @ 50 mls/hr IVPB ONCE ONE Rx#: [id number] Sodium Chloride 0.45% 1, 1000 1300 000 ml @ 100 mls/hr IV . Q10H [facility] Rx#:[id number] Thiamine 250 mg In Sodium 100 50 Chloride 0.9% 50 ml @ 100 mls/hr IVPB TID [facility] Rx#:[id number] Intake, IV Titration 453.127 363.446 Amount Clevidipine Butyrate 25 81.333 118.199 mg In Empty Bag 1 bag @ 1 MG/HR 2 mls/hr IV .Q24H [facility] Rx#:[id number] Midazolam HCl 200 mg In 95.658 5.95 Sodium Chloride 0.9% 60 ml @ 1 MG/HR 0.5 mls/hr IV .Q24H [facility] Rx#: [id number] propofoL 1,000 mg In 276.136 239.297 Empty Bag 1 bag @ 60 MCG/ KG/MIN 23.678 mls/hr IV . Q4H14M [facility] Rx#:[id number] Tube Feeding 50 130 Other 60 120 Output: Chest Tube Drainage 3 0 Chest Tube Right Lateral 3 0 Chest Urine 995 1095 Other: Voiding Method Indwelling Catheter Indwelling Catheter # Bowel Movements 0 0 ABP, PAP, CO, CI - Last Documented Arterial Blood Pressure 131/53 - Labs CBC & Chem 7: 06/08/24 05:12 06/08/24 05:12 Labs: Abnormal Lab Results - Last 24 Hours (Table) 06/06/24 06/07/24 06/07/24 Range/Units 12:29 04:42 15:42 WBC (3.8-10.6) k/uL RBC (4.30-5.90) m/uL Neutrophils # (1.3-7.7) k/uL Lymphocytes # (1.0-4.8) k/uL ABG pH 7.53 H (7.35-7.45) ABG pO2 122 H (83-108) mmHg ABG HCO3 33 H (21-25) mmol/L ABG Total CO2 34 H (19-24) mmol/L ABG O2 Saturation 98.9 H (94-97) % Potassium 3.0 L (3.5-5.1) mmol/L Carbon Dioxide 32 H (22-30) mmol/L BUN 59 H (9-20) mg/dL Creatinine 2.96 H (0.66-1.25) mg/dL Glucose 149 H (74-99) mg/dL POC Glucose (mg/dL) (70-110) mg/dL Calcium 6.5 L (8.4-10.2) mg/dL AST (17-59) U/L ALT (4-49) U/L Creatine Kinase (55-170) U/L Total Protein (6.3-8.2) g/dL Albumin (3.5-5.0) g/dL Hep Bs Antibody A (Negative) Hep C IgG Ab Reactive A (Nonreactive) 06/07/24 06/07/24 06/08/24 Range/Units 16:21 16:30 00:19 WBC (3.8-10.6) k/uL RBC (4.30-5.90) m/uL Neutrophils # (1.3-7.7) k/uL Lymphocytes # (1.0-4.8) k/uL ABG pH (7.35-7.45) ABG pO2 (83-108) mmHg ABG HCO3 (21-25) mmol/L ABG Total CO2 (19-24) mmol/L ABG O2 Saturation (94-97) % Potassium (3.5-5.1) mmol/L Carbon Dioxide 35 H (22-30) mmol/L BUN 57 H (9-20) mg/dL Creatinine 3.00 H (0.66-1.25) mg/dL Glucose 119 H (74-99) mg/dL POC Glucose (mg/dL) 133 H (70-110) mg/dL Calcium 6.2 L* (8.4-10.2) mg/dL AST (17-59) U/L ALT (4-49) U/L Creatine Kinase 15386 H* (55-170) U/L Total Protein (6.3-8.2) g/dL Albumin (3.5-5.0) g/dL Hep Bs Antibody (Negative) Hep C IgG Ab (Nonreactive) 06/08/24 06/08/24 06/08/24 Range/Units 05:12 05:12 05:28 WBC 12.4 H (3.8-10.6) k/uL RBC 4.27 L (4.30-5.90) m/uL Neutrophils # 10.9 H (1.3-7.7) k/uL Lymphocytes # 0.7 L (1.0-4.8) k/uL ABG pH 7.50 H (7.35-7.45) ABG pO2 116 H (83-108) mmHg ABG HCO3 31 H (21-25) mmol/L ABG Total CO2 32 H (19-24) mmol/L ABG O2 Saturation 98.8 H (94-97) % Potassium (3.5-5.1) mmol/L Carbon Dioxide 33 H (22-30) mmol/L BUN 54 H (9-20) mg/dL Creatinine 3.12 H (0.66-1.25) mg/dL Glucose 135 H (74-99) mg/dL POC Glucose (mg/dL) (70-110) mg/dL Calcium 6.9 L (8.4-10.2) mg/dL AST 1151 H (17-59) U/L ALT 818 H (4-49) U/L Creatine Kinase 01541 H* (55-170) U/L Total Protein 6.0 L (6.3-8.2) g/dL Albumin 2.8 L (3.5-5.0) g/dL Hep Bs Antibody (Negative) Hep C IgG Ab (Nonreactive) Microbiology - Last 24 Hours (Table) 06/06/24 10:08 Urine Culture - Final Urine,Voided 06/06/24 15:24 Blood Culture - Preliminary Blood 06/06/24 05:48 Gram Stain - Preliminary Sputum Sputum Culture - Preliminary Assessment and Plan Plan: Assessment: 1. Acute kidney injury secondary to ATN secondary to cardiac arrest and rhabdomyolysis. Unknown baseline renal function. Creatinine 3.67 on admission and 3.12 today. No hydronephrosis noted on kidney ultrasound. 2. Proteinuria and hematuria. Questionable GN. Patient does have history of hepatitis C. Also cocaine abuse which can cause vasculitis. 3. Rhabdomyolysis. CK levels trending down. 4. Status post cardiac arrest. 5. Acute [place] status postcardiac catheterization with no intervention. Likely related to cocaine abuse. 6. Metabolic acidosis secondary to acute kidney injury. Resolved. 7. Hyperphosphatemia secondary to acute kidney injury and rhabdomyolysis. Improved. Phosphorus level 5.0 dated June 07, 2024. Plan: Change IV fluids from half-normal saline to normal saline at 100 cc an hour. Repeat CK level in the morning. Repeat UA. Check serologies. Continue to monitor renal function and urine output.
[2024-06-08] MEDS: cloNIDine 0.2 MG/24HR PATCH TRANSDERM SCH (08:59)
[2024-06-08] MEDS: hydrALAZINE HCL 50 MG TAB PO SCH (09:00)
[2024-06-08] MEDS: SODIUM CHLORIDE 0.9% 1,000 ML IV SCH (09:02)
[2024-06-08 10:26] LABS: Appearance,Urine Cloudy (Clear); Bacteria,Urine Rare /hpf; Bilirubin,Urine Negative (Negative); Blood,Urine Moderate (Negative); Budding Yeast,Urine Few /hpf; Color,Urine Yellow; Glucose,Urine (UA) Negative (Negative); Ketones,Urine Negative (Negative); Leukocyte Esterase,Urine Trace (Negative); Mucus,Urine Rare /hpf; Nitrite,Urine Negative (Negative); Protein,Urine 1+ (Negative); RBC,Urine 2 /hpf (0-5); Specific Gravity,Urine 1.014 (1.001-1.035); Squamous Epithelial Cell,Urine 1 /hpf (0-4); Urobilinogen,Urine <2.0 mg/dL (<2.0); WBC,Urine 10 /hpf (0-5)
--- NOTE | 2024-06-08 10:48 | P.PN ---
Subjective Progress Note Date: 06/08/24 64-year-old male with history of polysubstance abuse including heroin, cocaine, alcohol presenting from [place] for witnessed cardiac arrest on 06/06. Unknown downtime. Per report, patient possibly had seizure-like activity after having a cardiac arrest. He had multiple rounds of CPR and was intubated in the field. After getting to the hospital, he was found to be bradycardic for which he was given atropine. EKG concerning for anterior STEMI with ST elevations in aVR and V1, patient taken directly to [facility], coronary arteries are patent. Patient now in the ICU. Initial vitals BP 61/38, mechanically ventilated, RR 16, HR 119, T 96.8F. CBC, Coag panel, CMP significant for WBC 13.5, Hct 54.3, MCV 101.2, PT 13.1, INR 1.2, bicarb 14, BUN 41, Cr 3.67. glu 163, Ca 10.5, AST 499, ALT 171, total protein 8.9. Lactic acid 11.4. Phos 14.4. Mag 3.4. Troponin 0.191. BNP 47329. TSH 9.22. CXR no acute findings, ET tube, central line, NG tube in place. ICU, nephrology, neurology, cardiology on board. Echo EF 65-70% severe LV thickness. CXR showed right PTX, status post chest tube on 06/06. Brain CT negative. EEG mod-severe encephalopathy. 06/08 Patient was seen and examined. Intubated. CBC, CMP significant for WBC 12.4, RBC 4.27, bicarb 33, BUN 54, Cr 3.12, glu 135, Ca 6.9, AST 1151, ALT 818, alb 2.8. CPK 55317. ABG pH 7.5, pO2 116, pCO2 39 FiO2 50. CXR shows R chest tube with no PTX, ET tube, NG tube, central venous catheter in place. Tmax 100.3F overnight, BP 131/53, HR 106, RR 13, 99% FiO2 50. General: Intubated Derm: warm, dry Head: atraumatic, normocephalic, symmetric Eyes: no lid lag, anicteric sclera Mouth: no lip lesion, mucus membranes moist Cardiovascular: S1 S2 tachy. + systolic murmurs, rubs or gallops. No LE edema Lungs: Decreased BS bilaterally, no accessory muscle use Ext: No muscle atrophy Neuro: Intubated Psych: Intubated Right chest tube in place Based on my assessment of this patient, this patient meets a high complexity level of care. Hypertensive emergency: Clevidipine drip at 8mg/hr. Hydralazine 50 mg PO QID. [id number] cardiac arrest: Unknown etiology. Possible related to cocaine use. Cath negative. Concern for PE less likely. Cardiology on board. Acute anterior STEMI Acute metabolic encephalopathy: Concern for anxoic brain injury. CT brain negative. EEG mod-severe encephalopathy. Ammonia negative. Seizure like activity witnessed. Vimpat 50 mg IV BID, Keppra 500 mg IV BID. Neurology on board. Acute respiratory failure: Vent managed by Pulmonary. Right pneumothorax status post chest tube 06/06 Acute rhabdomyolysis: 1/2NS at 100 cc/hr. Trend CPK. Monitor renal function. SIRS: Empirically covered with Unasyn 3g IV TID. Transaminitis likely shock liver with Hep B + C positive. Nonoliguric JAYASHREE: IV hydration as above. Nephrology on board. History of polysubstance abuse: UDS + benzo + cocaine. Metabolic alkalosis along with respiratory alkalosis Euthyroid sick syndrome: TSH 9.22. Resolved: Cardiogenic versus hypovolemic shock, high AG met acidosis CODE STATUS: FULL CODE DVT Prophylaxis: Heparin SQ GI Prophylaxis: Protonix IV Designated medical POA if patient is not able to make medical decisions for themselves: I have reviewed the following practice consultant notes: Pulmonary, Cardiology, Neurology, Nephrology I have reviewed the results of the following tests: CBC, CMP, ABG, CPK. I have ordered the following tests: I have discussed the care of this patient with the following independent historian: I have independently interpreted the following test below: CXR. I have discussed the management of this patient with the following physician: Dr. Post Objective - Vital Signs Vital signs: Vital Signs Temp 98.8 F 06/08/24 04:00 Pulse 106 H 06/08/24 07:00 Resp 13 06/08/24 07:00 BP 125/71 06/08/24 06:00 Pulse Ox 99 06/08/24 07:00 FiO2 50 06/08/24 04:28 Intake & Output 06/07/24 06/08/24 06/08/24 18:59 06:59 18:59 Intake Total 2693.127 2193.446 Output Total 998 1095 Balance 9861.406 7478.446 Weight 70 kg Intake: IV 2130 1580 0.9% NS KVO 80 130 Ampicillin-Sulbactam 1.5 100 50 gm In Sodium Chloride 0.9 % 50 ml @ 100 mls/hr IVPB Q8HR BEV Rx#:[id number] Calcium Gluconate in NaCl 100 2 gm In Saline 1 100ml. bag @ 100 mls/hr IVPB ONCE ONE Rx#:[id number] Dextrose 5% in Water 1, 450 000 ml @ 150 mls/hr IV . Q7H40M BEV with Sodium Bicarb (1 Meq/ml) 150 ml Rx#:[id number] Potassium Chloride 20 meq 300 50 In Water For Injection 1 100ml.bag @ 50 mls/hr IVPB ONCE ONE Rx#: [id number] Sodium Chloride 0.45% 1, 1000 1300 000 ml @ 100 mls/hr IV . Q10H BEV Rx#:[id number] Thiamine 250 mg In Sodium 100 50 Chloride 0.9% 50 ml @ 100 mls/hr IVPB TID BEV Rx#:[id number] Intake, IV Titration 453.127 363.446 Amount Clevidipine Butyrate 25 81.333 118.199 mg In Empty Bag 1 bag @ 1 MG/HR 2 mls/hr IV .Q24H BEV Rx#:[id number] Midazolam HCl 200 mg In 95.658 5.95 Sodium Chloride 0.9% 60 ml @ 1 MG/HR 0.5 mls/hr IV .Q24H BEV Rx#: [id number] propofoL 1,000 mg In 276.136 239.297 Empty Bag 1 bag @ 60 MCG/ KG/MIN 23.678 mls/hr IV . Q4H14M BEV Rx#:[id number] Tube Feeding 50 130 Other 60 120 Output: Chest Tube Drainage 3 0 Chest Tube Right Lateral 3 0 Chest Urine 995 1095 Other: Voiding Method Indwelling Catheter Indwelling Catheter # Bowel Movements 0 0 ABP, PAP, CO, CI - Last Documented Arterial Blood Pressure 131/53 - Labs CBC & Chem 7: 06/08/24 05:12 06/08/24 05:12 Labs: Abnormal Lab Results - Last 24 Hours (Table) 06/06/24 06/07/24 06/07/24 Range/Units 12:29 04:42 15:42 WBC (3.8-10.6) k/uL RBC (4.30-5.90) m/uL Neutrophils # (1.3-7.7) k/uL Lymphocytes # (1.0-4.8) k/uL ABG pH 7.53 H (7.35-7.45) ABG pO2 122 H (83-108) mmHg ABG HCO3 33 H (21-25) mmol/L ABG Total CO2 34 H (19-24) mmol/L ABG O2 Saturation 98.9 H (94-97) % Potassium 3.0 L (3.5-5.1) mmol/L Carbon Dioxide 32 H (22-30) mmol/L BUN 59 H (9-20) mg/dL Creatinine 2.96 H (0.66-1.25) mg/dL Glucose 149 H (74-99) mg/dL POC Glucose (mg/dL) (70-110) mg/dL Calcium 6.5 L (8.4-10.2) mg/dL AST (17-59) U/L ALT (4-49) U/L Creatine Kinase (55-170) U/L Total Protein (6.3-8.2) g/dL Albumin (3.5-5.0) g/dL Hep Bs Antibody A (Negative) Hep C IgG Ab Reactive A (Nonreactive) 06/07/24 06/07/24 06/08/24 Range/Units 16:21 16:30 00:19 WBC (3.8-10.6) k/uL RBC (4.30-5.90) m/uL Neutrophils # (1.3-7.7) k/uL Lymphocytes # (1.0-4.8) k/uL ABG pH (7.35-7.45) ABG pO2 (83-108) mmHg ABG HCO3 (21-25) mmol/L ABG Total CO2 (19-24) mmol/L ABG O2 Saturation (94-97) % Potassium (3.5-5.1) mmol/L Carbon Dioxide 35 H (22-30) mmol/L BUN 57 H (9-20) mg/dL Creatinine 3.00 H (0.66-1.25) mg/dL Glucose 119 H (74-99) mg/dL POC Glucose (mg/dL) 133 H (70-110) mg/dL Calcium 6.2 L* (8.4-10.2) mg/dL AST (17-59) U/L ALT (4-49) U/L Creatine Kinase 43470 H* (55-170) U/L Total Protein (6.3-8.2) g/dL Albumin (3.5-5.0) g/dL Hep Bs Antibody (Negative) Hep C IgG Ab (Nonreactive) 06/08/24 06/08/24 06/08/24 Range/Units 05:12 05:12 05:28 WBC 12.4 H (3.8-10.6) k/uL RBC 4.27 L (4.30-5.90) m/uL Neutrophils # 10.9 H (1.3-7.7) k/uL Lymphocytes # 0.7 L (1.0-4.8) k/uL ABG pH 7.50 H (7.35-7.45) ABG pO2 116 H (83-108) mmHg ABG HCO3 31 H (21-25) mmol/L ABG Total CO2 32 H (19-24) mmol/L ABG O2 Saturation 98.8 H (94-97) % Potassium (3.5-5.1) mmol/L Carbon Dioxide 33 H (22-30) mmol/L BUN 54 H (9-20) mg/dL Creatinine 3.12 H (0.66-1.25) mg/dL Glucose 135 H (74-99) mg/dL POC Glucose (mg/dL) (70-110) mg/dL Calcium 6.9 L (8.4-10.2) mg/dL AST 1151 H (17-59) U/L ALT 818 H (4-49) U/L Creatine Kinase 58260 H* (55-170) U/L Total Protein 6.0 L (6.3-8.2) g/dL Albumin 2.8 L (3.5-5.0) g/dL Hep Bs Antibody (Negative) Hep C IgG Ab (Nonreactive) Microbiology - Last 24 Hours (Table) 06/06/24 15:24 Blood Culture - Preliminary Blood 06/06/24 05:48 Gram Stain - Preliminary Sputum Sputum Culture - Preliminary
[2024-06-08 11:50] LABS: Glucose,Whole Blood 137 mg/dL (70-110)
--- NOTE | 2024-06-08 13:20 | P.PN ---
Subjective Progress Note Date: 06/08/24 I am following up with the patient per nurse patient has intermittent fluttering time to time. Otherwise no new neurological issues. They will attempt to wean the sedation today. Objective - Vital Signs Vital signs: Vital Signs Temp 98.5 F 06/08/24 12:00 Pulse 104 H 06/08/24 12:00 Resp 15 06/08/24 12:00 BP 127/71 06/08/24 12:00 Pulse Ox 100 06/08/24 12:00 FiO2 40 06/08/24 12:00 Intake & Output 06/07/24 06/08/24 06/08/24 18:59 06:59 18:59 Intake Total 2693.127 2193.446 1372.593 Output Total 998 1095 485 Balance 8808.215 9868.446 887.593 Weight 70 kg Intake: IV 2130 1580 1010 0.9% NS KVO 80 130 60 Ampicillin-Sulbactam 1.5 100 50 gm In Sodium Chloride 0.9 % 50 ml @ 100 mls/hr IVPB Q8HR BEV Rx#:[id number] Calcium Gluconate in NaCl 100 2 gm In Saline 1 100ml. bag @ 100 mls/hr IVPB ONCE ONE Rx#:[id number] Dextrose 5% in Water 1, 450 000 ml @ 150 mls/hr IV . Q7H40M BEV with Sodium Bicarb (1 Meq/ml) 150 ml Rx#:[id number] Potassium Chloride 20 meq 300 50 100 In Water For Injection 1 100ml.bag @ 50 mls/hr IVPB ONCE ONE Rx#: [id number] Sodium Chloride 0.45% 1, 1000 1300 100 000 ml @ 100 mls/hr IV . Q10H BEV Rx#:[id number] Sodium Chloride 0.9% 1, 750 000 ml @ 150 mls/hr IV . Q6H40M BEV Rx#:[id number] Thiamine 250 mg In Sodium 100 50 Chloride 0.9% 50 ml @ 100 mls/hr IVPB TID BEV Rx#:[id number] Intake, IV Titration 453.127 363.446 182.593 Amount Clevidipine Butyrate 25 81.333 118.199 69.833 mg In Empty Bag 1 bag @ 1 MG/HR 2 mls/hr IV .Q24H BEV Rx#:[id number] Midazolam HCl 200 mg In 95.658 5.95 5.292 Sodium Chloride 0.9% 60 ml @ 1 MG/HR 0.5 mls/hr IV .Q24H BEV Rx#: [id number] propofoL 1,000 mg In 276.136 239.297 107.468 Empty Bag 1 bag @ 60 MCG/ KG/MIN 23.678 mls/hr IV . Q4H14M BEV Rx#:[id number] Oral 60 Tube Feeding 50 130 60 Other 60 120 60 Output: Chest Tube Drainage 3 0 Chest Tube Right Lateral 3 0 Chest Urine 995 1095 485 Other: Voiding Method Indwelling Catheter Indwelling Catheter Indwelling Catheter # Bowel Movements 0 0 ABP, PAP, CO, CI - Last Documented Arterial Blood Pressure 143/52 - Exam General: Lying in bed and does not appear in acute distress. HENT: Supple neck Lung: Intubated on ventilator. Neuro: Limited. Is on IV propofol. IV Versed is currently being held. Patient is comatose. Patient is breathing over the vent. No eye twitching notes at baseline or to opening eyes. Manually open eyes and the pupils are pinpoint round and primary gaze is midline. Is breathing over the vent. Motor: Unable to assess because of his overall condition. But no withdrawaling to painful stimuli. no jerking of any extremities. No twitching any of the extremities. No spontaneous movement. Tone is decreased throughout. Reflex: 0-1 throughout. Plantars are mute b/l. Some of the other workup during this hospital visit consisted of: MCV is 101 Creatinine is 3.67, sodium is 143, glucose on presentation is 163 Plasma lactic acid vein is 11.4, calcium 7.5, phosphorus 14.4, magnesium 3.4, AST is 499 and ALT is 171 TSH is 9.20 Serum B12: 735 Serum folate: 15.7 Ammonia: <9 AST and ALT levels are trending up CT head: No significant abnormality seen. There is no acute bleed or mass effect. Routine EEG: Is abnormal. The background slowing suggestive of moderate to severe encephalopathy. There are no focal slowing, OptiForm discharges or seizure on the EEG. - Labs CBC & Chem 7: 06/08/24 05:12 06/08/24 12:54 Labs: Abnormal Lab Results - Last 24 Hours (Table) 09/05/2306/07/24 06/07/24 Range/Units 15:42 16:21 16:30 WBC (3.8-10.6) k/uL RBC (4.30-5.90) m/uL Neutrophils # (1.3-7.7) k/uL Lymphocytes # (1.0-4.8) k/uL ABG pH 7.53 H (7.35-7.45) ABG pO2 122 H (83-108) mmHg ABG HCO3 33 H (21-25) mmol/L ABG Total CO2 34 H (19-24) mmol/L ABG O2 Saturation 98.9 H (94-97) % Carbon Dioxide 35 H (22-30) mmol/L BUN 57 H (9-20) mg/dL Creatinine 3.00 H (0.66-1.25) mg/dL Glucose 119 H (74-99) mg/dL POC Glucose (mg/dL) (70-110) mg/dL Calcium 6.2 L* (8.4-10.2) mg/dL Ionized Calcium Raya (4.5-5.3) mg/dL AST (17-59) U/L ALT (4-49) U/L Creatine Kinase 01885 H* (55-170) U/L Total Protein (6.3-8.2) g/dL Albumin (3.5-5.0) g/dL Urine Protein (Negative) Urine Blood (Negative) Ur Leukocyte Esterase (Negative) Urine WBC (0-5) /hpf Urine Bacteria (None) /hpf Urine Mucus (None) /hpf Urine Yeast (Budding) (None) /hpf 06/08/24 06/08/24 06/08/24 Range/Units 00:19 05:12 05:12 WBC 12.4 H (3.8-10.6) k/uL RBC 4.27 L (4.30-5.90) m/uL Neutrophils # 10.9 H (1.3-7.7) k/uL Lymphocytes # 0.7 L (1.0-4.8) k/uL ABG pH (7.35-7.45) ABG pO2 (83-108) mmHg ABG HCO3 (21-25) mmol/L ABG Total CO2 (19-24) mmol/L ABG O2 Saturation (94-97) % Carbon Dioxide 33 H (22-30) mmol/L BUN 54 H (9-20) mg/dL Creatinine 3.12 H (0.66-1.25) mg/dL Glucose 135 H (74-99) mg/dL POC Glucose (mg/dL) 133 H (70-110) mg/dL Calcium 6.9 L (8.4-10.2) mg/dL Ionized Calcium Raya (4.5-5.3) mg/dL AST 1151 H (17-59) U/L ALT 818 H (4-49) U/L Creatine Kinase 33784 H* (55-170) U/L Total Protein 6.0 L (6.3-8.2) g/dL Albumin 2.8 L (3.5-5.0) g/dL Urine Protein (Negative) Urine Blood (Negative) Ur Leukocyte Esterase (Negative) Urine WBC (0-5) /hpf Urine Bacteria (None) /hpf Urine Mucus (None) /hpf Urine Yeast (Budding) (None) /hpf 06/08/24 06/08/24 06/08/24 Range/Units 05:12 05:28 09:40 WBC (3.8-10.6) k/uL RBC (4.30-5.90) m/uL Neutrophils # (1.3-7.7) k/uL Lymphocytes # (1.0-4.8) k/uL ABG pH 7.50 H (7.35-7.45) ABG pO2 116 H (83-108) mmHg ABG HCO3 31 H (21-25) mmol/L ABG Total CO2 32 H (19-24) mmol/L ABG O2 Saturation 98.8 H (94-97) % Carbon Dioxide (22-30) mmol/L BUN (9-20) mg/dL Creatinine (0.66-1.25) mg/dL Glucose (74-99) mg/dL POC Glucose (mg/dL) (70-110) mg/dL Calcium (8.4-10.2) mg/dL Ionized Calcium Raya 3.8 L (4.5-5.3) mg/dL AST (17-59) U/L ALT (4-49) U/L Creatine Kinase (55-170) U/L Total Protein (6.3-8.2) g/dL Albumin (3.5-5.0) g/dL Urine Protein 1+ H (Negative) Urine Blood Moderate H (Negative) Ur Leukocyte Esterase Trace H (Negative) Urine WBC 10 H (0-5) /hpf Urine Bacteria Rare H (None) /hpf Urine Mucus Rare H (None) /hpf Urine Yeast (Budding) Few H (None) /hpf 06/08/24 Range/Units 11:48 WBC (3.8-10.6) k/uL RBC (4.30-5.90) m/uL Neutrophils # (1.3-7.7) k/uL Lymphocytes # (1.0-4.8) k/uL ABG pH (7.35-7.45) ABG pO2 (83-108) mmHg ABG HCO3 (21-25) mmol/L ABG Total CO2 (19-24) mmol/L ABG O2 Saturation (94-97) % Carbon Dioxide (22-30) mmol/L BUN (9-20) mg/dL Creatinine (0.66-1.25) mg/dL Glucose (74-99) mg/dL POC Glucose (mg/dL) 137 H (70-110) mg/dL Calcium (8.4-10.2) mg/dL Ionized Calcium Raya (4.5-5.3) mg/dL AST (17-59) U/L ALT (4-49) U/L Creatine Kinase (55-170) U/L Total Protein (6.3-8.2) g/dL Albumin (3.5-5.0) g/dL Urine Protein (Negative) Urine Blood (Negative) Ur Leukocyte Esterase (Negative) Urine WBC (0-5) /hpf Urine Bacteria (None) /hpf Urine Mucus (None) /hpf Urine Yeast (Budding) (None) /hpf Microbiology - Last 24 Hours (Table) 06/06/24 10:08 Urine Culture - Final Urine,Voided 06/06/24 15:24 Blood Culture - Preliminary Blood 06/06/24 05:48 Gram Stain - Preliminary Sputum Sputum Culture - Preliminary Assessment and Plan Assessment: Is a 64-year-old gentleman with history of polysubstance abuse including heroin, cocaine, alcohol use who presented from [place] for witnessed cardiac arrest. Unknown exact story or duration of cardiac arrest. Unsure if the patient had syncopal episode that was convulsive that led to cardiac arrest or vice versa. As a result patient had CPR he was intubated in the field. The patient was found to be bradycardic and was given atropine. 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 Outside hospital Cardiac arrest (duration for 20 minutes) Likely anoxic brain injury due to above. Also has some component of metabolic derangement that can also give metabolic encephalopathy. CT head is negative for acute or subacute process or bleed. Eye twitching examination likely due to above since patient had cerebral anoxia that can lead to seizures/myoclonic seizure--no seizure or discharges on the r outine EEG. Elevated lactic acid level Elevated electrolyte levels such as phosphorus, magnesium Abnormal TSH Elevated liver function AST more than ALT for alcohol use--trending up Kidney insufficiency and unsure if this is acute or chronic. Acute respiratory distress and the patient is intubated on the ventilator History of polysubstance use including heroin, cocaine and alcohol Plan: Keppra 500 mg twice daily and Vimpat 50 mg twice daily for his eyes twitching concerning for seizure/myoclonus seizure which was started on 06/06/2024. Patient is on thiamine 250 mg 3 times daily Nephrology team is consulted Will defer the rest of the medical management to primary and other specialist Condition is critical. His overall prognosis is very poor. Getting sedation holiday today and hopefully will have better neurological examination. Currently with sedation is breathing over the vent. Plan discussed with patient primary team. Time with Patient: Less than 30
--- NOTE | 2024-06-08 14:18 | P.PN ---
Subjective Progress Note Date: 06/08/24 Principal diagnosis: Cardiopulmonary arrest This is a 64-year-old male patient was in [place] and the patient was about to get discharged. He has history of polysubstance abuse including cocaine, heroin alcoholism. The patient developed some mental status change and subs equently the became bradycardic and the apparently collapsed and subsequently found to to be in cardiopulmonary arrest. The original rhythm information is not available. Please refer to the emergency notes. Apparently patient was found unresponsive and he stopped breathing and he collapsed. CPR was initiated by EMS. The patient was intubated on the route. Subsequently, CPR was continued in our emergency department. Initial EKG showed some ST segment elevation over the V1 and V2 leads. Based on that, the patient was taken immediately to the [facility] and underwent a cardiac catheterization that this showed essentially normal coronaries. The clinic pressures were also low. The patient was kept intubated and following that he was moved to the intensive care unit. At this point in time, the patient is intubated on mechanical ventilator. He is on propofol which is running at 60 mcg/kg/min is also on a Versed drip at 12 mg an hour. He is on assist-control mode of mechanical ventilation at rate of 18, tidal volume of 400, FiO2 50% with a PEEP of 5. Initial lactic acid level was 11.4 and dropped down to 7.7. Initial blood gases showed a pH of 7.06 with a pCO2 of 50 and pO2 more than 420. Subsequent blood gas showed a pH of 7.39 with a pCO2 of 39 and pO2 of 95 and this was verified to 50%. Chest x-ray showed no consolidation or airspace disease. The morning chest x-ray showed right-sided pneumothorax. Based on that, I inserted a 28 [place] chest tube into the right hemithorax and a pneumothorax was drained. Chest tube is currently in place and the patient is positive airleak. Hemodynamically, the patient has no pressors. He is slightly hypothermic and his most recent temperature is at 95.5 degrees. The white cell count of 13.5 with a hemoglobin 17.5 and a platelet count of 315. The patient has sustained acute kidney injury with a BUN of 41 with a creatinine of 3.6 and urine output is only a (an hour. Serum bicarb is at 14 with an anion gap of 28. Sodium is at 143. AST is 499, ALT is 171, troponin is at 0.191 and proBNP level is 18,300. TSH is at 9.2. UA showed 28 RBCs and 71 WBCs. CAT scan of the brain has not been done. Neurologically, the patient is not withdrawing to painful stimulation. No seizure activity. Pupils are round 2 mm in size, symmetrical. Reflexes are quite diminished in all 4 EXTR. He is breathing about the mechanical ventilator. 06/07/2024, the patient remains intubated on mechanical ventilator. The patient is sedated with a combination of propofol running at 65 mcg/kg/min and Versed drip at 15 mg an hour. Patient is also on a combination of Vimpat and Keppra. Some twitching of the lip was noted, suspected seizures, suspected anoxic encephalopathy and the patient is having an EEG done today. Neurology is on the case. No active twitching or body jerks is noted on clinical examination today. Meanwhile, the patient is still on the mechanical ventilator. The patient is on a pressure control mode of mechanical ventilation at rate of 12, pressure control of 20, FiO2 50% with a PEEP of 5. Chest x-ray from today shows no acute abnormalities. The right-sided chest tube is in place. There is intermittent air leak and there is no evidence of any pneumothorax. ET tube is in good location. The patient's blood gas from today shows a pH of 7.6 with a pCO2 of 31 and a pO2 of 121. Bicarb drip has been discontinued and the patient is currently on half-normal saline which is running at 100 cc an hour. The patient sustained an acute rhabdomyolysis. Cardiac catheterization was negative for any coronary abnormalities. Echocardiogram was also done that showed a preserved LV function without any significant valvular abnormalities. Ejection fraction was around 65%. CAT scan of the brain was done and it showed no acute abnormalities. Ultrasound of the kidneys showed no hydronephrosis. The blood work from today shows a white cell count of 14.3 with a hemoglobin 15.8 and a platelet count of 232. Sodium is at 140 with a potassium level of 3.0. BUN is 59 with a creatinine of 2.9 and the patient is producing urine output. Urine drug screen was positive for cocaine and benzodiazepine. Afebrile. No other significant events noted overnight. Neurology on the case. Estimated downtime was around 17 and later on 30 minutes during which the patient received CPR. As such, high likelihood for an underlying anoxic encephalopathy. Patient was evaluated today on 06/08/2024, patient remains in the ICU, intubated and mechanically ventilated. He is on pressure control mode of mechanical ventilation, with PI of 20, TI of 0.9, FiO2 50% and I cut it down to 40% rate of 12 and PEEP of 5 ABG showed a pO2 of 116 pCO2 39 pH of 7.50. Looking back at the history, patient had cardiac arrest x 2 CPR for 17 minutes on 06/06. He may have sustained some anoxic brain injury patient is on vital AF at 40 cc/h IV fluid at 100 cc/h which I increased to 150 cc/h remains on Versed at 1 mg/h and propofol at 50 mcg/kg/min. Patient is on Unasyn, his CPK is improving but nonetheless remains over 20,000. Patient is not requiring any pressors he is on Cleviprex at 8 g/h. Show reviewed WBC count is 12.4 hemoglobin 13.4 electrolytes are normal bicarb is 33 BUN is 54 creatinine 3.12 CPK is 20,686. Her enzymes are also elevated with AST of 1151 and ALT of 818 Objective - Vital Signs Vital signs: Vital Signs Temp 98.5 F 06/08/24 12:00 Pulse 111 H 06/08/24 13:00 Resp 21 06/08/24 13:00 BP 120/66 06/08/24 13:00 Pulse Ox 97 06/08/24 13:00 FiO2 40 06/08/24 12:00 Intake & Output 06/07/24 06/08/24 06/08/24 18:59 06:59 18:59 Intake Total 2693.127 2193.446 1386.860 Output Total 998 1095 485 Balance 8641.137 5805.446 901.860 Weight 70 kg Intake: IV 2130 1580 1010 0.9% NS KVO 80 130 60 Ampicillin-Sulbactam 1.5 100 50 gm In Sodium Chloride 0.9 % 50 ml @ 100 mls/hr IVPB Q8HR [facility] Rx#:[id number] Calcium Gluconate in NaCl 100 2 gm In Saline 1 100ml. bag @ 100 mls/hr IVPB ONCE ONE Rx#:[id number] Dextrose 5% in Water 1, 450 000 ml @ 150 mls/hr IV . Q7H40M [facility] with Sodium Bicarb (1 Meq/ml) 150 ml Rx#:[id number] Potassium Chloride 20 meq 300 50 100 In Water For Injection 1 100ml.bag @ 50 mls/hr IVPB ONCE ONE Rx#: [id number] Sodium Chloride 0.45% 1, 1000 1300 100 000 ml @ 100 mls/hr IV . Q10H [facility] Rx#:[id number] Sodium Chloride 0.9% 1, 750 000 ml @ 150 mls/hr IV . Q6H40M [facility] Rx#:[id number] Thiamine 250 mg In Sodium 100 50 Chloride 0.9% 50 ml @ 100 mls/hr IVPB TID [facility] Rx#:[id number] Intake, IV Titration 453.127 363.446 196.860 Amount Clevidipine Butyrate 25 81.333 118.199 84.100 mg In Empty Bag 1 bag @ 1 MG/HR 2 mls/hr IV .Q24H [facility] Rx#:[id number] Midazolam HCl 200 mg In 95.658 5.95 5.292 Sodium Chloride 0.9% 60 ml @ 1 MG/HR 0.5 mls/hr IV .Q24H [facility] Rx#: [id number] propofoL 1,000 mg In 276.136 239.297 107.468 Empty Bag 1 bag @ 60 MCG/ KG/MIN 23.678 mls/hr IV . Q4H14M [facility] Rx#:[id number] Oral 60 Tube Feeding 50 130 60 Other 60 120 60 Output: Chest Tube Drainage 3 0 Chest Tube Right Lateral 3 0 Chest Urine 995 1095 485 Other: Voiding Method Indwelling Catheter Indwelling Catheter Indwelling Catheter # Bowel Movements 0 0 ABP, PAP, CO, CI - Last Documented Arterial Blood Pressure 153/53 - Exam General: Reveals 64-year-old -[place] male, intubated, mechanically ventilated, unresponsive to any stimuli. Head exam atraumatic, normocephalic. Endotracheal tube and orogastric tube are intact. Neck supple no neck masses no JVD, right IJ triple-lumen catheter in place Lung: Diminished breath sound bilaterally right-sided chest tube in place, continues to have some air leak. Abdominal exam flat soft nontender no megaly no rebound or guarding, positive bowel sounds Examination no clubbing edema or cyanosis, good pulses bilaterally. Examination of the skin revealed no evidence of significant rashes Neuro:Limited. Could not be assessed mostly because of the patient on propofol and Versed Upon manually opening his eyes patient had twitching of his eyes but when the eyes are closed there is no twitching. Pupils remain pinpoint. Motor: Unable to assess - Labs CBC & Chem 7: 06/08/24 05:12 06/08/24 12:54 Labs: Abnormal Lab Results - Last 24 Hours (Table) 06/07/24 06/07/24 06/07/24 Range/Units 15:42 16:21 16:30 WBC (3.8-10.6) k/uL RBC (4.30-5.90) m/uL Neutrophils # (1.3-7.7) k/uL Lymphocytes # (1.0-4.8) k/uL ABG pH 7.53 H (7.35-7.45) ABG pO2 122 H (83-108) mmHg ABG HCO3 33 H (21-25) mmol/L ABG Total CO2 34 H (19-24) mmol/L ABG O2 Saturation 98.9 H (94-97) % Carbon Dioxide 35 H (22-30) mmol/L BUN 57 H (9-20) mg/dL Creatinine 3.00 H (0.66-1.25) mg/dL Glucose 119 H (74-99) mg/dL POC Glucose (mg/dL) (70-110) mg/dL Calcium 6.2 L* (8.4-10.2) mg/dL Ionized Calcium Raya (4.5-5.3) mg/dL AST (17-59) U/L ALT (4-49) U/L Creatine Kinase 50097 H* (55-170) U/L Total Protein (6.3-8.2) g/dL Albumin (3.5-5.0) g/dL Urine Protein (Negative) Urine Blood (Negative) Ur Leukocyte Esterase (Negative) Urine WBC (0-5) /hpf Urine Bacteria (None) /hpf Urine Mucus (None) /hpf Urine Yeast (Budding) (None) /hpf 06/08/24 06/08/24 06/08/24 Range/Units 00:19 05:12 05:12 WBC 12.4 H (3.8-10.6) k/uL RBC 4.27 L (4.30-5.90) m/uL Neutrophils # 10.9 H (1.3-7.7) k/uL Lymphocytes # 0.7 L (1.0-4.8) k/uL ABG pH (7.35-7.45) ABG pO2 (83-108) mmHg ABG HCO3 (21-25) mmol/L ABG Total CO2 (19-24) mmol/L ABG O2 Saturation (94-97) % Carbon Dioxide 33 H (22-30) mmol/L BUN 54 H (9-20) mg/dL Creatinine 3.12 H (0.66-1.25) mg/dL Glucose 135 H (74-99) mg/dL POC Glucose (mg/dL) 133 H (70-110) mg/dL Calcium 6.9 L (8.4-10.2) mg/dL Ionized Calcium Raya (4.5-5.3) mg/dL AST 1151 H (17-59) U/L ALT 818 H (4-49) U/L Creatine Kinase 07501 H* (55-170) U/L Total Protein 6.0 L (6.3-8.2) g/dL Albumin 2.8 L (3.5-5.0) g/dL Urine Protein (Negative) Urine Blood (Negative) Ur Leukocyte Esterase (Negative) Urine WBC (0-5) /hpf Urine Bacteria (None) /hpf Urine Mucus (None) /hpf Urine Yeast (Budding) (None) /hpf 06/08/24 06/08/24 06/08/24 Range/Units 05:12 05:28 09:40 WBC (3.8-10.6) k/uL RBC (4.30-5.90) m/uL Neutrophils # (1.3-7.7) k/uL Lymphocytes # (1.0-4.8) k/uL ABG pH 7.50 H (7.35-7.45) ABG pO2 116 H (83-108) mmHg ABG HCO3 31 H (21-25) mmol/L ABG Total CO2 32 H (19-24) mmol/L ABG O2 Saturation 98.8 H (94-97) % Carbon Dioxide (22-30) mmol/L BUN (9-20) mg/dL Creatinine (0.66-1.25) mg/dL Glucose (74-99) mg/dL POC Glucose (mg/dL) (70-110) mg/dL Calcium (8.4-10.2) mg/dL Ionized Calcium Raya 3.8 L (4.5-5.3) mg/dL AST (17-59) U/L ALT (4-49) U/L Creatine Kinase (55-170) U/L Total Protein (6.3-8.2) g/dL Albumin (3.5-5.0) g/dL Urine Protein 1+ H (Negative) Urine Blood Moderate H (Negative) Ur Leukocyte Esterase Trace H (Negative) Urine WBC 10 H (0-5) /hpf Urine Bacteria Rare H (None) /hpf Urine Mucus Rare H (None) /hpf Urine Yeast (Budding) Few H (None) /hpf 06/08/24 Range/Units 11:48 WBC (3.8-10.6) k/uL RBC (4.30-5.90) m/uL Neutrophils # (1.3-7.7) k/uL Lymphocytes # (1.0-4.8) k/uL ABG pH (7.35-7.45) ABG pO2 (83-108) mmHg ABG HCO3 (21-25) mmol/L ABG Total CO2 (19-24) mmol/L ABG O2 Saturation (94-97) % Carbon Dioxide (22-30) mmol/L BUN (9-20) mg/dL Creatinine (0.66-1.25) mg/dL Glucose (74-99) mg/dL POC Glucose (mg/dL) 137 H (70-110) mg/dL Calcium (8.4-10.2) mg/dL Ionized Calcium Raya (4.5-5.3) mg/dL AST (17-59) U/L ALT (4-49) U/L Creatine Kinase (55-170) U/L Total Protein (6.3-8.2) g/dL Albumin (3.5-5.0) g/dL Urine Protein (Negative) Urine Blood (Negative) Ur Leukocyte Esterase (Negative) Urine WBC (0-5) /hpf Urine Bacteria (None) /hpf Urine Mucus (None) /hpf Urine Yeast (Budding) (None) /hpf Microbiology - Last 24 Hours (Table) 06/06/24 10:08 Urine Culture - Final Urine,Voided 06/06/24 15:24 Blood Culture - Preliminary Blood 06/06/24 05:48 Gram Stain - Preliminary Sputum Sputum Culture - Preliminary Assessment and Plan Assessment: Impression: Acute cardiopulmonary arrest. Exact cause is not clear. Prolonged downtime, mostly over 17-minute this could have been related to an acute drug overdose as the patient had to stop breathing and subsequently went into cardiopulmonary arrest. ST segment elevations with normal coronaries based on the coronary angiogram, echocardiogram was completed and the patient has a normal LV function. Acute unresponsiveness, postcardiac arrest and the patient had a negative CAT scan of the brain. Acute kidney injury, suspect acute rhabdomyolysis and acute tubular necrosis Acute respiratory failure, nonhypoxic, hypercapnic, currently intubated on mechanical ventilator Right-sided pneumothorax likely related to CPR or right IJ line placement Polysubstance abuse including cocaine, heroin and alcoholism Acute metabolic encephalopathy Acute rhabdomyolysis Abnormal LFTs could be related to alcoholism. Possible anoxic brain injury related to prolonged downtime from cardiopulmonary arrest Recommendation: Continue ventilatory support Titrate sedation down and assess mental status with daily interruption of sedation/sedation holidays. Continue IV fluids at 150 cc/h and monitor renal profile Continue Unasyn for presumptive aspiration pneumonia Continue to monitor CPK and renal profile as well as liver status Ultrasound of the kidneys showed no hydronephrosis GI and DVT prophylaxis Nutritional support/enteral feeding Hemodynamic support if felt necessary Patient remains critically ill, and will continue to follow Critical care time is over 30-minute Time with Patient: Greater than 30
[2024-06-08 18:08] LABS: Glucose,Whole Blood 126 mg/dL (70-110)
[2024-06-08 21:37] LABS: Complement C3 61.6 mg/dL (80.0-207.0)
[2024-06-08 23:33] LABS: Glucose,Whole Blood 108 mg/dL (70-110)
[2024-06-09] MEDS: MORPHINE SULFATE 2 MG/ML SYRINGE IV PRN (01:36)
[2024-06-09 04:42] LABS: ABG HCO3 25 mmol/L (21-25); ABG Oxygen Saturation 96.5 % (94-97); ABG PCO2 32 mmHg (35-45); ABG PO2 82 mmHg (83-108); ABG TCO2 26 mmol/L (19-24); Allen Test Performed? Yes
[2024-06-09 05:23] LABS: Basophils % (A) 0 %; Eosinophils # (A) 0.1 k/uL (0-0.7); Eosinophils % (A) 0 %; HCT 37.3 % (39.0-53.0); HGB 12.1 gm/dL (13.0-17.5); Lymphocytes # (A) 0.4 k/uL (1.0-4.8); Lymphocytes % (A) 3 %; MCH 31.7 pg (25.0-35.0); MCHC 32.4 g/dL (31.0-37.0); Mean Platelet Volume 8.3; Monocytes # (A) 0.7 k/uL (0-1.0); Monocytes % (A) 5 %; Neutrophils # (A) 13.1 k/uL (1.3-7.7); Neutrophils % (A) 91 %; Platelet Count 188 k/uL (150-450); RDW 12.8 % (11.5-15.5); WBC 14.3 k/uL (3.8-10.6)
[2024-06-09 05:48] LABS: ALT 471 U/L (4-49); AST 486 U/L (17-59); African American GFR (CKD) 27 (>60 ml/min/1.73 sqM); Albumin 2.6 g/dL (3.5-5.0); Alkaline Phosphatase 54 U/L (38-126); Anion Gap 7 mmol/L; Blood Urea Nitrogen 48 mg/dL (9-20); Carbon Dioxide 25 mmol/L (22-30); Chloride 111 mmol/L (98-107); Glucose 166 mg/dL (74-99); Non-African American GFR(CKD) 23 (>60 ml/min/1.73 sqM); Potassium 3.4 mmol/L (3.5-5.1); Sodium 143 mmol/L (137-145); Total Bilirubin 1.1 mg/dL (0.2-1.3); Total Protein 5.6 g/dL (6.3-8.2)
[2024-06-09] MEDS: POTASSIUM CHLORIDE 20 MEQ in WATER FOR INJECTION 1 100ML.BAG IVPB SCH (06:33)
--- NOTE | 2024-06-09 07:45 | P.PN ---
Subjective Progress Note Date: 06/09/24 Principal diagnosis: Hypertension emergency This is a 64-year-old -[place] gentleman with a past medical history significant for history of alcohol use and drug use who was admitted to the hospital after he had cardiopulmonary arrest. Subsequently the EKG showed finding concerning for acute coronary syndrome. He underwent a heart catheterization which revealed no evidence of obstructive coronary artery disease. Subsequently the patient was intubated and placed on mechanical ventilation. June 08, 2024 He was seen and evaluated. He continues to be sedated. He continues to be on mechanical ventilation. The pressure remains elevated and currently he is on clevidipine IV. Hydralazine was initiated earlier today. Am going to increase the dose of hydralazine and add clonidine patches to the current medical regimen. The echo showed preserved LV systolic function with severe hypertensive heart disease. The examination is remarkable for regular rhythm with a systolic murmur at the right upper sternal border and clear breathing sounds bilaterally and no edema was noted in the lower extremities. Please note that the patient was also in renal failure. June 09, 2024 The patient was seen and evaluated this morning. He continues to be intubated on mechanical ventilation. The pressure remains elevated and he was started on Cleviprex. Meanwhile I am going to increase the dose of hydralazine to 100 mg p.o. 4 times daily. He is going through what is seems to be withdrawal which could be contributing to the elevated blood pressure. The examination is remarkable for regular rhythm with a systolic murmur at the right and left upper sternal border with clear breathing sounds bilaterally and no edema was noted Assessment Cardiopulmonary arrest Acute coronary syndrome Hypertension emergency Renal failure History of drug abuse History of alcohol use Plan Try to wean the patient from clevidipine Increase the dose of hydralazine Monitor the kidney function and electrolytes Follow-up with the patient Objective - Vital Signs Vital signs: Vital Signs Temp 98.4 F 06/09/24 04:00 Pulse 113 H 06/09/24 07:00 Resp 13 06/09/24 07:00 BP 135/63 06/09/24 07:00 Pulse Ox 99 06/09/24 07:00 FiO2 40 06/09/24 04:13 Intake & Output 06/08/24 06/09/24 06/09/24 18:59 06:59 18:59 Intake Total 2357.446 3084.552 10.852 Output Total 970 1170 Balance 0828.940 9501.552 10.852 Weight 70 kg 70.5 kg Intake: IV 1710 2210 0.9% NS KVO 110 120 Ampicillin-Sulbactam 1.5 50 gm In Sodium Chloride 0.9 % 50 ml @ 100 mls/hr IVPB Q8HR [facility] Rx#:[id number] Potassium Chloride 20 meq 100 50 In Water For Injection 1 100ml.bag @ 50 mls/hr IVPB ONCE ONE Rx#: [id number] Sodium Chloride 0.45% 1, 100 000 ml @ 100 mls/hr IV . Q10H [facility] Rx#:[id number] Sodium Chloride 0.9% 1, 1400 1940 000 ml @ 150 mls/hr IV . Q6H40M [facility] Rx#:[id number] Thiamine 250 mg In Sodium 50 Chloride 0.9% 50 ml @ 100 mls/hr IVPB TID [facility] Rx#:[id number] Intake, IV Titration 277.446 355.552 10.852 Amount Clevidipine Butyrate 25 129.333 144.4 mg In Empty Bag 1 bag @ 1 MG/HR 2 mls/hr IV .Q24H [facility] Rx#:[id number] Midazolam HCl 200 mg In 5.292 Sodium Chloride 0.9% 60 ml @ 1 MG/HR 0.5 mls/hr IV .Q24H [facility] Rx#: [id number] propofoL 1,000 mg In 142.821 211.152 10.852 Empty Bag 1 bag @ 60 MCG/ KG/MIN 23.678 mls/hr IV . Q4H14M [facility] Rx#:[id number] Oral 120 Tube Feeding 160 399 Other 90 120 Output: Chest Tube Drainage 10 70 Chest Tube Right Lateral 10 70 Chest Urine 960 1100 Other: Voiding Method Indwelling Catheter ABP, PAP, CO, CI - Last Documented Arterial Blood Pressure 157/53 - Labs CBC & Chem 7: 06/09/24 04:50 06/09/24 04:50 Labs: Abnormal Lab Results - Last 24 Hours (Table) 06/08/24 06/08/24 06/08/24 Range/Units 05:12 09:40 11:48 WBC (3.8-10.6) k/uL RBC (4.30-5.90) m/uL Hgb (13.0-17.5) gm/dL Hct (39.0-53.0) % Neutrophils # (1.3-7.7) k/uL Lymphocytes # (1.0-4.8) k/uL ABG pH (7.35-7.45) ABG pCO2 (35-45) mmHg ABG pO2 (83-108) mmHg ABG Total CO2 (19-24) mmol/L Potassium (3.5-5.1) mmol/L Chloride (98-107) mmol/L BUN (9-20) mg/dL Creatinine (0.66-1.25) mg/dL Glucose (74-99) mg/dL POC Glucose (mg/dL) 137 H (70-110) mg/dL Calcium (8.4-10.2) mg/dL Ionized Calcium Raya 3.8 L (4.5-5.3) mg/dL AST (17-59) U/L ALT (4-49) U/L Total Protein (6.3-8.2) g/dL Albumin (3.5-5.0) g/dL Urine Protein 1+ H (Negative) Urine Blood Moderate H (Negative) Ur Leukocyte Esterase Trace H (Negative) Urine WBC 10 H (0-5) /hpf Urine Bacteria Rare H (None) /hpf Urine Mucus Rare H (None) /hpf Urine Yeast (Budding) Few H (None) /hpf Complement C3 (80.0-207.0) mg/dL 06/08/24 06/08/24 06/09/24 Range/Units 12:54 18:05 04:44 WBC (3.8-10.6) k/uL RBC (4.30-5.90) m/uL Hgb (13.0-17.5) gm/dL Hct (39.0-53.0) % Neutrophils # (1.3-7.7) k/uL Lymphocytes # (1.0-4.8) k/uL ABG pH 7.50 H (7.35-7.45) ABG pCO2 32 L (35-45) mmHg ABG pO2 82 L (83-108) mmHg ABG Total CO2 26 H (19-24) mmol/L Potassium (3.5-5.1) mmol/L Chloride (98-107) mmol/L BUN (9-20) mg/dL Creatinine (0.66-1.25) mg/dL Glucose (74-99) mg/dL POC Glucose (mg/dL) 126 H (70-110) mg/dL Calcium (8.4-10.2) mg/dL Ionized Calcium Raya (4.5-5.3) mg/dL AST (17-59) U/L ALT (4-49) U/L Total Protein (6.3-8.2) g/dL Albumin (3.5-5.0) g/dL Urine Protein (Negative) Urine Blood (Negative) Ur Leukocyte Esterase (Negative) Urine WBC (0-5) /hpf Urine Bacteria (None) /hpf Urine Mucus (None) /hpf Urine Yeast (Budding) (None) /hpf Complement C3 61.6 L (80.0-207.0) mg/dL 06/09/24 06/09/24 Range/Units 04:50 04:50 WBC 14.3 H (3.8-10.6) k/uL RBC 3.80 L (4.30-5.90) m/uL Hgb 12.1 L (13.0-17.5) gm/dL Hct 37.3 L (39.0-53.0) % Neutrophils # 13.1 H (1.3-7.7) k/uL Lymphocytes # 0.4 L (1.0-4.8) k/uL ABG pH (7.35-7.45) ABG pCO2 (35-45) mmHg ABG pO2 (83-108) mmHg ABG Total CO2 (19-24) mmol/L Potassium 3.4 L (3.5-5.1) mmol/L Chloride 111 H (98-107) mmol/L BUN 48 H (9-20) mg/dL Creatinine 2.71 H (0.66-1.25) mg/dL Glucose 166 H (74-99) mg/dL POC Glucose (mg/dL) (70-110) mg/dL Calcium 7.0 L (8.4-10.2) mg/dL Ionized Calcium Raya (4.5-5.3) mg/dL AST 486 H (17-59) U/L ALT 471 H (4-49) U/L Total Protein 5.6 L (6.3-8.2) g/dL Albumin 2.6 L (3.5-5.0) g/dL Urine Protein (Negative) Urine Blood (Negative) Ur Leukocyte Esterase (Negative) Urine WBC (0-5) /hpf Urine Bacteria (None) /hpf Urine Mucus (None) /hpf Urine Yeast (Budding) (None) /hpf Complement C3 (80.0-207.0) mg/dL Microbiology - Last 24 Hours (Table) 06/06/24 15:24 Blood Culture - Preliminary Blood 06/06/24 10:08 Urine Culture - Final Urine,Voided
[2024-06-09] MEDS: hydrALAZINE HCL 50 MG TAB PO SCH (08:26)
--- NOTE | 2024-06-09 08:27 | XR ---
EXAMINATION TYPE: XR chest 1V portable DATE OF EXAM: 06/09/2024 COMPARISON: 06/08/2024 HISTORY: SOB, Follow Up FINDINGS: Indwelling tubes and catheters are unchanged. No change in bibasilar opacities. Stable appearance of the cardio-mediastinal structures at this time. Pleural effusion unchanged. IMPRESSION: 1. Stable portable chest. Clinical correlation and follow up until resolution is recommended.
[2024-06-09] MEDS: LORazepam 2 MG/ML INJ IV PRN (10:59)
--- NOTE | 2024-06-09 11:08 | P.PN ---
Subjective Patient is seen in follow-up for acute kidney injury. Renal function improved. Nonoliguric. Receiving tube feeds. CK level trending down. On IV fluids. Vital signs are stable. General: Resting in bed. HEENT: Intubated. LUNGS: Scattered rhonchi. HEART: Rate and Rhythm are regular. ABDOMEN: No distention. EXTREMITITES: No edema. Objective - Vital Signs Vital signs: Vital Signs Temp 99.8 F H 06/09/24 08:00 Pulse 113 H 06/09/24 09:00 Resp 14 06/09/24 09:00 BP 139/67 06/09/24 09:00 Pulse Ox 100 06/09/24 09:00 FiO2 40 06/09/24 08:00 Intake & Output 06/08/24 06/09/24 06/09/24 18:59 06:59 18:59 Intake Total 2357.446 3084.552 122.445 Output Total 970 1170 Balance 1347.305 9121.552 122.445 Weight 70 kg 70.5 kg Intake: IV 1710 2210 0.9% NS KVO 110 120 Ampicillin-Sulbactam 1.5 50 gm In Sodium Chloride 0.9 % 50 ml @ 100 mls/hr IVPB Q8HR [facility] Rx#:[id number] Potassium Chloride 20 meq 100 50 In Water For Injection 1 100ml.bag @ 50 mls/hr IVPB ONCE ONE Rx#: [id number] Sodium Chloride 0.45% 1, 100 000 ml @ 100 mls/hr IV . Q10H [facility] Rx#:[id number] Sodium Chloride 0.9% 1, 1400 1940 000 ml @ 150 mls/hr IV . Q6H40M [facility] Rx#:[id number] Thiamine 250 mg In Sodium 50 Chloride 0.9% 50 ml @ 100 mls/hr IVPB TID [facility] Rx#:[id number] Intake, IV Titration 277.446 355.552 122.445 Amount Clevidipine Butyrate 25 129.333 144.4 52.4 mg In Empty Bag 1 bag @ 1 MG/HR 2 mls/hr IV .Q24H [facility] Rx#:[id number] Midazolam HCl 200 mg In 5.292 Sodium Chloride 0.9% 60 ml @ 1 MG/HR 0.5 mls/hr IV .Q24H [facility] Rx#: [id number] propofoL 1,000 mg In 142.821 211.152 70.045 Empty Bag 1 bag @ 60 MCG/ KG/MIN 23.678 mls/hr IV . Q4H14M [facility] Rx#:[id number] Oral 120 Tube Feeding 160 399 Other 90 120 Output: Chest Tube Drainage 10 70 Chest Tube Right Lateral 10 70 Chest Urine 960 1100 Other: Voiding Method Indwelling Catheter ABP, PAP, CO, CI - Last Documented Arterial Blood Pressure 138/46 - Labs CBC & Chem 7: 06/09/24 04:50 06/09/24 04:50 Labs: Abnormal Lab Results - Last 24 Hours (Table) 06/08/24 06/08/24 06/08/24 Range/Units 05:12 11:48 12:54 WBC (3.8-10.6) k/uL RBC (4.30-5.90) m/uL Hgb (13.0-17.5) gm/dL Hct (39.0-53.0) % Neutrophils # (1.3-7.7) k/uL Lymphocytes # (1.0-4.8) k/uL ABG pH (7.35-7.45) ABG pCO2 (35-45) mmHg ABG pO2 (83-108) mmHg ABG Total CO2 (19-24) mmol/L Potassium (3.5-5.1) mmol/L Chloride (98-107) mmol/L BUN (9-20) mg/dL Creatinine (0.66-1.25) mg/dL Glucose (74-99) mg/dL POC Glucose (mg/dL) 137 H (70-110) mg/dL Calcium (8.4-10.2) mg/dL Ionized Calcium Raya 3.8 L (4.5-5.3) mg/dL AST (17-59) U/L ALT (4-49) U/L Creatine Kinase (55-170) U/L Total Protein (6.3-8.2) g/dL Total Protein (PEP) (6.2-8.2) g/dL Albumin (3.5-5.0) g/dL Complement C3 61.6 L (80.0-207.0) mg/dL 06/08/24 06/08/24 06/09/24 Range/Units 12:54 18:05 04:44 WBC (3.8-10.6) k/uL RBC (4.30-5.90) m/uL Hgb (13.0-17.5) gm/dL Hct (39.0-53.0) % Neutrophils # (1.3-7.7) k/uL Lymphocytes # (1.0-4.8) k/uL ABG pH 7.50 H (7.35-7.45) ABG pCO2 32 L (35-45) mmHg ABG pO2 82 L (83-108) mmHg ABG Total CO2 26 H (19-24) mmol/L Potassium (3.5-5.1) mmol/L Chloride (98-107) mmol/L BUN (9-20) mg/dL Creatinine (0.66-1.25) mg/dL Glucose (74-99) mg/dL POC Glucose (mg/dL) 126 H (70-110) mg/dL Calcium (8.4-10.2) mg/dL Ionized Calcium Raya (4.5-5.3) mg/dL AST (17-59) U/L ALT (4-49) U/L Creatine Kinase (55-170) U/L Total Protein (6.3-8.2) g/dL Total Protein (PEP) 6.0 L (6.2-8.2) g/dL Albumin (3.5-5.0) g/dL Complement C3 (80.0-207.0) mg/dL 06/09/24 06/09/24 06/09/24 Range/Units 04:50 04:50 04:50 WBC 14.3 H (3.8-10.6) k/uL RBC 3.80 L (4.30-5.90) m/uL Hgb 12.1 L (13.0-17.5) gm/dL Hct 37.3 L (39.0-53.0) % Neutrophils # 13.1 H (1.3-7.7) k/uL Lymphocytes # 0.4 L (1.0-4.8) k/uL ABG pH (7.35-7.45) ABG pCO2 (35-45) mmHg ABG pO2 (83-108) mmHg ABG Total CO2 (19-24) mmol/L Potassium 3.4 L (3.5-5.1) mmol/L Chloride 111 H (98-107) mmol/L BUN 48 H (9-20) mg/dL Creatinine 2.71 H (0.66-1.25) mg/dL Glucose 166 H (74-99) mg/dL POC Glucose (mg/dL) (70-110) mg/dL Calcium 7.0 L (8.4-10.2) mg/dL Ionized Calcium Raya (4.5-5.3) mg/dL AST 486 H (17-59) U/L ALT 471 H (4-49) U/L Creatine Kinase 15556 H* (55-170) U/L Total Protein 5.6 L (6.3-8.2) g/dL Total Protein (PEP) (6.2-8.2) g/dL Albumin 2.6 L (3.5-5.0) g/dL Complement C3 (80.0-207.0) mg/dL Microbiology - Last 24 Hours (Table) 06/06/24 05:48 Gram Stain - Final Sputum Sputum Culture - Final Haemophilus parainfluenzae 06/06/24 15:24 Blood Culture - Preliminary Blood 06/06/24 10:08 Urine Culture - Final Urine,Voided Assessment and Plan Plan: Assessment: 1. Acute kidney injury secondary to ATN secondary to cardiac arrest and rhabdomyolysis. Unknown baseline renal function. Creatinine 3.67 on admission and 2.7 today. No hydronephrosis noted on kidney ultrasound. 2. Proteinuria and hematuria. Questionable GN. Patient does have history of hepatitis C. Also cocaine abuse which can cause vasculitis. Repeat UA shows 1+ protein with only 2 RBCs. 3. Rhabdomyolysis. CK levels trending down. 4. Status post cardiac arrest. 5. Acute PA status postcardiac catheterization with no intervention. Likely related to cocaine abuse. 6. Metabolic acidosis secondary to acute kidney injury. Resolved. 7. Hyperphosphatemia secondary to acute kidney injury and rhabdomyolysis. Improved. Phosphorus level 5.0 dated June 07, 2024. Plan: Maintain normal saline. Continue to monitor CK levels. Follow-up serologies. C3 low. Hep C IgG antibody reactive. Rest pending. Continue to monitor renal function and urine output. Potassium replaced.
[2024-06-09 11:27] LABS: Glucose,Whole Blood 120 mg/dL (70-110)
--- NOTE | 2024-06-09 11:48 | P.PN ---
Subjective Progress Note Date: 06/09/24 64-year-old male with history of polysubstance abuse including heroin, cocaine, alcohol presenting from [place] for witnessed cardiac arrest on 06/06. Unknown downtime. Per report, patient possibly had seizure-like activity after having a cardiac arrest. He had multiple rounds of CPR and was intubated in the field. After getting to the hospital, he was found to be bradycardic for which he was given atropine. EKG concerning for anterior STEMI with ST elevations in aVR and V1, patient taken directly to [employer], coronary arteries are patent. Patient now in the ICU. Initial vitals BP 61/38, mechanically ventilated, RR 16, HR 119, T 96.8F. CBC, Coag panel, CMP significant for WBC 13.5, Hct 54.3, MCV 101.2, PT 13.1, INR 1.2, bicarb 14, BUN 41, Cr 3.67. glu 163, Ca 10.5, AST 499, ALT 171, total protein 8.9. Lactic acid 11.4. Phos 14.4. Mag 3.4. Troponin 0.191. BNP 74511. TSH 9.22. CXR no acute findings, ET tube, central line, NG tube in place. ICU, nephrology, neurology, cardiology on board. Echo EF 65-70% severe LV thickness. CXR showed right PTX, status post chest tube on 06/06. Brain CT negative. EEG mod-severe encephalopathy. 06/08 Patient was seen and examined. Intubated. Clevidipine drip at 8mg/hr. Antibiotics include Unasyn 3g IV TID. CBC, CMP significant for WBC 12.4, RBC 4.2 7, bicarb 33, BUN 54, Cr 3.12, glu 135, Ca 6.9, AST 1151, ALT 818, alb 2.8. CPK 72681. ABG pH 7.5, pO2 116, pCO2 39 FiO2 50. CXR shows R chest tube with no PTX, ET tube, NG tube, central venous catheter in place. 06/09 Patient was seen and examined. Intubated. Clevidipine drip at 6mg/hr. Cardiology started Clonidine patch and increased Hydralazine. Antibiotics include Unasyn 3g IV TID. CBC, CMP significant for WBC 14.3, RBC 3.8, Hg 12.1, Hct 37.3, K 3.4, Cl 111, BUN 48, Cr 2.71, glu 166, Ca 7, AST 486, ALT 471, alb 2.6. ABG pH 7.5, pO2 82, pCO2 32 FiO2 40. CXR shows R chest tube with no PTX, ET tube, NG tube, central venous catheter in place. Tmax 100.3F overnight, BP 131/53, HR 106, RR 13, 99% FiO2 50. General: Intubated Derm: warm, dry Head: atraumatic, normocephalic, symmetric Eyes: no lid lag, anicteric sclera Mouth: no lip lesion, mucus membranes moist Cardiovascular: S1 S2 tachy. + systolic murmurs, rubs or gallops. No LE edema Lungs: Decreased BS bilaterally, no accessory muscle use Ext: No muscle atrophy Neuro: Intubated Psych: Intubated Right chest tube in place Based on my assessment of this patient, this patient meets a high complexity level of care. Hypertensive emergency: Clevidipine drip at 7mg/hr. Hydralazine 100 mg PO QID. Clonidine 0.2 mg patch Qweekly. [id number] cardiac arrest: Unknown etiology. Possible related to cocaine use. Cath negative. Concern for PE less likely. Cardiology on board. Acute anterior STEMI Acute metabolic encephalopathy: Concern for anxoic brain injury. CT brain negative. EEG mod-severe encephalopathy. Ammonia negative. Seizure like activity witnessed. Vimpat 50 mg IV BID, Keppra 500 mg IV BID. Neurology on board. Acute respiratory failure: Vent managed by Pulmonary. Right pneumothorax status post chest tube 06/06 Acute rhabdomyolysis: NS at 150 cc/hr. Trend CPK. Monitor renal function. SIRS: Empirically covered with Unasyn 3g IV TID. Transaminitis likely shock liver with Hep B + C positive. Nonoliguric JAYASHREE: IV hydration as above. Nephrology on board. History of polysubstance abuse: UDS + benzo + cocaine. Metabolic alkalosis along with respiratory alkalosis Euthyroid sick syndrome: TSH 9.22. Resolved: Cardiogenic versus hypovolemic shock, high AG met acidosis CODE STATUS: FULL CODE DVT Prophylaxis: Heparin SQ GI Prophylaxis: Protonix IV Designated medical POA if patient is not able to make medical decisions for themselves: I have reviewed the following principal consultant notes: Pulmonary, Cardiology, Neurology, Nephrology I have reviewed the results of the following tests: CBC, CMP, ABG I have ordered the following tests: I have discussed the care of this patient with the following independent historian: I have independently interpreted the following test below: CXR. I have discussed the management of this patient with the following physician: Dr. Post Objective - Vital Signs Vital signs: Vital Signs Temp 98.4 F 06/09/24 04:00 Pulse 113 H 06/09/24 07:00 Resp 13 06/09/24 07:00 BP 135/63 06/09/24 07:00 Pulse Ox 99 06/09/24 07:00 FiO2 40 06/09/24 07:58 Intake & Output 06/08/24 06/09/24 06/09/24 18:59 06:59 18:59 Intake Total 2357.446 3084.552 10.852 Output Total 970 1170 Balance 7751.314 5091.552 10.852 Weight 70 kg 70.5 kg Intake: IV 1710 2210 0.9% NS KVO 110 120 Ampicillin-Sulbactam 1.5 50 gm In Sodium Chloride 0.9 % 50 ml @ 100 mls/hr IVPB Q8HR [facility] Rx#:[id number] Potassium Chloride 20 meq 100 50 In Water For Injection 1 100ml.bag @ 50 mls/hr IVPB ONCE ONE Rx#: [id number] Sodium Chloride 0.45% 1, 100 000 ml @ 100 mls/hr IV . Q10H [facility] Rx#:[id number] Sodium Chloride 0.9% 1, 1400 1940 000 ml @ 150 mls/hr IV . Q6H40M [facility] Rx#:[id number] Thiamine 250 mg In Sodium 50 Chloride 0.9% 50 ml @ 100 mls/hr IVPB TID [facility] Rx#:[id number] Intake, IV Titration 277.446 355.552 10.852 Amount Clevidipine Butyrate 25 129.333 144.4 mg In Empty Bag 1 bag @ 1 MG/HR 2 mls/hr IV .Q24H [facility] Rx#:[id number] Midazolam HCl 200 mg In 5.292 Sodium Chloride 0.9% 60 ml @ 1 MG/HR 0.5 mls/hr IV .Q24H [facility] Rx#: [id number] propofoL 1,000 mg In 142.821 211.152 10.852 Empty Bag 1 bag @ 60 MCG/ KG/MIN 23.678 mls/hr IV . Q4H14M [facility] Rx#:[id number] Oral 120 Tube Feeding 160 399 Other 90 120 Output: Chest Tube Drainage 10 70 Chest Tube Right Lateral 10 70 Chest Urine 960 1100 Other: Voiding Method Indwelling Catheter ABP, PAP, CO, CI - Last Documented Arterial Blood Pressure 157/53 - Labs CBC & Chem 7: 06/09/24 04:50 06/09/24 04:50 Labs: Abnormal Lab Results - Last 24 Hours (Table) 06/08/24 06/08/24 06/08/24 Range/Units 05:12 09:40 11:48 WBC (3.8-10.6) k/uL RBC (4.30-5.90) m/uL Hgb (13.0-17.5) gm/dL Hct (39.0-53.0) % Neutrophils # (1.3-7.7) k/uL Lymphocytes # (1.0-4.8) k/uL ABG pH (7.35-7.45) ABG pCO2 (35-45) mmHg ABG pO2 (83-108) mmHg ABG Total CO2 (19-24) mmol/L Potassium (3.5-5.1) mmol/L Chloride (98-107) mmol/L BUN (9-20) mg/dL Creatinine (0.66-1.25) mg/dL Glucose (74-99) mg/dL POC Glucose (mg/dL) 137 H (70-110) mg/dL Calcium (8.4-10.2) mg/dL Ionized Calcium Raya 3.8 L (4.5-5.3) mg/dL AST (17-59) U/L ALT (4-49) U/L Total Protein (6.3-8.2) g/dL Albumin (3.5-5.0) g/dL Urine Protein 1+ H (Negative) Urine Blood Moderate H (Negative) Ur Leukocyte Esterase Trace H (Negative) Urine WBC 10 H (0-5) /hpf Urine Bacteria Rare H (None) /hpf Urine Mucus Rare H (None) /hpf Urine Yeast (Budding) Few H (None) /hpf Complement C3 (80.0-207.0) mg/dL 06/08/24 06/08/24 06/09/24 Range/Units 12:54 18:05 04:44 WBC (3.8-10.6) k/uL RBC (4.30-5.90) m/uL Hgb (13.0-17.5) gm/dL Hct (39.0-53.0) % Neutrophils # (1.3-7.7) k/uL Lymphocytes # (1.0-4.8) k/uL ABG pH 7.50 H (7.35-7.45) ABG pCO2 32 L (35-45) mmHg ABG pO2 82 L (83-108) mmHg ABG Total CO2 26 H (19-24) mmol/L Potassium (3.5-5.1) mmol/L Chloride (98-107) mmol/L BUN (9-20) mg/dL Creatinine (0.66-1.25) mg/dL Glucose (74-99) mg/dL POC Glucose (mg/dL) 126 H (70-110) mg/dL Calcium (8.4-10.2) mg/dL Ionized Calcium Raya (4.5-5.3) mg/dL AST (17-59) U/L ALT (4-49) U/L Total Protein (6.3-8.2) g/dL Albumin (3.5-5.0) g/dL Urine Protein (Negative) Urine Blood (Negative) Ur Leukocyte Esterase (Negative) Urine WBC (0-5) /hpf Urine Bacteria (None) /hpf Urine Mucus (None) /hpf Urine Yeast (Budding) (None) /hpf Complement C3 61.6 L (80.0-207.0) mg/dL 06/09/24 06/09/24 Range/Units 04:50 04:50 WBC 14.3 H (3.8-10.6) k/uL RBC 3.80 L (4.30-5.90) m/uL Hgb 12.1 L (13.0-17.5) gm/dL Hct 37.3 L (39.0-53.0) % Neutrophils # 13.1 H (1.3-7.7) k/uL Lymphocytes # 0.4 L (1.0-4.8) k/uL ABG pH (7.35-7.45) ABG pCO2 (35-45) mmHg ABG pO2 (83-108) mmHg ABG Total CO2 (19-24) mmol/L Potassium 3.4 L (3.5-5.1) mmol/L Chloride 111 H (98-107) mmol/L BUN 48 H (9-20) mg/dL Creatinine 2.71 H (0.66-1.25) mg/dL Glucose 166 H (74-99) mg/dL POC Glucose (mg/dL) (70-110) mg/dL Calcium 7.0 L (8.4-10.2) mg/dL Ionized Calcium Raya (4.5-5.3) mg/dL AST 486 H (17-59) U/L ALT 471 H (4-49) U/L Total Protein 5.6 L (6.3-8.2) g/dL Albumin 2.6 L (3.5-5.0) g/dL Urine Protein (Negative) Urine Blood (Negative) Ur Leukocyte Esterase (Negative) Urine WBC (0-5) /hpf Urine Bacteria (None) /hpf Urine Mucus (None) /hpf Urine Yeast (Budding) (None) /hpf Complement C3 (80.0-207.0) mg/dL Microbiology - Last 24 Hours (Table) 06/06/24 15:24 Blood Culture - Preliminary Blood 06/06/24 10:08 Urine Culture - Final Urine,Voided
[2024-06-09] MEDS ORDERED: DEXTROSE 50% SYRINGE 50 ML IVP PRN ×2 (13:00)
[2024-06-09 13:11] LABS: C-ANCA <1:20 Titer (<1:20)
--- NOTE | 2024-06-09 13:41 | P.PN ---
Subjective Progress Note Date: 06/09/24 I am following-up with patient and per the nurse, he is having body twitching and was given IV Ativan which helped. His IV versed has been stopped since yesterday and today about 45 minutes ago IV Propofol has been held. Objective - Vital Signs Vital signs: Vital Signs Temp 99.8 F H 06/09/24 08:00 Pulse 114 H 06/09/24 12:30 Resp 13 06/09/24 12:30 BP 140/67 06/09/24 12:30 Pulse Ox 100 06/09/24 12:30 FiO2 40 06/09/24 11:45 Intake & Output 06/08/24 06/09/24 06/09/24 18:59 06:59 18:59 Intake Total 2357.446 3084.552 1422.178 Output Total 970 1170 400 Balance 0416.732 0590.552 1022.178 Weight 70 kg 70.5 kg Intake: IV 1710 2210 790 0.9% NS KVO 110 120 40 Ampicillin-Sulbactam 1.5 50 gm In Sodium Chloride 0.9 % 50 ml @ 100 mls/hr IVPB Q8HR [facility] Rx#:[id number] Potassium Chloride 20 meq 100 50 In Water For Injection 1 100ml.bag @ 50 mls/hr IVPB ONCE ONE Rx#: [id number] Sodium Chloride 0.45% 1, 100 000 ml @ 100 mls/hr IV . Q10H [facility] Rx#:[id number] Sodium Chloride 0.9% 1, 1400 1940 750 000 ml @ 150 mls/hr IV . Q6H40M [facility] Rx#:[id number] Thiamine 250 mg In Sodium 50 Chloride 0.9% 50 ml @ 100 mls/hr IVPB TID [facility] Rx#:[id number] Intake, IV Titration 277.446 355.552 297.178 Amount Ampicillin-Sulbactam 1.5 50 gm In Sodium Chloride 0.9 % 50 ml @ 100 mls/hr IVPB Q8HR [facility] Rx#:[id number] Clevidipine Butyrate 25 129.333 144.4 77.133 mg In Empty Bag 1 bag @ 1 MG/HR 2 mls/hr IV .Q24H [facility] Rx#:[id number] Midazolam HCl 200 mg In 5.292 Sodium Chloride 0.9% 60 ml @ 1 MG/HR 0.5 mls/hr IV .Q24H [facility] Rx#: [id number] Potassium Chloride 20 meq 100 In Water For Injection 1 100ml.bag @ 50 mls/hr IVPB Q2H [facility] Rx#: [id number] propofoL 1,000 mg In 142.821 211.152 70.045 Empty Bag 1 bag @ 60 MCG/ KG/MIN 23.678 mls/hr IV . Q4H14M [facility] Rx#:[id number] Oral 120 Tube Feeding 160 399 215 Other 90 120 120 Output: Chest Tube Drainage 10 70 Chest Tube Right Lateral 10 70 Chest Urine 960 1100 400 Other: Voiding Method Indwelling Catheter Indwelling Catheter ABP, PAP, CO, CI - Last Documented Arterial Blood Pressure 160/53 - Exam General: Lying in bed and does not appear in acute distress. HENT: Supple neck Lung: Intubated on ventilator. Neuro: Limited. IV versed has been stopped since yesterday and today about 45 minutes ago IV Propofol has been held. Was given IV Ativan earlier today. Patient is comatose. Patient is breathing over the vent. No eye twitching notes at baseline or to opening eyes. With suctioning him he had twitching of his chest. Manually open eyes and the pupils are pinpoint r ound and primary gaze is midline. Is breathing over the vent. Motor: Unable to assess because of his overall condition. But no withdrawaling to painful stimuli. no jerking of any extremities. Tone is decreased throughout. Reflex: 0-1 throughout. Plantars are mute b/l. Some of the other workup during this hospital visit consisted of: MCV is 101 Creatinine is 3.67, sodium is 143, glucose on presentation is 163 Plasma lactic acid vein is 11.4, calcium 7.5, phosphorus 14.4, magnesium 3.4, AST is 499 and ALT is 171 TSH is 9.20 Serum B12: 735 Serum folate: 15.7 Ammonia: <9 AST and ALT levels are trending up CT head: No significant abnormality seen. There is no acute bleed or mass effect. Routine EEG: Is abnormal. The background slowing suggestive of moderate to severe encephalopathy. There are no focal slowing, OptiForm discharges or seizure on the EEG. - Labs CBC & Chem 7: 06/09/24 04:50 06/09/24 04:50 Labs: Abnormal Lab Results - Last 24 Hours (Table) 06/08/24 06/08/24 06/08/24 Range/Units 12:54 12:54 18:05 WBC (3.8-10.6) k/uL RBC (4.30-5.90) m/uL Hgb (13.0-17.5) gm/dL Hct (39.0-53.0) % Neutrophils # (1.3-7.7) k/uL Lymphocytes # (1.0-4.8) k/uL ABG pH (7.35-7.45) ABG pCO2 (35-45) mmHg ABG pO2 (83-108) mmHg ABG Total CO2 (19-24) mmol/L Potassium (3.5-5.1) mmol/L Chloride (98-107) mmol/L BUN (9-20) mg/dL Creatinine (0.66-1.25) mg/dL Glucose (74-99) mg/dL POC Glucose (mg/dL) 126 H (70-110) mg/dL Calcium (8.4-10.2) mg/dL AST (17-59) U/L ALT (4-49) U/L Creatine Kinase (55-170) U/L Total Protein (6.3-8.2) g/dL Total Protein (PEP) 6.0 L (6.2-8.2) g/dL Albumin (3.5-5.0) g/dL Complement C3 61.6 L (80.0-207.0) mg/dL 06/09/24 06/09/24 06/09/24 Range/Units 04:44 04:50 04:50 WBC 14.3 H (3.8-10.6) k/uL RBC 3.80 L (4.30-5.90) m/uL Hgb 12.1 L (13.0-17.5) gm/dL Hct 37.3 L (39.0-53.0) % Neutrophils # 13.1 H (1.3-7.7) k/uL Lymphocytes # 0.4 L (1.0-4.8) k/uL ABG pH 7.50 H (7.35-7.45) ABG pCO2 32 L (35-45) mmHg ABG pO2 82 L (83-108) mmHg ABG Total CO2 26 H (19-24) mmol/L Potassium 3.4 L (3.5-5.1) mmol/L Chloride 111 H (98-107) mmol/L BUN 48 H (9-20) mg/dL Creatinine 2.71 H (0.66-1.25) mg/dL Glucose 166 H (74-99) mg/dL POC Glucose (mg/dL) (70-110) mg/dL Calcium 7.0 L (8.4-10.2) mg/dL AST 486 H (17-59) U/L ALT 471 H (4-49) U/L Creatine Kinase (55-170) U/L Total Protein 5.6 L (6.3-8.2) g/dL Total Protein (PEP) (6.2-8.2) g/dL Albumin 2.6 L (3.5-5.0) g/dL Complement C3 (80.0-207.0) mg/dL 06/09/24 06/09/24 Range/Units 04:50 11:25 WBC (3.8-10.6) k/uL RBC (4.30-5.90) m/uL Hgb (13.0-17.5) gm/dL Hct (39.0-53.0) % Neutrophils # (1.3-7.7) k/uL Lymphocytes # (1.0-4.8) k/uL ABG pH (7.35-7.45) ABG pCO2 (35-45) mmHg ABG pO2 (83-108) mmHg ABG Total CO2 (19-24) mmol/L Potassium (3.5-5.1) mmol/L Chloride (98-107) mmol/L BUN (9-20) mg/dL Creatinine (0.66-1.25) mg/dL Glucose (74-99) mg/dL POC Glucose (mg/dL) 120 H (70-110) mg/dL Calcium (8.4-10.2) mg/dL AST (17-59) U/L ALT (4-49) U/L Creatine Kinase 01638 H* (55-170) U/L Total Protein (6.3-8.2) g/dL Total Protein (PEP) (6.2-8.2) g/dL Albumin (3.5-5.0) g/dL Complement C3 (80.0-207.0) mg/dL Microbiology - Last 24 Hours (Table) 06/06/24 05:48 Gram Stain - Final Sputum Sputum Culture - Final Haemophilus parainfluenzae 06/06/24 15:24 Blood Culture - Preliminary Blood Assessment and Plan Assessment: Is a 64-year-old gentleman with history of polysubstance abuse including heroin, cocaine, alcohol use who presented from [place] for witnessed cardiac arrest. Unknown exact story or duration of cardiac arrest. Unsure if the patient had syncopal episode that was convulsive that led to cardiac arrest or vice versa. As a result patient had CPR he was intubated in the field. The patient was found to be bradycardic and was given atropine. 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 Outside hospital Cardiac arrest (duration for 20 minutes) Likely anoxic brain injury due to above. Also has some component of metabolic derangement that can also give metabolic encephalopathy. CT head is negative for acute or subacute process or bleed. Eye twitching examination likely due to above since patient had cerebral anoxia that can lead to seizures/myoclonic seizure--no seizure or discharges on the routine EEG. Elevated lactic acid level Elevated electrolyte levels such as phosphorus, magnesium Abnormal TSH Elevated liver function AST more than ALT for alcohol use--trending up Kidney insufficiency and unsure if this is acute or chronic. Acute respiratory distress and the patient is intubated on the ventilator History of polysubstance use including heroin, cocaine and alcohol Plan: Keppra 500 mg twice daily and Vimpat 50 mg twice daily for his eyes twitching concerning for seizure/myoclonus seizure which was started on 06/06/2024. I will get repeat EEG today since had chest twitching and it was with stimulation to rule out seizure. Patient is on thiamine 250 mg 3 times daily Nephrology team is consulted Will defer the rest of the medical management to primary and other specialist Condition is critical. His overall prognosis is very poor. Today he is off both sedation. He is getting IV Ativan PRN for his body twitching.. Plan discussed with ICU nurse. Time with Patient: Less than 30
--- NOTE | 2024-06-09 14:31 | P.PN ---
Subjective Progress Note Date: 06/09/24 Principal diagnosis: Cardiopulmonary arrest This is a 64-year-old male patient was in [place] and the patient was about to get discharged. He has history of polysubstance abuse including cocaine, heroin alcoholism. The patient developed some mental status change and subs equently the became bradycardic and the apparently collapsed and subsequently found to to be in cardiopulmonary arrest. The original rhythm information is not available. Please refer to the emergency notes. Apparently patient was found unresponsive and he stopped breathing and he collapsed. CPR was initiated by EMS. The patient was intubated on the route. Subsequently, CPR was continued in our emergency department. Initial EKG showed some ST segment elevation over the V1 and V2 leads. Based on that, the patient was taken immediately to the [facility] and underwent a cardiac catheterization that this showed essentially normal coronaries. The clinic pressures were also low. The patient was kept intubated and following that he was moved to the intensive care unit. At this point in time, the patient is intubated on mechanical ventilator. He is on propofol which is running at 60 mcg/kg/min is also on a Versed drip at 12 mg an hour. He is on assist-control mode of mechanical ventilation at rate of 18, tidal volume of 400, FiO2 50% with a PEEP of 5. Initial lactic acid level was 11.4 and dropped down to 7.7. Initial blood gases showed a pH of 7.06 with a pCO2 of 50 and pO2 more than 420. Subsequent blood gas showed a pH of 7.39 with a pCO2 of 39 and pO2 of 95 and this was verified to 50%. Chest x-ray showed no consolidation or airspace disease. The morning chest x-ray showed right-sided pneumothorax. Based on that, I inserted a 28 Tamazight chest tube into the right hemithorax and a pneumothorax was drained. Chest tube is currently in place and the patient is positive airleak. Hemodynamically, the patient has no pressors. He is slightly hypothermic and his most recent temperature is at 95.5 degrees. The white cell count of 13.5 with a hemoglobin 17.5 and a platelet count of 315. The patient has sustained acute kidney injury with a BUN of 41 with a creatinine of 3.6 and urine output is only a (an hour. Serum bicarb is at 14 with an anion gap of 28. Sodium is at 143. AST is 499, ALT is 171, troponin is at 0.191 and proBNP level is 18,300. TSH is at 9.2. UA showed 28 RBCs and 71 WBCs. CAT scan of the brain has not been done. Neurologically, the patient is not withdrawing to painful stimulation. No seizure activity. Pupils are round 2 mm in size, symmetrical. Reflexes are quite diminished in all 4 EXTR. He is breathing about the mechanical ventilator. 06/07/2024, the patient remains intubated on mechanical ventilator. The patient is sedated with a combination of propofol running at 65 mcg/kg/min and Versed drip at 15 mg an hour. Patient is also on a combination of Vimpat and Keppra. Some twitching of the lip was noted, suspected seizures, suspected anoxic encephalopathy and the patient is having an EEG done today. Neurology is on the case. No active twitching or body jerks is noted on clinical examination today. Meanwhile, the patient is still on the mechanical ventilator. The patient is on a pressure control mode of mechanical ventilation at rate of 12, pressure control of 20, FiO2 50% with a PEEP of 5. Chest x-ray from today shows no acute abnormalities. The right-sided chest tube is in place. There is intermittent air leak and there is no evidence of any pneumothorax. ET tube is in good location. The patient's blood gas from today shows a pH of 7.6 with a pCO2 of 31 and a pO2 of 121. Bicarb drip has been discontinued and the patient is currently on half-normal saline which is running at 100 cc an hour. The patient sustained an acute rhabdomyolysis. Cardiac catheterization was negative for any coronary abnormalities. Echocardiogram was also done that showed a preserved LV function without any significant valvular abnormalities. Ejection fraction was around 65%. CAT scan of the brain was done and it showed no acute abnormalities. Ultrasound of the kidneys showed no hydronephrosis. The blood work from today shows a white cell count of 14.3 with a hemoglobin 15.8 and a platelet count of 232. Sodium is at 140 with a potassium level of 3.0. BUN is 59 with a creatinine of 2.9 and the patient is producing urine output. Urine drug screen was positive for cocaine and benzodiazepine. Afebrile. No other significant events noted overnight. Neurology on the case. Estimated downtime was around 17 and later on 30 minutes during which the patient received CPR. As such, high likelihood for an underlying anoxic encephalopathy. Patient was evaluated today on 06/08/2024, patient remains in the ICU, intubated and mechanically ventilated. He is on pressure control mode of mechanical ventilation, with PI of 20, TI of 0.9, FiO2 50% and I cut it down to 40% rate of 12 and PEEP of 5 ABG showed a pO2 of 116 pCO2 39 pH of 7.50. Looking back at the history, patient had cardiac arrest x 2 CPR for 17 minutes on 06/06. He may have sustained some anoxic brain injury patient is on vital AF at 40 cc/h IV fluid at 100 cc/h which I increased to 150 cc/h remains on Versed at 1 mg/h and propofol at 50 mcg/kg/min. Patient is on Unasyn, his CPK is improving but nonetheless remains over 20,000. Patient is not requiring any pressors he is on Cleviprex at 8 g/h. Show reviewed WBC count is 12.4 hemoglobin 13.4 electrolytes are normal bicarb is 33 BUN is 54 creatinine 3.12 CPK is 20,686. Her enzymes are also elevated with AST of 1151 and ALT of 818 Patient was evaluated today on 06/09/2024, remains intubated clinically ventilated, unresponsive to any stimuli, patient will be taken off sedati on/propofol to address mental status, I strongly suspect that the patient may have sustained severe anoxic brain injury. He is on pressure control mode of mechanical ventilation with rate of 12 pressure control of 20 T1 of 0.90 ABG showed a pO2 of 82 pCO2 32 pH of 7.50 hence no changes were made in vent settings. Continues to have chest tube in place and there is tiny air leak noted. Patient remains on Unasyn he is also on propofol at 50 mg/kg/min Cleviprex at 5 mg/h IV fluid at 150 cc/h vital AF at 43 cc/h. WBC count is 14.3 hemoglobin 12.1. Electrolytes are normal, BUN is 48 creatinine 2.71 steadily improving compared to 3.67 few days ago. CPK is coming down to 12,000 and liver enzymes are improving with AST down to 486 and ALT is 471. Total bilirubin is 1.1 chest x-ray shows no evidence of pneumothorax, chest tube is in the right place, there is possibly a small left lower lobe atelectasis and small pleural effusion per Objective - Vital Signs Vital signs: Vital Signs Temp 99.8 F H 06/09/24 08:00 Pulse 113 H 06/09/24 14:00 Resp 14 06/09/24 14:00 BP 140/67 06/09/24 14:00 Pulse Ox 100 06/09/24 14:00 FiO2 40 06/09/24 11:45 Intake & Output 06/08/24 06/09/24 06/09/24 18:59 06:59 18:59 Intake Total 2357.446 3084.552 1888.178 Output Total 970 1170 520 Balance 1250.732 0504.552 1368.178 Weight 70 kg 70.5 kg Intake: IV 1710 2210 1110 0.9% NS KVO 110 120 60 Ampicillin-Sulbactam 1.5 50 gm In Sodium Chloride 0.9 % 50 ml @ 100 mls/hr IVPB Q8HR BEV Rx#:[id number] Potassium Chloride 20 meq 100 50 In Water For Injection 1 100ml.bag @ 50 mls/hr IVPB ONCE ONE Rx#: [id number] Sodium Chloride 0.45% 1, 100 000 ml @ 100 mls/hr IV . Q10H BEV Rx#:[id number] Sodium Chloride 0.9% 1, 1400 1940 1050 000 ml @ 150 mls/hr IV . Q6H40M BEV Rx#:[id number] Thiamine 250 mg In Sodium 50 Chloride 0.9% 50 ml @ 100 mls/hr IVPB TID BEV Rx#:[id number] Intake, IV Titration 277.446 355.552 297.178 Amount Ampicillin-Sulbactam 1.5 50 gm In Sodium Chloride 0.9 % 50 ml @ 100 mls/hr IVPB Q8HR BEV Rx#:[id number] Clevidipine Butyrate 25 129.333 144.4 77.133 mg In Empty Bag 1 bag @ 1 MG/HR 2 mls/hr IV .Q24H BEV Rx#:[id number] Midazolam HCl 200 mg In 5.292 Sodium Chloride 0.9% 60 ml @ 1 MG/HR 0.5 mls/hr IV .Q24H BEV Rx#: [id number] Potassium Chloride 20 meq 100 In Water For Injection 1 100ml.bag @ 50 mls/hr IVPB Q2H BEV Rx#: [id number] propofoL 1,000 mg In 142.821 211.152 70.045 Empty Bag 1 bag @ 60 MCG/ KG/MIN 23.678 mls/hr IV . Q4H14M BEV Rx#:[id number] Oral 120 Tube Feeding 160 399 301 Other 90 120 180 Output: Chest Tube Drainage 10 70 Chest Tube Right Lateral 10 70 Chest Urine 960 1100 520 Other: Voiding Method Indwelling Catheter Indwelling Catheter ABP, PAP, CO, CI - Last Documented Arterial Blood Pressure 140/43 - Exam General: Reveals 64-year-old -[place] male, intubated, mechanically ventilated, unresponsive to any stimuli. Head exam atraumatic, normocephalic. Endotracheal tube and orogastric tube are intact. Neck supple no neck masses no JVD, right IJ triple-lumen catheter in place Lung: Diminished breath sound bilaterally right-sided chest tube in place, continues to have some air leak. Abdominal exam flat soft nontender no megaly no rebound or guarding, positive bowel sounds Examination no clubbing edema or cyanosis, good pulses bilaterally. Examination of the skin revealed no evidence of significant rashes Neuro:Limited. Could not be assessed patient remains sedated Upon manually opening his eyes patient had twitching of his eyes but when the eyes are closed there is no twitching. Pupils remain pinpoint. Motor: Unable to assess - Labs CBC & Chem 7: 06/09/24 04:50 06/09/24 04:50 Labs: Abnormal Lab Results - Last 24 Hours (Table) 06/08/24 06/08/24 06/08/24 Range/Units 12:54 12:54 18:05 WBC (3.8-10.6) k/uL RBC (4.30-5.90) m/uL Hgb (13.0-17.5) gm/dL Hct (39.0-53.0) % Neutrophils # (1.3-7.7) k/uL Lymphocytes # (1.0-4.8) k/uL ABG pH (7.35-7.45) ABG pCO2 (35-45) mmHg ABG pO2 (83-108) mmHg ABG Total CO2 (19-24) mmol/L Potassium (3.5-5.1) mmol/L Chloride (98-107) mmol/L BUN (9-20) mg/dL Creatinine (0.66-1.25) mg/dL Glucose (74-99) mg/dL POC Glucose (mg/dL) 126 H (70-110) mg/dL Calcium (8.4-10.2) mg/dL AST (17-59) U/L ALT (4-49) U/L Creatine Kinase (55-170) U/L Total Protein (6.3-8.2) g/dL Total Protein (PEP) 6.0 L (6.2-8.2) g/dL Albumin (3.5-5.0) g/dL Complement C3 61.6 L (80.0-207.0) mg/dL 06/09/24 06/09/24 06/09/24 Range/Units 04:44 04:50 04:50 WBC 14.3 H (3.8-10.6) k/uL RBC 3.80 L (4.30-5.90) m/uL Hgb 12.1 L (13.0-17.5) gm/dL Hct 37.3 L (39.0-53.0) % Neutrophils # 13.1 H (1.3-7.7) k/uL Lymphocytes # 0.4 L (1.0-4.8) k/uL ABG pH 7.50 H (7.35-7.45) ABG pCO2 32 L (35-45) mmHg ABG pO2 82 L (83-108) mmHg ABG Total CO2 26 H (19-24) mmol/L Potassium 3.4 L (3.5-5.1) mmol/L Chloride 111 H (98-107) mmol/L BUN 48 H (9-20) mg/dL Creatinine 2.71 H (0.66-1.25) mg/dL Glucose 166 H (74-99) mg/dL POC Glucose (mg/dL) (70-110) mg/dL Calcium 7.0 L (8.4-10.2) mg/dL AST 486 H (17-59) U/L ALT 471 H (4-49) U/L Creatine Kinase (55-170) U/L Total Protein 5.6 L (6.3-8.2) g/dL Total Protein (PEP) (6.2-8.2) g/dL Albumin 2.6 L (3.5-5.0) g/dL Complement C3 (80.0-207.0) mg/dL 06/09/24 06/09/24 Range/Units 04:50 11:25 WBC (3.8-10.6) k/uL RBC (4.30-5.90) m/uL Hgb (13.0-17.5) gm/dL Hct (39.0-53.0) % Neutrophils # (1.3-7.7) k/uL Lymphocytes # (1.0-4.8) k/uL ABG pH (7.35-7.45) ABG pCO2 (35-45) mmHg ABG pO2 (83-108) mmHg ABG Total CO2 (19-24) mmol/L Potassium (3.5-5.1) mmol/L Chloride (98-107) mmol/L BUN (9-20) mg/dL Creatinine (0.66-1.25) mg/dL Glucose (74-99) mg/dL POC Glucose (mg/dL) 120 H (70-110) mg/dL Calcium (8.4-10.2) mg/dL AST (17-59) U/L ALT (4-49) U/L Creatine Kinase 17864 H* (55-170) U/L Total Protein (6.3-8.2) g/dL Total Protein (PEP) (6.2-8.2) g/dL Albumin (3.5-5.0) g/dL Complement C3 (80.0-207.0) mg/dL Microbiology - Last 24 Hours (Table) 06/06/24 05:48 Gram Stain - Final Sputum Sputum Culture - Final Haemophilus parainfluenzae 06/06/24 15:24 Blood Culture - Preliminary Blood Assessment and Plan Assessment: Impression: Acute cardiopulmonary arrest. Exact cause is not clear. Prolonged downtime, mostly over 17-minute this could have been related to an acute drug overdose as the patient had to stop breathing and subsequently went into cardiopulmonary arrest. ST segment elevations with normal coronaries based on the coronary angiogram, echocardiogram was completed and the patient has a normal LV function. Acute unresponsiveness, postcardiac arrest and the patient had a negative CAT scan of the brain. Acute respiratory failure, nonhypoxic, hypercapnic, currently intubated on mechanical ventilator Right-sided pneumothorax likely related to CPR or right IJ line placement, patient continues to have right-sided chest tube in place. Minimal air leak noted Polysubstance abuse including cocaine, heroin and alcoholism Acute metabolic encephalopathy Acute rhabdomyolysis, CPK is steadily trending down. Acute kidney injury, improving as the patient is getting more fluids and CPK is improving Abnormal LFTs could be related to alcoholism. Steadily improving Possible anoxic brain injury related to prolonged downtime from cardiopulmonary arrest Recommendation: Continue ventilatory support Sedation interruption on daily basis and this will be done again today. Continue IV fluids Continue Unasyn for presumptive aspiration pneumonia Continue to monitor CPK and renal profile as well as liver status GI and DVT prophylaxis Nutritional support/enteral feeding Patient remains critically ill, and will continue to follow Not quite ready for weaning trials or extubation mostly because of his underlying neurological status and possible anoxic brain injury Critical care time is over 30-minute Time with Patient: Greater than 30
[2024-06-09 15:27] LABS: Albumin 2.54 g/dL (3.80-4.90); Gamma Globulin 1.59 g/dL (0.70-1.50)
[2024-06-09 16:50] LABS: Anti-DNA, DS unit <1.0 IU/mL; DNA Double-Stranded Negative (Negative)
[2024-06-09 17:53] LABS: Glucose,Whole Blood 136 mg/dL (70-110)
[2024-06-09] MEDS: INSULIN ASPART (NovoLOG) 100 UNIT/ML VIAL SQ SCH (18:45)
--- NOTE | 2024-06-09 21:04 | EEG ---
ELECTROENCEPHALOGRAM REPORT CLINICAL HISTORY: This is a 64-year-old gentleman with outside the hospital cardiac arrest, who has altered mental status and body twitching. The video EEG is obtained to evaluate for seizure epileptiform activity. RELEVANT MEDICATIONS: 1. Keppra. 2. Vimpat. 3. IV propofol (IV propofol has been held this morning). 4. As well as, the patient is on IV Ativan. EEG TYPE: This is a routine 21-channel EEG with video using the 10/20 electrode placement system. DESCRIPTION: The patient is intubated on a ventilator. The background consists of [id number] voltage of 5-6 hertz activity, alternating with delta activity. There is no physiological stage 2 sleep architecture. There is no focal slowing. Interictal and ictal are none. ACTIVATION PROCEDURE: Photic stimulation did not evoke a posterior driving response. There is no abnormality during the photic stimulation. Hyperventilation is not performed. CLINICAL INTERPRETATION: This is an abnormal routine EEG. The background slowing is suggestive of moderate encephalopathy. There is no focal slowing, epileptiform discharge, or seizure on the EEG. MMODL / IJN: [id number] /
[2024-06-09 23:24] LABS: Glucose,Whole Blood 133 mg/dL (70-110)
[2024-06-10 04:07] LABS: Basophils % (A) 0 %; Eosinophils # (A) 0.2 k/uL (0-0.7); Eosinophils % (A) 2 %; HCT 36.5 % (39.0-53.0); HGB 11.4 gm/dL (13.0-17.5); Hypochromasia Moderate; Lymphocytes # (A) 0.7 k/uL (1.0-4.8); Lymphocytes % (A) 7 %; MCH 31.3 pg (25.0-35.0); MCHC 31.2 g/dL (31.0-37.0); MCV 100.3 fL (80.0-100.0); Mean Platelet Volume 8.2; Monocytes # (A) 0.6 k/uL (0-1.0); Monocytes % (A) 6 %; Neutrophils # (A) 8.2 k/uL (1.3-7.7); Neutrophils % (A) 84 %; Platelet Count 204 k/uL (150-450); RBC 3.64 m/uL (4.30-5.90); RDW 12.5 % (11.5-15.5); WBC 9.8 k/uL (3.8-10.6)
[2024-06-10 04:19] LABS: ALT 344 U/L (4-49); AST 325 U/L (17-59); African American GFR (CKD) 31 (>60 ml/min/1.73 sqM); Albumin 2.6 g/dL (3.5-5.0); Alkaline Phosphatase 63 U/L (38-126); Anion Gap 9 mmol/L; Blood Urea Nitrogen 49 mg/dL (9-20); Calcium 7.4 mg/dL (8.4-10.2); Carbon Dioxide 22 mmol/L (22-30); Chloride 114 mmol/L (98-107); Glucose 116 mg/dL (74-99); Magnesium 2.2 mg/dL (1.6-2.3); Non-African American GFR(CKD) 27 (>60 ml/min/1.73 sqM); Phosphorus 4.4 mg/dL (2.5-4.5); Potassium 4.3 mmol/L (3.5-5.1); Sodium 145 mmol/L (137-145); Total Protein 5.6 g/dL (6.3-8.2)
[2024-06-10 04:55] LABS: ABG Base Excess -1.3 mmol/L; ABG HCO3 23 mmol/L (21-25); ABG Oxygen Saturation 97.6 % (94-97); ABG PCO2 36 mmHg (35-45); ABG PH 7.41 (7.35-7.45); ABG PO2 96 mmHg (83-108); ABG TCO2 24 mmol/L (19-24); Allen Test Performed? Yes
[2024-06-10 05:22] LABS: Creatine Kinase 6968 U/L (55-170)
[2024-06-10 06:40] LABS: Glucose,Whole Blood 117 mg/dL (70-110)
--- NOTE | 2024-06-10 07:53 | P.PN ---
Subjective Progress Note Date: 06/10/24 Principal diagnosis: Hypertension emergency This is a 64-year-old -[place] gentleman with a past medical history significant for history of alcohol use and drug use who was admitted to the hospital after he had cardiopulmonary arrest. Subsequently the EKG showed finding concerning for acute coronary syndrome. He underwent a heart catheterization which revealed no evidence of obstructive coronary artery disease. Subsequently the patient was intubated and placed on mechanical ventilation. June 08, 2024 He was seen and evaluated. He continues to be sedated. He continues to be on mechanical ventilation. The pressure remains elevated and currently he is on clevidipine IV. Hydralazine was initiated earlier today. Am going to increase the dose of hydralazine and add clonidine patches to the current medical regimen. The echo showed preserved LV systolic function with severe hypertensive heart disease. The examination is remarkable for regular rhythm with a systolic murmur at the right upper sternal border and clear breathing sounds bilaterally and no edema was noted in the lower extremities. Please note that the patient was also in renal failure. June 09, 2024 The patient was seen and evaluated this morning. He continues to be intubated on mechanical ventilation. The pressure remains elevated and he was started on Cleviprex. Meanwhile I am going to increase the dose of hydralazine to 100 mg p.o. 4 times daily. He is going through what is seems to be withdrawal which could be contributing to the elevated blood pressure. The examination is remarkable for regular rhythm with a systolic murmur at the right and left upper sternal border with clear breathing sounds bilaterally and no edema was noted June 10, 2024 The patient was seen and evaluated this morning. He continues to be intubated on mechanical ventilation but he is not waking up and there is a concern about encephalopathy with the pressure remains elevated. Am going to increase the dose of the clonidine patch and also start the patient on calcium channel leanna using Cardizem and try to wean the patient from Cardizem IV using clevidipine. The physical examination is remarkable for regular rhythm with a soft systolic murmur and clear breathing sounds bilaterally and no edema was noted in the lower extremities Assessment Cardiopulmonary arrest Acute coronary syndrome Hypertension emergency Renal failure History of drug abuse History of alcohol use Plan Try to wean the patient from clevidipine Start the patient on Cardizem Increase the dose of clonidine Follow-up with the patient Objective - Vital Signs Vital signs: Vital Signs Temp 99.8 F H 06/10/24 00:00 Pulse 104 H 06/10/24 07:30 Resp 16 06/10/24 07:30 BP 125/63 06/10/24 07:30 Pulse Ox 96 06/10/24 07:30 FiO2 40 06/10/24 04:28 Intake & Output 06/09/24 06/10/24 06/10/24 18:59 06:59 18:59 Intake Total 2996.978 2736.233 203 Output Total 830 1540 150 Balance 2166.978 1196.233 53 Weight 74.8 kg Intake: IV 1750 2020 160 0.9% NS KVO 100 120 10 Ampicillin-Sulbactam 1.5 50 gm In Sodium Chloride 0.9 % 50 ml @ 100 mls/hr IVPB Q8HR BEV Rx#:[id number] Sodium Chloride 0.9% 1, 1650 1800 150 000 ml @ 150 mls/hr IV . Q6H40M BEV Rx#:[id number] Thiamine 250 mg In Sodium 50 Chloride 0.9% 50 ml @ 100 mls/hr IVPB TID BEV Rx#:[id number] Intake, IV Titration 533.978 153.233 Amount Ampicillin-Sulbactam 1.5 100 gm In Sodium Chloride 0.9 % 50 ml @ 100 mls/hr IVPB Q8HR BEV Rx#:[id number] Clevidipine Butyrate 25 163.933 153.233 mg In Empty Bag 1 bag @ 1 MG/HR 2 mls/hr IV .Q24H BEV Rx#:[id number] Potassium Chloride 20 meq 100 In Water For Injection 1 100ml.bag @ 50 mls/hr IVPB Q2H BEV Rx#: [id number] Thiamine 250 mg In Sodium 100 Chloride 0.9% 50 ml @ 100 mls/hr IVPB TID BEV Rx#:[id number] propofoL 1,000 mg In 70.045 Empty Bag 1 bag @ 60 MCG/ KG/MIN 23.678 mls/hr IV . Q4H14M BEV Rx#:[id number] Tube Feeding 473 473 43 Other 240 90 Output: Chest Tube Drainage 35 60 Chest Tube Right Lateral 35 60 Chest Urine 795 1480 150 Other: Voiding Method Indwelling Catheter Indwelling Catheter ABP, PAP, CO, CI - Last Documented Arterial Blood Pressure 154/53 - Labs CBC & Chem 7: 06/10/24 03:53 06/10/24 03:53 Labs: Abnormal Lab Results - Last 24 Hours (Table) 06/08/24 06/09/24 06/09/24 Range/Units 12:54 04:50 11:25 RBC (4.30-5.90) m/uL Hgb (13.0-17.5) gm/dL Hct (39.0-53.0) % MCV (80.0-100.0) fL Neutrophils # (1.3-7.7) k/uL Lymphocytes # (1.0-4.8) k/uL ABG O2 Saturation (94-97) % Hemoglobin (13.0-17.5) gm/dL Chloride (98-107) mmol/L BUN (9-20) mg/dL Creatinine (0.66-1.25) mg/dL Glucose (74-99) mg/dL POC Glucose (mg/dL) 120 H (70-110) mg/dL Calcium (8.4-10.2) mg/dL AST (17-59) U/L ALT (4-49) U/L Creatine Kinase 23680 H* (55-170) U/L Total Protein (6.3-8.2) g/dL Total Protein (PEP) 6.0 L (6.2-8.2) g/dL Albumin (3.5-5.0) g/dL Albumin (PEP) 2.54 L (3.80-4.90) g/dL Gamma Globulins 1.59 H (0.70-1.50) g/dL 06/09/24 06/09/24 06/10/24 Range/Units 17:51 23:22 03:53 RBC 3.64 L (4.30-5.90) m/uL Hgb 11.4 L (13.0-17.5) gm/dL Hct 36.5 L (39.0-53.0) % MCV 100.3 H (80.0-100.0) fL Neutrophils # 8.2 H (1.3-7.7) k/uL Lymphocytes # 0.7 L (1.0-4.8) k/uL ABG O2 Saturation (94-97) % Hemoglobin (13.0-17.5) gm/dL Chloride (98-107) mmol/L BUN (9-20) mg/dL Creatinine (0.66-1.25) mg/dL Glucose (74-99) mg/dL POC Glucose (mg/dL) 136 H 133 H (70-110) mg/dL Calcium (8.4-10.2) mg/dL AST (17-59) U/L ALT (4-49) U/L Creatine Kinase (55-170) U/L Total Protein (6.3-8.2) g/dL Total Protein (PEP) (6.2-8.2) g/dL Albumin (3.5-5.0) g/dL Albumin (PEP) (3.80-4.90) g/dL Gamma Globulins (0.70-1.50) g/dL 06/10/24 06/10/24 06/10/24 Range/Units 03:53 04:53 06:39 RBC (4.30-5.90) m/uL Hgb (13.0-17.5) gm/dL Hct (39.0-53.0) % MCV (80.0-100.0) fL Neutrophils # (1.3-7.7) k/uL Lymphocytes # (1.0-4.8) k/uL ABG O2 Saturation 97.6 H (94-97) % Hemoglobin 11.5 L (13.0-17.5) gm/dL Chloride 114 H (98-107) mmol/L BUN 49 H (9-20) mg/dL Creatinine 2.42 H (0.66-1.25) mg/dL Glucose 116 H (74-99) mg/dL POC Glucose (mg/dL) 117 H (70-110) mg/dL Calcium 7.4 L (8.4-10.2) mg/dL AST 325 H (17-59) U/L ALT 344 H (4-49) U/L Creatine Kinase 6968 H* (55-170) U/L Total Protein 5.6 L (6.3-8.2) g/dL Total Protein (PEP) (6.2-8.2) g/dL Albumin 2.6 L (3.5-5.0) g/dL Albumin (PEP) (3.80-4.90) g/dL Gamma Globulins (0.70-1.50) g/dL Microbiology - Last 24 Hours (Table) 06/06/24 15:24 Blood Culture - Preliminary Blood 06/06/24 05:48 Gram Stain - Final Sputum Sputum Culture - Final Haemophilus parainfluenzae
--- NOTE | 2024-06-10 08:07 | XR ---
EXAMINATION TYPE: XR chest 1V portable DATE OF EXAM: 06/10/2024 COMPARISON: 06/09/2024 HISTORY: SOB, Follow Up FINDINGS: Indwelling tubes and catheters are unchanged. No change in perihilar opacities. Stable appearance of the cardio-mediastinal structures at this time. Pleural effusion unchanged. IMPRESSION: 1. Stable portable chest. Clinical correlation and follow up until resolution is recommended.
[2024-06-10] MEDS: DILTIAZEM ORAL 30 MG TAB PO SCH (09:14)
[2024-06-10] MEDS: cloNIDine 0.3 MG/24HR PATCH TRANSDERM SCH (09:15)
--- NOTE | 2024-06-10 09:36 | P.PN ---
Subjective Progress Note Date: 06/10/24 64-year-old male with history of polysubstance abuse including heroin, cocaine, alcohol presenting from [place] for witnessed cardiac arrest on 06/06. Unknown downtime. Per report, patient possibly had seizure-like activity after having a cardiac arrest. He had multiple rounds of CPR and was intubated in the field. After getting to the hospital, he was found to be bradycardic for which he was given atropine. EKG concerning for anterior STEMI with ST elevations in aVR and V1, patient taken directly to [facility], coronary arteries are patent. Patient now in the ICU. Initial vitals BP 61/38, mechanically ventilated, RR 16, HR 119, T 96.8F. CBC, Coag panel, CMP significant for WBC 13.5, Hct 54.3, MCV 101.2, PT 13.1, INR 1.2, bicarb 14, BUN 41, Cr 3.67. glu 163, Ca 10.5, AST 499, ALT 171, total protein 8.9. Lactic acid 11.4. Phos 14.4. Mag 3.4. Troponin 0.191. BNP 04732. TSH 9.22. CXR no acute findings, ET tube, central line, NG tube in place. ICU, nephrology, neurology, cardiology on board. Echo EF 65-70% severe LV thickness. CXR showed right PTX, status post chest tube on 06/06. Brain CT negative. EEG mod-severe encephalopathy. Started on Unasyn empirically. CPK 89358 06/07 and Cr 3.67 / improved with IV hydration. Weaned off propofol, had some tremors thought to be related to withdrawal, started on Ativan PRN. Cardiology managing elevated BP. Weaned off Propofol over the past 24H with no significant improvement in mentation. 06/10 Patient was seen and examined. Intubated. Clevidipine drip at 9 mg/hr. Cardiology increased Clonidine patch and started on PO Cardizem. Antibiotics include Unasyn 3g IV TID. CBC, CMP significant for RBC 3.64, Hg 11.4, Hct 36.5, MCV 100.3, Cl 114, BUN 49, Cr 2.42, glu 116, Ca 7.4, AST 325, ALT 344, alb 2.6. CPK 6968. ABG pH 7.41, pO2 96, pCO2 36 FiO2 40. CXR shows R chest tube with no PTX, ET tube, NG tube, central venous catheter in place. EEG repeated yesterday shows moderated encephalopathy. Case discussed with Dr. Post, patient is poor prognosis. Will attempt to reach out to family today. Tmax 101F overnight, BP 130/64, HR 104, RR 18, 97% FiO2 40. General: Intubated Derm: warm, dry Head: atraumatic, normocephalic, symmetric Eyes: no lid lag, anicteric sclera Mouth: no lip lesion, mucus membranes moist Cardiovascular: S1 S2 tachy. + systolic murmurs, rubs or gallops. No LE edema Lungs: Decreased BS bilaterally, no accessory muscle use Ext: No muscle atrophy Neuro: Intubated Psych: Intubated Right chest tube in place Based on my assessment of this patient, this patient meets a high complexity level of care. Hypertensive emergency: Clevidipine drip at 9mg/hr. Hydralazine 100 mg PO QID. Clonidine 0.3 mg patch Qweekly. Added Cardizem 30 mg PO TID. [id number] cardiac arrest: Unknown etiology. Possible related to cocaine use. Cath negative. Concern for PE less likely. Cardiology on board. Acute anterior STEMI Acute metabolic encephalopathy: Concern for anxoic brain injury. CT brain negative. EEG mod-severe encephalopathy. Ammonia negative. Seizure like activity witnessed. Vimpat 50 mg IV BID, Keppra 500 mg IV BID. Neurology on board. Acute respiratory failure: Vent managed by Pulmonary. Right pneumothorax status post chest tube 06/06 Acute rhabdomyolysis: NS at 160 cc/hr. Trend CPK. Monitor renal function. Sepsis: Sputum Cx H. parainfluenza. UCx negative. BCx negative so far. Unasyn 3g IV TID. Transaminitis likely shock liver with Hep B + C positive. Nonoliguric JAYASHREE: IV hydration as above. Nephrology on board. History of polysubstance abuse: UDS + benzo + cocaine. Euthyroid sick syndrome: TSH 9.22. Resolved: Cardiogenic versus hypovolemic shock, high AG met acidosis CODE STATUS: FULL CODE DVT Prophylaxis: Heparin SQ GI Prophylaxis: Protonix IV Designated medical POA if patient is not able to make medical decisions for themselves: I have reviewed the following data consultant notes: Pulmonary, Cardiology, Neurology, Nephrology I have reviewed the results of the following tests: CBC, CMP, ABG, CPK, EEG, UCx, Sputum Cx, BCx I have ordered the following tests: I have discussed the care of this patient with the following independent historian: RN I have independently interpreted the following test below: CXR I have discussed the management of this patient with the following physician: Dr. Post Objective - Vital Signs Vital signs: Vital Signs Temp 99.8 F H 06/10/24 00:00 Pulse 109 H 06/10/24 09:14 Resp 18 06/10/24 08:00 BP 130/64 06/10/24 08:00 Pulse Ox 97 06/10/24 08:00 FiO2 40 06/10/24 09:10 Intake & Output 06/09/24 06/10/24 06/10/24 18:59 06:59 18:59 Intake Total 2996.978 2736.233 436 Output Total 830 1540 300 Balance 2166.978 1196.233 136 Weight 74.8 kg Intake: IV 1750 2020 320 0.9% NS KVO 100 120 20 Ampicillin-Sulbactam 1.5 50 gm In Sodium Chloride 0.9 % 50 ml @ 100 mls/hr IVPB Q8HR [facility] Rx#:[id number] Sodium Chloride 0.9% 1, 1650 1800 300 000 ml @ 150 mls/hr IV . Q6H40M [facility] Rx#:[id number] Thiamine 250 mg In Sodium 50 Chloride 0.9% 50 ml @ 100 mls/hr IVPB TID [facility] Rx#:[id number] Intake, IV Titration 533.978 153.233 Amount Ampicillin-Sulbactam 1.5 100 gm In Sodium Chloride 0.9 % 50 ml @ 100 mls/hr IVPB Q8HR [facility] Rx#:[id number] Clevidipine Butyrate 25 163.933 153.233 mg In Empty Bag 1 bag @ 1 MG/HR 2 mls/hr IV .Q24H [facility] Rx#:[id number] Potassium Chloride 20 meq 100 In Water For Injection 1 100ml.bag @ 50 mls/hr IVPB Q2H [facility] Rx#: [id number] Thiamine 250 mg In Sodium 100 Chloride 0.9% 50 ml @ 100 mls/hr IVPB TID [facility] Rx#:[id number] propofoL 1,000 mg In 70.045 Empty Bag 1 bag @ 60 MCG/ KG/MIN 23.678 mls/hr IV . Q4H14M [facility] Rx#:[id number] Tube Feeding 473 473 86 Other 240 90 30 Output: Chest Tube Drainage 35 60 Chest Tube Right Lateral 35 60 Chest Urine 795 1480 300 Other: Voiding Method Indwelling Catheter Indwelling Catheter Indwelling Catheter ABP, PAP, CO, CI - Last Documented Arterial Blood Pressure 151/53 - Labs CBC & Chem 7: 06/10/24 03:53 06/10/24 03:53 Labs: Abnormal Lab Results - Last 24 Hours (Table) 06/08/24 06/09/24 06/09/24 Range/Units 12:54 04:50 11:25 RBC (4.30-5.90) m/uL Hgb (13.0-17.5) gm/dL Hct (39.0-53.0) % MCV (80.0-100.0) fL Neutrophils # (1.3-7.7) k/uL Lymphocytes # (1.0-4.8) k/uL ABG O2 Saturation (94-97) % Hemoglobin (13.0-17.5) gm/dL Chloride (98-107) mmol/L BUN (9-20) mg/dL Creatinine (0.66-1.25) mg/dL Glucose (74-99) mg/dL POC Glucose (mg/dL) 120 H (70-110) mg/dL Calcium (8.4-10.2) mg/dL AST (17-59) U/L ALT (4-49) U/L Creatine Kinase 38266 H* (55-170) U/L Total Protein (6.3-8.2) g/dL Albumin (3.5-5.0) g/dL Albumin (PEP) 2.54 L (3.80-4.90) g/dL Gamma Globulins 1.59 H (0.70-1.50) g/dL 06/09/24 06/09/24 06/10/24 Range/Units 17:51 23:22 03:53 RBC 3.64 L (4.30-5.90) m/uL Hgb 11.4 L (13.0-17.5) gm/dL Hct 36.5 L (39.0-53.0) % MCV 100.3 H (80.0-100.0) fL Neutrophils # 8.2 H (1.3-7.7) k/uL Lymphocytes # 0.7 L (1.0-4.8) k/uL ABG O2 Saturation (94-97) % Hemoglobin (13.0-17.5) gm/dL Chloride (98-107) mmol/L BUN (9-20) mg/dL Creatinine (0.66-1.25) mg/dL Glucose (74-99) mg/dL POC Glucose (mg/dL) 136 H 133 H (70-110) mg/dL Calcium (8.4-10.2) mg/dL AST (17-59) U/L ALT (4-49) U/L Creatine Kinase (55-170) U/L Total Protein (6.3-8.2) g/dL Albumin (3.5-5.0) g/dL Albumin (PEP) (3.80-4.90) g/dL Gamma Globulins (0.70-1.50) g/dL 06/10/24 06/10/24 06/10/24 Range/Units 03:53 04:53 06:39 RBC (4.30-5.90) m/uL Hgb (13.0-17.5) gm/dL Hct (39.0-53.0) % MCV (80.0-100.0) fL Neutrophils # (1.3-7.7) k/uL Lymphocytes # (1.0-4.8) k/uL ABG O2 Saturation 97.6 H (94-97) % Hemoglobin 11.5 L (13.0-17.5) gm/dL Chloride 114 H (98-107) mmol/L BUN 49 H (9-20) mg/dL Creatinine 2.42 H (0.66-1.25) mg/dL Glucose 116 H (74-99) mg/dL POC Glucose (mg/dL) 117 H (70-110) mg/dL Calcium 7.4 L (8.4-10.2) mg/dL AST 325 H (17-59) U/L ALT 344 H (4-49) U/L Creatine Kinase 6968 H* (55-170) U/L Total Protein 5.6 L (6.3-8.2) g/dL Albumin 2.6 L (3.5-5.0) g/dL Albumin (PEP) (3.80-4.90) g/dL Gamma Globulins (0.70-1.50) g/dL Microbiology - Last 24 Hours (Table) 06/06/24 15:24 Blood Culture - Preliminary Blood 06/06/24 05:48 Gram Stain - Final Sputum Sputum Culture - Final Haemophilus parainfluenzae
--- NOTE | 2024-06-10 10:05 | P.PN ---
Subjective Patient is seen in follow-up for acute kidney injury. Renal function improving. Nonoliguric. Receiving tube feeds. CK level trending down. On IV fluids. Vital signs are stable. General: Resting in bed. HEENT: Intubated. LUNGS: Scattered rhonchi. HEART: Rate and Rhythm are regular. ABDOMEN: No distention. EXTREMITITES: No edema. Objective - Vital Signs Vital signs: Vital Signs Temp 99.8 F H 06/10/24 00:00 Pulse 100 06/10/24 09:35 Resp 21 06/10/24 09:30 BP 132/66 06/10/24 09:00 Pulse Ox 95 06/10/24 09:30 FiO2 40 06/10/24 09:10 Intake & Output 06/09/24 06/10/24 06/10/24 18:59 06:59 18:59 Intake Total 2996.978 2736.233 639 Output Total 830 1540 450 Balance 2166.978 1196.233 189 Weight 74.8 kg Intake: IV 1750 2020 480 0.9% NS KVO 100 120 30 Ampicillin-Sulbactam 1.5 50 gm In Sodium Chloride 0.9 % 50 ml @ 100 mls/hr IVPB Q8HR [facility] Rx#:[id number] Sodium Chloride 0.9% 1, 1650 1800 450 000 ml @ 150 mls/hr IV . Q6H40M [facility] Rx#:[id number] Thiamine 250 mg In Sodium 50 Chloride 0.9% 50 ml @ 100 mls/hr IVPB TID [facility] Rx#:[id number] Intake, IV Titration 533.978 153.233 Amount Ampicillin-Sulbactam 1.5 100 gm In Sodium Chloride 0.9 % 50 ml @ 100 mls/hr IVPB Q8HR [facility] Rx#:[id number] Clevidipine Butyrate 25 163.933 153.233 mg In Empty Bag 1 bag @ 1 MG/HR 2 mls/hr IV .Q24H [facility] Rx#:[id number] Potassium Chloride 20 meq 100 In Water For Injection 1 100ml.bag @ 50 mls/hr IVPB Q2H [facility] Rx#: [id number] Thiamine 250 mg In Sodium 100 Chloride 0.9% 50 ml @ 100 mls/hr IVPB TID [facility] Rx#:[id number] propofoL 1,000 mg In 70.045 Empty Bag 1 bag @ 60 MCG/ KG/MIN 23.678 mls/hr IV . Q4H14M [facility] Rx#:[id number] Tube Feeding 473 473 129 Other 240 90 30 Output: Chest Tube Drainage 35 60 Chest Tube Right Lateral 35 60 Chest Urine 795 1480 450 Other: Voiding Method Indwelling Catheter Indwelling Catheter Indwelling Catheter ABP, PAP, CO, CI - Last Documented Arterial Blood Pressure 147/53 - Labs CBC & Chem 7: 06/10/24 03:53 06/10/24 03:53 Labs: Abnormal Lab Results - Last 24 Hours (Table) 06/08/24 06/09/24 06/09/24 Range/Units 12:54 04:50 11:25 RBC (4.30-5.90) m/uL Hgb (13.0-17.5) gm/dL Hct (39.0-53.0) % MCV (80.0-100.0) fL Neutrophils # (1.3-7.7) k/uL Lymphocytes # (1.0-4.8) k/uL ABG O2 Saturation (94-97) % Hemoglobin (13.0-17.5) gm/dL Chloride (98-107) mmol/L BUN (9-20) mg/dL Creatinine (0.66-1.25) mg/dL Glucose (74-99) mg/dL POC Glucose (mg/dL) 120 H (70-110) mg/dL Calcium (8.4-10.2) mg/dL AST (17-59) U/L ALT (4-49) U/L Creatine Kinase 96245 H* (55-170) U/L Total Protein (6.3-8.2) g/dL Albumin (3.5-5.0) g/dL Albumin (PEP) 2.54 L (3.80-4.90) g/dL Gamma Globulins 1.59 H (0.70-1.50) g/dL 06/09/24 06/09/24 06/10/24 Range/Units 17:51 23:22 03:53 RBC 3.64 L (4.30-5.90) m/uL Hgb 11.4 L (13.0-17.5) gm/dL Hct 36.5 L (39.0-53.0) % MCV 100.3 H (80.0-100.0) fL Neutrophils # 8.2 H (1.3-7.7) k/uL Lymphocytes # 0.7 L (1.0-4.8) k/uL ABG O2 Saturation (94-97) % Hemoglobin (13.0-17.5) gm/dL Chloride (98-107) mmol/L BUN (9-20) mg/dL Creatinine (0.66-1.25) mg/dL Glucose (74-99) mg/dL POC Glucose (mg/dL) 136 H 133 H (70-110) mg/dL Calcium (8.4-10.2) mg/dL AST (17-59) U/L ALT (4-49) U/L Creatine Kinase (55-170) U/L Total Protein (6.3-8.2) g/dL Albumin (3.5-5.0) g/dL Albumin (PEP) (3.80-4.90) g/dL Gamma Globulins (0.70-1.50) g/dL 06/10/24 06/10/24 06/10/24 Range/Units 03:53 04:53 06:39 RBC (4.30-5.90) m/uL Hgb (13.0-17.5) gm/dL Hct (39.0-53.0) % MCV (80.0-100.0) fL Neutrophils # (1.3-7.7) k/uL Lymphocytes # (1.0-4.8) k/uL ABG O2 Saturation 97.6 H (94-97) % Hemoglobin 11.5 L (13.0-17.5) gm/dL Chloride 114 H (98-107) mmol/L BUN 49 H (9-20) mg/dL Creatinine 2.42 H (0.66-1.25) mg/dL Glucose 116 H (74-99) mg/dL POC Glucose (mg/dL) 117 H (70-110) mg/dL Calcium 7.4 L (8.4-10.2) mg/dL AST 325 H (17-59) U/L ALT 344 H (4-49) U/L Creatine Kinase 6968 H* (55-170) U/L Total Protein 5.6 L (6.3-8.2) g/dL Albumin 2.6 L (3.5-5.0) g/dL Albumin (PEP) (3.80-4.90) g/dL Gamma Globulins (0.70-1.50) g/dL Microbiology - Last 24 Hours (Table) 06/06/24 15:24 Blood Culture - Preliminary Blood 06/06/24 05:48 Gram Stain - Final Sputum Sputum Culture - Final Haemophilus parainfluenzae Assessment and Plan Plan: Assessment: 1. Acute kidney injury secondary to ATN secondary to cardiac arrest and rhabdomyolysis. Unknown baseline renal function. Creatinine 3.67 on admission and 2.42 today. No hydronephrosis noted on kidney ultrasound. 2. Proteinuria and hematuria. Questionable GN. Patient does have history of hepatitis C. Also cocaine abuse which can cause vasculitis. Repeat UA shows 1+ protein with only 2 RBCs. 3. Rhabdomyolysis. CK levels trending down. 4. Status post cardiac arrest. 5. Acute IA status postcardiac catheterization with no intervention. Likely related to cocaine abuse. 6. Metabolic acidosis secondary to acute kidney injury. Improved. 7. Hyperphosphatemia secondary to acute kidney injury and rhabdomyolysis. Improved. Phosphorus level 4.4 today. 8. Mild hypernatremia from lack of oral water intake. Plan: Change IV fluids to half-normal saline to be run at 150 cc an hour. Continue to monitor CK levels. Follow-up serologies. C3 low. Hep C IgG antibody reactive. Rest negative. Continue to monitor renal function and urine output.
[2024-06-10] MEDS ORDERED: ZINC OXIDE PASTE (Z-GUARD) 1 APPLIC TOPICAL PRN (10:20)
[2024-06-10] MEDS: SODIUM CHLORIDE 0.45% 1,000 ML IV SCH (10:34)
[2024-06-10] MEDS: NOREPINEPHRINE 4 MG in SODIUM CHLORIDE 0.9% 250 ML IV SCH (11:23)
[2024-06-10 12:06] LABS: Glucose,Whole Blood 89 mg/dL (70-110)
--- NOTE | 2024-06-10 13:07 | P.PN ---
Subjective Progress Note Date: 06/10/24 I am following-up with patient and per nurse, he has been off IV sedation since yesterday. No improvement in his condition. Objective - Vital Signs Vital signs: Vital Signs Temp 99.8 F H 06/10/24 00:00 Pulse 105 H 06/10/24 12:16 Resp 13 06/10/24 11:00 BP 100/57 06/10/24 11:00 Pulse Ox 97 06/10/24 11:00 FiO2 40 06/10/24 12:01 Intake & Output 06/09/24 06/10/24 06/10/24 18:59 06:59 18:59 Intake Total 2996.978 2736.233 1195 Output Total 830 1540 600 Balance 2166.978 1196.233 595 Weight 74.8 kg Intake: IV 1750 2020 900 0.9% NS KVO 100 120 50 Ampicillin-Sulbactam 1.5 50 50 gm In Sodium Chloride 0.9 % 50 ml @ 100 mls/hr IVPB Q8HR [facility] Rx#:[id number] Sodium Chloride 0.9% 1, 1650 1800 750 000 ml @ 150 mls/hr IV . Q6H40M [facility] Rx#:[id number] Thiamine 250 mg In Sodium 50 50 Chloride 0.9% 50 ml @ 100 mls/hr IVPB TID [facility] Rx#:[id number] Intake, IV Titration 533.978 153.233 50 Amount Ampicillin-Sulbactam 1.5 100 gm In Sodium Chloride 0.9 % 50 ml @ 100 mls/hr IVPB Q8HR [facility] Rx#:[id number] Clevidipine Butyrate 25 163.933 153.233 50 mg In Empty Bag 1 bag @ 1 MG/HR 2 mls/hr IV .Q24H [facility] Rx#:[id number] Potassium Chloride 20 meq 100 In Water For Injection 1 100ml.bag @ 50 mls/hr IVPB Q2H [facility] Rx#: [id number] Thiamine 250 mg In Sodium 100 Chloride 0.9% 50 ml @ 100 mls/hr IVPB TID [facility] Rx#:[id number] propofoL 1,000 mg In 70.045 Empty Bag 1 bag @ 60 MCG/ KG/MIN 23.678 mls/hr IV . Q4H14M [facility] Rx#:[id number] Tube Feeding 473 473 215 Other 240 90 30 Output: Chest Tube Drainage 35 60 Chest Tube Right Lateral 35 60 Chest Urine 795 1480 600 Other: Voiding Method Indwelling Catheter Indwelling Catheter Indwelling Catheter ABP, PAP, CO, CI - Last Documented Arterial Blood Pressure 98/41 - Exam General: Lying in bed and does not appear in acute distress. HENT: Supple neck Lung: Intubated on ventilator. Neuro: Limited. Off IV sedation since yesterday. Patient is comatose. Patient is breathing over the vent. No eye twitching notes at baseline or to opening eyes. With suctioning him he had twitching of his chest. Manually open eyes and the pupils are pinpoint rou nd and primary gaze is midline. Is breathing over the vent. Motor: Unable to assess because of his overall condition. But no withdrawaling to painful stimuli. no jerking of any extremities. Tone is decreased throughout. Reflex: 0-1 throughout. Plantars are mute b/l. Some of the other workup during this hospital visit consisted of: MCV is 101 Creatinine is 3.67, sodium is 143, glucose on presentation is 163 Plasma lactic acid vein is 11.4, calcium 7.5, phosphorus 14.4, magnesium 3.4, AST is 499 and ALT is 171 TSH is 9.20 Serum B12: 735 Serum folate: 15.7 Ammonia: <9 AST and ALT levels are trending up CK is trending down CT head: No significant abnormality seen. There is no acute bleed or mass effect. Routine EEG: Is abnormal. The background slowing suggestive of moderate to severe encephalopathy. There are no focal slowing, epileptiform discharges or seizure on the EEG. Repeat routine EEG: Is abnormal. The background slowing is suggestive of moderate encephalopathy. There is no focal slowing, epileptiform discharges or seizure on the EEG. - Labs CBC & Chem 7: 06/10/24 03:53 06/10/24 03:53 Labs: Abnormal Lab Results - Last 24 Hours (Table) 06/08/24 06/09/24 06/09/24 Range/Units 12:54 17:51 23:22 RBC (4.30-5.90) m/uL Hgb (13.0-17.5) gm/dL Hct (39.0-53.0) % MCV (80.0-100.0) fL Neutrophils # (1.3-7.7) k/uL Lymphocytes # (1.0-4.8) k/uL ABG O2 Saturation (94-97) % Hemoglobin (13.0-17.5) gm/dL Chloride (98-107) mmol/L BUN (9-20) mg/dL Creatinine (0.66-1.25) mg/dL Glucose (74-99) mg/dL POC Glucose (mg/dL) 136 H 133 H (70-110) mg/dL Calcium (8.4-10.2) mg/dL AST (17-59) U/L ALT (4-49) U/L Creatine Kinase (55-170) U/L Total Protein (6.3-8.2) g/dL Albumin (3.5-5.0) g/dL Albumin (PEP) 2.54 L (3.80-4.90) g/dL Gamma Globulins 1.59 H (0.70-1.50) g/dL 06/10/24 06/10/24 06/10/24 Range/Units 03:53 03:53 04:53 RBC 3.64 L (4.30-5.90) m/uL Hgb 11.4 L (13.0-17.5) gm/dL Hct 36.5 L (39.0-53.0) % MCV 100.3 H (80.0-100.0) fL Neutrophils # 8.2 H (1.3-7.7) k/uL Lymphocytes # 0.7 L (1.0-4.8) k/uL ABG O2 Saturation 97.6 H (94-97) % Hemoglobin 11.5 L (13.0-17.5) gm/dL Chloride 114 H (98-107) mmol/L BUN 49 H (9-20) mg/dL Creatinine 2.42 H (0.66-1.25) mg/dL Glucose 116 H (74-99) mg/dL POC Glucose (mg/dL) (70-110) mg/dL Calcium 7.4 L (8.4-10.2) mg/dL AST 325 H (17-59) U/L ALT 344 H (4-49) U/L Creatine Kinase 6968 H* (55-170) U/L Total Protein 5.6 L (6.3-8.2) g/dL Albumin 2.6 L (3.5-5.0) g/dL Albumin (PEP) (3.80-4.90) g/dL Gamma Globulins (0.70-1.50) g/dL 06/10/24 Range/Units 06:39 RBC (4.30-5.90) m/uL Hgb (13.0-17.5) gm/dL Hct (39.0-53.0) % MCV (80.0-100.0) fL Neutrophils # (1.3-7.7) k/uL Lymphocytes # (1.0-4.8) k/uL ABG O2 Saturation (94-97) % Hemoglobin (13.0-17.5) gm/dL Chloride (98-107) mmol/L BUN (9-20) mg/dL Creatinine (0.66-1.25) mg/dL Glucose (74-99) mg/dL POC Glucose (mg/dL) 117 H (70-110) mg/dL Calcium (8.4-10.2) mg/dL AST (17-59) U/L ALT (4-49) U/L Creatine Kinase (55-170) U/L Total Protein (6.3-8.2) g/dL Albumin (3.5-5.0) g/dL Albumin (PEP) (3.80-4.90) g/dL Gamma Globulins (0.70-1.50) g/dL Microbiology - Last 24 Hours (Table) 06/06/24 15:24 Blood Culture - Preliminary Blood 06/06/24 05:48 Gram Stain - Final Sputum Sputum Culture - Final Haemophilus parainfluenzae Assessment and Plan Assessment: Is a 64-year-old gentleman with history of polysubstance abuse including heroin, cocaine, alcohol use who presented from [place] for witnessed cardiac arrest. Unknown exact story or duration of cardiac arrest. Unsure if the patient had syncopal episode that was convulsive that led to cardiac arrest or vice versa. As a result patient had CPR he was intubated in the field. The patient was found to be bradycardic and was given atropine. EKG shows concerning for anterior STEMI and patient was taken for cardiac It Consultant and the coronary arteries are patent. Outside hospital Cardiac arrest (duration for 20 minutes) Likely anoxic brain injury due to above. Also has some component of metabolic derangement that can also give metabolic encephalopathy. CT head is negative for acute or subacute process or bleed. Eye twitching examination likely due to above since patient had cerebral anoxia that can lead to seizures/myoclonic seizure--no seizure or discharges on the routine EEG. Had repeat EEG and was negative for discharges or seizure Elevated lactic acid level Elevated electrolyte levels such as phosphorus, magnesium Abnormal TSH Acute transaminitis--trending down Rhabdomyolysis--trending down Acute Kidney insufficiency--trending down Acute respiratory distress and the patient is intubated on the ventilator History of polysubstance use including heroin, cocaine and alcohol Plan: Keppra 500 mg twice daily and Vimpat 50 mg twice daily for his eyes twitching concerning for seizure/myoclonus seizure which was started on 06/06/2024. Patient is on thiamine 250 mg 3 times daily Nephrology team is on board Will defer the rest of the medical management to primary and other specialist Condition is critical. His overall prognosis is very poor. Plan discussed with ICU nurse. Time with Patient: Less than 30
--- NOTE | 2024-06-10 15:02 | P.PN ---
Subjective Progress Note Date: 06/10/24 Principal diagnosis: Cardiopulmonary arrest This is a 64-year-old male patient was in [place] and the patient was about to get discharged. He has history of polysubstance abuse including cocaine, heroin alcoholism. The patient developed some mental status change and subs equently the became bradycardic and the apparently collapsed and subsequently found to to be in cardiopulmonary arrest. The original rhythm information is not available. Please refer to the emergency notes. Apparently patient was found unresponsive and he stopped breathing and he collapsed. CPR was initiated by EMS. The patient was intubated on the route. Subsequently, CPR was continued in our emergency department. Initial EKG showed some ST segment elevation over the V1 and V2 leads. Based on that, the patient was taken immediately to the [facility] and underwent a cardiac catheterization that this showed essentially normal coronaries. The clinic pressures were also low. The patient was kept intubated and following that he was moved to the intensive care unit. At this point in time, the patient is intubated on mechanical ventilator. He is on propofol which is running at 60 mcg/kg/min is also on a Versed drip at 12 mg an hour. He is on assist-control mode of mechanical ventilation at rate of 18, tidal volume of 400, FiO2 50% with a PEEP of 5. Initial lactic acid level was 11.4 and dropped down to 7.7. Initial blood gases showed a pH of 7.06 with a pCO2 of 50 and pO2 more than 420. Subsequent blood gas showed a pH of 7.39 with a pCO2 of 39 and pO2 of 95 and this was verified to 50%. Chest x-ray showed no consolidation or airspace disease. The morning chest x-ray showed right-sided pneumothorax. Based on that, I inserted a 28 Japanese chest tube into the right hemithorax and a pneumothorax was drained. Chest tube is currently in place and the patient is positive airleak. Hemodynamically, the patient has no pressors. He is slightly hypothermic and his most recent temperature is at 95.5 degrees. The white cell count of 13.5 with a hemoglobin 17.5 and a platelet count of 315. The patient has sustained acute kidney injury with a BUN of 41 with a creatinine of 3.6 and urine output is only a (an hour. Serum bicarb is at 14 with an anion gap of 28. Sodium is at 143. AST is 499, ALT is 171, troponin is at 0.191 and proBNP level is 18,300. TSH is at 9.2. UA showed 28 RBCs and 71 WBCs. CAT scan of the brain has not been done. Neurologically, the patient is not withdrawing to painful stimulation. No seizure activity. Pupils are round 2 mm in size, symmetrical. Reflexes are quite diminished in all 4 EXTR. He is breathing about the mechanical ventilator. 06/07/2024, the patient remains intubated on mechanical ventilator. The patient is sedated with a combination of propofol running at 65 mcg/kg/min and Versed drip at 15 mg an hour. Patient is also on a combination of Vimpat and Keppra. Some twitching of the lip was noted, suspected seizures, suspected anoxic encephalopathy and the patient is having an EEG done today. Neurology is on the case. No active twitching or body jerks is noted on clinical examination today. Meanwhile, the patient is still on the mechanical ventilator. The patient is on a pressure control mode of mechanical ventilation at rate of 12, pressure control of 20, FiO2 50% with a PEEP of 5. Chest x-ray from today shows no acute abnormalities. The right-sided chest tube is in place. There is intermittent air leak and there is no evidence of any pneumothorax. ET tube is in good location. The patient's blood gas from today shows a pH of 7.6 with a pCO2 of 31 and a pO2 of 121. Bicarb drip has been discontinued and the patient is currently on half-normal saline which is running at 100 cc an hour. The patient sustained an acute rhabdomyolysis. Cardiac catheterization was negative for any coronary abnormalities. Echocardiogram was also done that showed a preserved LV function without any significant valvular abnormalities. Ejection fraction was around 65%. CAT scan of the brain was done and it showed no acute abnormalities. Ultrasound of the kidneys showed no hydronephrosis. The blood work from today shows a white cell count of 14.3 with a hemoglobin 15.8 and a platelet count of 232. Sodium is at 140 with a potassium level of 3.0. BUN is 59 with a creatinine of 2.9 and the patient is producing urine output. Urine drug screen was positive for cocaine and benzodiazepine. Afebrile. No other significant events noted overnight. Neurology on the case. Estimated downtime was around 17 and later on 30 minutes during which the patient received CPR. As such, high likelihood for an underlying anoxic encephalopathy. Patient was evaluated today on 06/08/2024, patient remains in the ICU, intubated and mechanically ventilated. He is on pressure control mode of mechanical ventilation, with PI of 20, TI of 0.9, FiO2 50% and I cut it down to 40% rate of 12 and PEEP of 5 ABG showed a pO2 of 116 pCO2 39 pH of 7.50. Looking back at the history, patient had cardiac arrest x 2 CPR for 17 minutes on 06/06. He may have sustained some anoxic brain injury patient is on vital AF at 40 cc/h IV fluid at 100 cc/h which I increased to 150 cc/h remains on Versed at 1 mg/h and propofol at 50 mcg/kg/min. Patient is on Unasyn, his CPK is improving but nonetheless remains over 20,000. Patient is not requiring any pressors he is on Cleviprex at 8 g/h. Show reviewed WBC count is 12.4 hemoglobin 13.4 electrolytes are normal bicarb is 33 BUN is 54 creatinine 3.12 CPK is 20,686. Her enzymes are also elevated with AST of 1151 and ALT of 818 Patient was evaluated today on 06/09/2024, remains intubated clinically ventilated, unresponsive to any stimuli, patient will be taken off sedati on/propofol to address mental status, I strongly suspect that the patient may have sustained severe anoxic brain injury. He is on pressure control mode of mechanical ventilation with rate of 12 pressure control of 20 T1 of 0.90 ABG showed a pO2 of 82 pCO2 32 pH of 7.50 hence no changes were made in vent settings. Continues to have chest tube in place and there is tiny air leak noted. Patient remains on Unasyn he is also on propofol at 50 mg/kg/min Cleviprex at 5 mg/h IV fluid at 150 cc/h vital AF at 43 cc/h. WBC count is 14.3 hemoglobin 12.1. Electrolytes are normal, BUN is 48 creatinine 2.71 steadily improving compared to 3.67 few days ago. CPK is coming down to 12,000 and liver enzymes are improving with AST down to 486 and ALT is 471. Total bilirubin is 1.1 chest x-ray shows no evidence of pneumothorax, chest tube is in the right place, there is possibly a small left lower lobe atelectasis and small pleural effusion Patient elevated today on 06/10/2024, remains in the ICU intubated and mechanically ventilated, off sedation. No neurological responses except the patient does have a weak gag reflex. Obviously the patient possibly sustained significant anoxic brain injury but definitely is not brain . Seen by neurology, and feels the prognosis extremely poor at this point, hence we will try to approach the family regarding either tracheostomy and PEG tube placement or comfort care measures/terminal weaning. Patient is on control mode of mechanical ventilation, PPI is 20 inspiratory T10.9 FiO2 40% PEEP of 5 rate of 12. ABG showed a pO2 of 96 pCO2 36 pH of 7.41 hence no changes were made in vent settings. Patient remains off propofol today, his IV fluids at 0.45 at 150 cc/h. He is off Cleviprex, blood pressure seems to be marginal/low because he received multiple meds for high blood pressure given to him by cardiology. He is on Unasyn, is also on Cardizem. Overall picture does not look very promising. Chest x-ray is suspicious for bibasilar atelectasis and/or possible bibasilar pneumonia/aspiration pneumonia CBC is relatively normal basic metabol ic profile showed elevated sodium of 145 BUN is 49 creatinine 2.42 CPK trending down to 6968 liver enzymes remain a bit elevated renal functioning is improving with creatinine down to 2.42 from 3.67 on 06/06 Objective - Vital Signs Vital signs: Vital Signs Temp 99.0 F 06/10/24 12:00 Pulse 92 06/10/24 14:15 Resp 12 06/10/24 14:15 BP 122/70 06/10/24 14:15 Pulse Ox 100 06/10/24 14:15 FiO2 40 06/10/24 12:01 Intake & Output 06/09/24 06/10/24 06/10/24 18:59 06:59 18:59 Intake Total 2996.978 2736.233 1862.358 Output Total 830 1540 825 Balance 2166.978 3540.545 2110.358 Weight 74.8 kg Intake: IV 1752019 1380 0.9% NS KVO 100 120 80 Ampicillin-Sulbactam 1.5 50 50 gm In Sodium Chloride 0.9 % 50 ml @ 100 mls/hr IVPB Q8HR [facility] Rx#:[id number] Sodium Chloride 0.45% 1, 600 000 ml @ 150 mls/hr IV . Q6H40M [facility] Rx#:[id number] Sodium Chloride 0.9% 1, 1650 1800 600 000 ml @ 150 mls/hr IV . Q6H40M [facility] Rx#:[id number] Thiamine 250 mg In Sodium 50 50 Chloride 0.9% 50 ml @ 100 mls/hr IVPB TID [facility] Rx#:[id number] Intake, IV Titration 533.978 153.233 78.358 Amount Ampicillin-Sulbactam 1.5 100 gm In Sodium Chloride 0.9 % 50 ml @ 100 mls/hr IVPB Q8HR [facility] Rx#:[id number] Clevidipine Butyrate 25 163.933 153.233 50 mg In Empty Bag 1 bag @ 1 MG/HR 2 mls/hr IV .Q24H [facility] Rx#:[id number] Norepinephrine 4 mg In 28.358 Sodium Chloride 0.9% 250 ml @ 0.03 MCG/KG/MIN 8.55 mls/hr IV .Q24H [facility] Rx#: [id number] Potassium Chloride 20 meq 100 In Water For Injection 1 100ml.bag @ 50 mls/hr IVPB Q2H [facility] Rx#: [id number] Thiamine 250 mg In Sodium 100 Chloride 0.9% 50 ml @ 100 mls/hr IVPB TID [facility] Rx#:[id number] propofoL 1,000 mg In 70.045 Empty Bag 1 bag @ 60 MCG/ KG/MIN 23.678 mls/hr IV . Q4H14M [facility] Rx#:[id number] Tube Feeding 473 473 344 Other 240 90 60 Output: Chest Tube Drainage 35 60 Chest Tube Right Lateral 35 60 Chest Urine 795 1480 825 Other: Voiding Method Indwelling Catheter Indwelling Catheter Indwelling Catheter ABP, PAP, CO, CI - Last Documented Arterial Blood Pressure 131/55 - Exam General: Reveals 64-year-old -[place] male, intubated, mechanically ventilated, unresponsive to any stimuli. Patient has a weak gag reflex he is off sedation Head exam atraumatic, normocephalic. Endotracheal tube and orogastric tube are intact. Neck supple no neck masses no JVD, right IJ triple-lumen catheter in place Lung: Diminished breath sound bilaterally right-sided chest tube in place, continues to have some air leak. Abdominal exam flat soft nontender no megaly no rebound or guarding, positive bowel sounds Examination no clubbing edema or cyanosis, good pulses bilaterally. Examination of the skin revealed no evidence of significant rashes Neuro:Limited. No evidence of any significant neurological responses except weak gag reflex. Pupils remain pinpoint. Motor: Unable to assess - Labs CBC & Chem 7: 06/10/24 03:53 06/10/24 03:53 Labs: Abnormal Lab Results - Last 24 Hours (Table) 06/08/24 06/09/24 06/09/24 Range/Units 12:54 17:51 23:22 RBC (4.30-5.90) m/uL Hgb (13.0-17.5) gm/dL Hct (39.0-53.0) % MCV (80.0-100.0) fL Neutrophils # (1.3-7.7) k/uL Lymphocytes # (1.0-4.8) k/uL ABG O2 Saturation (94-97) % Hemoglobin (13.0-17.5) gm/dL Chloride (98-107) mmol/L BUN (9-20) mg/dL Creatinine (0.66-1.25) mg/dL Glucose (74-99) mg/dL POC Glucose (mg/dL) 136 H 133 H (70-110) mg/dL Calcium (8.4-10.2) mg/dL AST (17-59) U/L ALT (4-49) U/L Creatine Kinase (55-170) U/L Total Protein (6.3-8.2) g/dL Albumin (3.5-5.0) g/dL Albumin (PEP) 2.54 L (3.80-4.90) g/dL Gamma Globulins 1.59 H (0.70-1.50) g/dL 06/10/24 06/10/24 06/10/24 Range/Units 03:53 03:53 04:53 RBC 3.64 L (4.30-5.90) m/uL Hgb 11.4 L (13.0-17.5) gm/dL Hct 36.5 L (39.0-53.0) % MCV 100.3 H (80.0-100.0) fL Neutrophils # 8.2 H (1.3-7.7) k/uL Lymphocytes # 0.7 L (1.0-4.8) k/uL ABG O2 Saturation 97.6 H (94-97) % Hemoglobin 11.5 L (13.0-17.5) gm/dL Chloride 114 H (98-107) mmol/L BUN 49 H (9-20) mg/dL Creatinine 2.42 H (0.66-1.25) mg/dL Glucose 116 H (74-99) mg/dL POC Glucose (mg/dL) (70-110) mg/dL Calcium 7.4 L (8.4-10.2) mg/dL AST 325 H (17-59) U/L ALT 344 H (4-49) U/L Creatine Kinase 6968 H* (55-170) U/L Total Protein 5.6 L (6.3-8.2) g/dL Albumin 2.6 L (3.5-5.0) g/dL Albumin (PEP) (3.80-4.90) g/dL Gamma Globulins (0.70-1.50) g/dL 06/10/24 Range/Units 06:39 RBC (4.30-5.90) m/uL Hgb (13.0-17.5) gm/dL Hct (39.0-53.0) % MCV (80.0-100.0) fL Neutrophils # (1.3-7.7) k/uL Lymphocytes # (1.0-4.8) k/uL ABG O2 Saturation (94-97) % Hemoglobin (13.0-17.5) gm/dL Chloride (98-107) mmol/L BUN (9-20) mg/dL Creatinine (0.66-1.25) mg/dL Glucose (74-99) mg/dL POC Glucose (mg/dL) 117 H (70-110) mg/dL Calcium (8.4-10.2) mg/dL AST (17-59) U/L ALT (4-49) U/L Creatine Kinase (55-170) U/L Total Protein (6.3-8.2) g/dL Albumin (3.5-5.0) g/dL Albumin (PEP) (3.80-4.90) g/dL Gamma Globulins (0.70-1.50) g/dL Microbiology - Last 24 Hours (Table) 06/06/24 15:24 Blood Culture - Preliminary Blood Assessment and Plan Assessment: Impression: Acute cardiopulmonary arrest. Exact cause is not clear. Prolonged downtime, mostly over 17-minute this could have been related to an acute drug overdose as the patient had to stop breathing and subsequently went into cardiopulmonary arrest. ST segment elevations with normal coronaries based on the coronary angiogram, echocardiogram was completed and the patient has a normal LV function. Acute unresponsiveness, postcardiac arrest and the patient had a negative CAT scan of the brain. Acute respiratory failure, nonhypoxic, hypercapnic, currently intubated on mechanical ventilator Right-sided pneumothorax likely related to CPR or right IJ line placement, patient continues to have right-sided chest tube in place. Minimal air leak noted Polysubstance abuse including cocaine, heroin and alcoholism Acute metabolic encephalopathy Acute rhabdomyolysis, CPK is steadily trending down. Acute kidney injury, improving as the patient is getting more fluids and CPK is improving Abnormal LFTs could be related to alcoholism. Steadily improving anoxic brain injury related to prolonged downtime from cardiopulmonary arrest Recommendation: Continue ventilatory support Continue patient off sedation Continue IV fluids Continue Unasyn for presumptive aspiration pneumonia Continue to monitor CPK and renal profile as well as liver status GI and DVT prophylaxis Nutritional support/enteral feeding Will have to approach the family regarding CODE STATUS and possibly consider comfort care measures or consider proceeding to tracheostomy and PEG tube placement Patient remains critically ill, and will continue to follow Patient is not weanable considering his overall neurological status This will be discussed with family and hopefully either proceed with comfort care measures or proceed to tracheostomy and PEG tube placement Critical care time is over 30-minute Time with Patient: Greater than 30
[2024-06-10 17:57] LABS: Glucose,Whole Blood 96 mg/dL (70-110)
[2024-06-10 23:29] LABS: Glucose,Whole Blood 75 mg/dL (70-110)
[2024-06-11 04:47] LABS: Basophils # (A) 0.1 k/uL (0-0.2); Basophils % (A) 1 %; Eosinophils # (A) 0.3 k/uL (0-0.7); Eosinophils % (A) 5 %; HCT 33.2 % (39.0-53.0); HGB 10.3 gm/dL (13.0-17.5); Hypochromasia Marked; Lymphocytes # (A) 0.8 k/uL (1.0-4.8); Lymphocytes % (A) 14 %; MCH 31.8 pg (25.0-35.0); MCHC 30.8 g/dL (31.0-37.0); MCV 103.2 fL (80.0-100.0); Macrocytosis Slight; Mean Platelet Volume 10.2; Monocytes # (A) 0.3 k/uL (0-1.0); Monocytes % (A) 6 %; Neutrophils # (A) 4.2 k/uL (1.3-7.7); Neutrophils % (A) 72 %; Platelet Count 184 k/uL (150-450); RBC 3.22 m/uL (4.30-5.90); RDW 12.8 % (11.5-15.5); WBC 5.8 k/uL (3.8-10.6)
[2024-06-11 05:14] LABS: ALT 251 U/L (4-49); AST 189 U/L (17-59); African American GFR (CKD) 35 (>60 ml/min/1.73 sqM); Albumin 2.2 g/dL (3.5-5.0); Alkaline Phosphatase 48 U/L (38-126); Anion Gap 2 mmol/L; Blood Urea Nitrogen 54 mg/dL (9-20); Calcium 7.9 mg/dL (8.4-10.2); Carbon Dioxide 24 mmol/L (22-30); Chloride 126 mmol/L (98-107); Glucose 89 mg/dL (74-99); Magnesium 2.4 mg/dL (1.6-2.3); Non-African American GFR(CKD) 30 (>60 ml/min/1.73 sqM); Potassium 4.6 mmol/L (3.5-5.1); Sodium 152 mmol/L (137-145); Total Bilirubin 0.8 mg/dL (0.2-1.3); Total Protein 5.1 g/dL (6.3-8.2)
[2024-06-11 05:33] LABS: Glucose,Whole Blood 84 mg/dL (70-110)
[2024-06-11 05:41] LABS: ABG Base Excess -7.3 mmol/L; ABG HCO3 19 mmol/L (21-25); ABG Oxygen Saturation 98.2 % (94-97); ABG PCO2 39 mmHg (35-45); ABG PH 7.29 (7.35-7.45); ABG PO2 110 mmHg (83-108); ABG TCO2 20 mmol/L (19-24); Allen Test Performed? Yes
[2024-06-11 05:50] LABS: Creatine Kinase 2499 U/L (55-170)
--- NOTE | 2024-06-11 07:53 | P.PN ---
Subjective Progress Note Date: 06/11/24 Principal diagnosis: Hypertension emergency This is a 64-year-old -[place] gentleman with a past medical history significant for history of alcohol use and drug use who was admitted to the hospital after he had cardiopulmonary arrest. Subsequently the EKG showed finding concerning for acute coronary syndrome. He underwent a heart catheterization which revealed no evidence of obstructive coronary artery disease. Subsequently the patient was intubated and placed on mechanical ventilation. June 08, 2024 He was seen and evaluated. He continues to be sedated. He continues to be on mechanical ventilation. The pressure remains elevated and currently he is on clevidipine IV. Hydralazine was initiated earlier today. Am going to increase the dose of hydralazine and add clonidine patches to the current medical regimen. The echo showed preserved LV systolic function with severe hypertensive heart disease. The examination is remarkable for regular rhythm with a systolic murmur at the right upper sternal border and clear breathing sounds bilaterally and no edema was noted in the lower extremities. Please note that the patient was also in renal failure. June 09, 2024 The patient was seen and evaluated this morning. He continues to be intubated on mechanical ventilation. The pressure remains elevated and he was started on Cleviprex. Meanwhile I am going to increase the dose of hydralazine to 100 mg p.o. 4 times daily. He is going through what is seems to be withdrawal which could be contributing to the elevated blood pressure. The examination is remarkable for regular rhythm with a systolic murmur at the right and left upper sternal border with clear breathing sounds bilaterally and no edema was noted June 10, 2024 The patient was seen and evaluated this morning. He continues to be intubated on mechanical ventilation but he is not waking up and there is a concern about encephalopathy with the pressure remains elevated. Am going to increase the dose of the clonidine patch and also start the patient on calcium channel leanna using Cardizem and try to wean the patient from Cardizem IV using clevidipine. The physical examination is remarkable for regular rhythm with a soft systolic murmur and clear breathing sounds bilaterally and no edema was noted in the lower extremities June 11, 2024 The patient was seen and evaluated this morning. He continues to be intubated on mechanical ventilation but he is not waking up and there is a concern about encephalopathy with the pressure is low. The physical examination is remarkable for regular rhythm with a soft systolic murmur and clear breathing sounds bilaterally and no edema was noted in the lower extremities Assessment Cardiopulmonary arrest Acute coronary syndrome Hypotension Renal failure History of drug abuse History of alcohol use Plan Continue hemodynamic support Folow up Objective - Vital Signs Vital signs: Vital Signs Temp 98 F 06/11/24 04:00 Pulse 66 06/11/24 07:00 Resp 12 06/11/24 07:00 BP 105/67 06/10/24 23:15 Pulse Ox 100 06/11/24 07:00 FiO2 40 06/11/24 04:00 Intake & Output 06/10/24 06/11/24 06/11/24 18:59 06:59 18:59 Intake Total 2828.470 2411.378 203 Output Total 1275 2475 170 Balance 1553.470 -63.622 33 Weight 74.7 kg Intake: IV 2020 1810 160 0.9% NS KVO 120 110 10 Ampicillin-Sulbactam 1.5 50 gm In Sodium Chloride 0.9 % 50 ml @ 100 mls/hr IVPB Q8HR [facility] Rx#:[id number] Sodium Chloride 0.45% 1, 1200 1650 150 000 ml @ 150 mls/hr IV . Q6H40M [facility] Rx#:[id number] Sodium Chloride 0.9% 1, 600 000 ml @ 150 mls/hr IV . Q6H40M [facility] Rx#:[id number] Thiamine 250 mg In Sodium 50 50 Chloride 0.9% 50 ml @ 100 mls/hr IVPB TID [facility] Rx#:[id number] Intake, IV Titration 202.470 38.378 Amount Clevidipine Butyrate 25 50 mg In Empty Bag 1 bag @ 1 MG/HR 2 mls/hr IV .Q24H [facility] Rx#:[id number] Norepinephrine 4 mg In 152.470 38.378 Sodium Chloride 0.9% 250 ml @ 0.03 MCG/KG/MIN 8.55 mls/hr IV .Q24H [facility] Rx#: [id number] Tube Feeding 516 473 43 Other 90 90 Output: Chest Tube Drainage 20 Chest Tube Right Lateral 20 Chest Urine 1275 2475 150 Other: Voiding Method Indwelling Catheter Indwelling Catheter ABP, PAP, CO, CI - Last Documented Arterial Blood Pressure 108/55 - Labs CBC & Chem 7: 06/11/24 04:36 06/11/24 04:36 Labs: Abnormal Lab Results - Last 24 Hours (Table) 06/11/24 06/11/24 06/11/24 Range/Units 04:36 04:36 05:38 RBC 3.22 L (4.30-5.90) m/uL Hgb 10.3 L (13.0-17.5) gm/dL Hct 33.2 L (39.0-53.0) % MCV 103.2 H (80.0-100.0) fL MCHC 30.8 L (31.0-37.0) g/dL Lymphocytes # 0.8 L (1.0-4.8) k/uL ABG pH 7.29 L (7.35-7.45) ABG pO2 110 H (83-108) mmHg ABG HCO3 19 L (21-25) mmol/L ABG O2 Saturation 98.2 H (94-97) % Hemoglobin 8.9 L (13.0-17.5) gm/dL Sodium 152 H (137-145) mmol/L Chloride 126 H (98-107) mmol/L BUN 54 H (9-20) mg/dL Creatinine 2.20 H (0.66-1.25) mg/dL Calcium 7.9 L (8.4-10.2) mg/dL Magnesium 2.4 H (1.6-2.3) mg/dL AST 189 H (17-59) U/L ALT 251 H (4-49) U/L Creatine Kinase 2499 H* (55-170) U/L Total Protein 5.1 L (6.3-8.2) g/dL Albumin 2.2 L (3.5-5.0) g/dL Microbiology - Last 24 Hours (Table) 06/06/24 15:24 Blood Culture - Preliminary Blood
--- NOTE | 2024-06-11 08:16 | XR ---
EXAMINATION TYPE: XR chest 1V portable DATE OF EXAM: 06/11/2024 COMPARISON: 06/10/2024 HISTORY: SOB, Follow Up FINDINGS: Indwelling tubes and catheters are unchanged. Basilar infiltrate and/or atelectasis in the eye lateral pleural effusions. Right sided chest tube wi thout pneumothorax. Stable appearance of the cardio-mediastinal structures at this time. Pleural effusion unchanged. IMPRESSION: 1. Stable portable chest. Clinical correlation and follow up until resolution is recommended.
[2024-06-11 09:25] VITALS: BP 102/64
[2024-06-11] MEDS: NOREPINEPHRINE 4 MG in SODIUM CHLORIDE 0.9% 250 ML IV SCH (10:15)
--- NOTE | 2024-06-11 10:42 | P.PN ---
Subjective Patient is seen in follow-up for acute kidney injury. Renal function improving. Nonoliguric. Receiving tube feeds. CK level trending down. On IV fluids. Sodium level 152 today. Vital signs are stable. General: Resting in bed. HEENT: Intubated. LUNGS: Scattered rhonchi. HEART: Rate and Rhythm are regular. ABDOMEN: No distention. EXTREMITITES: No edema. Objective - Vital Signs Vital signs: Vital Signs Temp 98 F 06/11/24 04:00 Pulse 65 06/11/24 10:00 Resp 12 06/11/24 10:00 BP 102/64 06/11/24 09:00 Pulse Ox 100 06/11/24 10:00 FiO2 40 06/11/24 08:15 Intake & Output 06/10/24 06/11/24 06/11/24 18:59 06:59 18:59 Intake Total 2828.470 2411.378 939 Output Total 1275 2475 670 Balance 1553.470 -63.622 269 Weight 74.7 kg Intake: IV 2020 1810 740 0.9% NS KVO 120 110 40 Ampicillin-Sulbactam 1.5 50 50 gm In Sodium Chloride 0.9 % 50 ml @ 100 mls/hr IVPB Q8HR [facility] Rx#:[id number] Sodium Chloride 0.45% 1, 1200 1650 600 000 ml @ 150 mls/hr IV . Q6H40M [facility] Rx#:[id number] Sodium Chloride 0.9% 1, 600 000 ml @ 150 mls/hr IV . Q6H40M [facility] Rx#:[id number] Thiamine 250 mg In Sodium 50 50 50 Chloride 0.9% 50 ml @ 100 mls/hr IVPB TID [facility] Rx#:[id number] Intake, IV Titration 202.470 38.378 Amount Clevidipine Butyrate 25 50 mg In Empty Bag 1 bag @ 1 MG/HR 2 mls/hr IV .Q24H [facility] Rx#:[id number] Norepinephrine 4 mg In 152.470 38.378 Sodium Chloride 0.9% 250 ml @ 0.03 MCG/KG/MIN 8.55 mls/hr IV .Q24H [facility] Rx#: [id number] Tube Feeding 516 473 169 Other 90 90 30 Output: Chest Tube Drainage 20 Chest Tube Right Lateral 20 Chest Urine 1275 2475 650 Other: Voiding Method Indwelling Catheter Indwelling Catheter Indwelling Catheter ABP, PAP, CO, CI - Last Documented Arterial Blood Pressure 102/51 - Labs CBC & Chem 7: 06/11/24 04:36 06/11/24 04:36 Labs: Abnormal Lab Results - Last 24 Hours (Table) 06/11/24 06/11/24 06/11/24 Range/Units 04:36 04:36 05:38 RBC 3.22 L (4.30-5.90) m/uL Hgb 10.3 L (13.0-17.5) gm/dL Hct 33.2 L (39.0-53.0) % MCV 103.2 H (80.0-100.0) fL MCHC 30.8 L (31.0-37.0) g/dL Lymphocytes # 0.8 L (1.0-4.8) k/uL ABG pH 7.29 L (7.35-7.45) ABG pO2 110 H (83-108) mmHg ABG HCO3 19 L (21-25) mmol/L ABG O2 Saturation 98.2 H (94-97) % Hemoglobin 8.9 L (13.0-17.5) gm/dL Sodium 152 H (137-145) mmol/L Chloride 126 H (98-107) mmol/L BUN 54 H (9-20) mg/dL Creatinine 2.20 H (0.66-1.25) mg/dL Calcium 7.9 L (8.4-10.2) mg/dL Magnesium 2.4 H (1.6-2.3) mg/dL AST 189 H (17-59) U/L ALT 251 H (4-49) U/L Creatine Kinase 2499 H* (55-170) U/L Total Protein 5.1 L (6.3-8.2) g/dL Albumin 2.2 L (3.5-5.0) g/dL Assessment and Plan Plan: Assessment: 1. Acute kidney injury secondary to ATN secondary to cardiac arrest and rhabdomyolysis. Unknown baseline renal function. Creatinine 3.67 on admission and 2.2 today. No hydronephrosis noted on kidney ultrasound. 2. Proteinuria and hematuria. Questionable GN. Patient does have history of hepatitis C. Also cocaine abuse which can cause vasculitis. Repeat UA shows 1+ protein with only 2 RBCs. 3. Rhabdomyolysis. CK levels trending down. 4. Status post cardiac arrest. 5. Acute NE status postcardiac catheterization with no intervention. Likely related to cocaine abuse. 6. Metabolic acidosis secondary to acute kidney injury. Improved. 7. Hyperphosphatemia secondary to acute kidney injury and rhabdomyolysis. Improved. Phosphorus level 4.4 dated June 10, 2024. 8. Hypernatremia from lack of oral water intake. Plan: Change IV fluids to D5W to be run at 125 cc an hour. Repeat sodium level this evening. Follow-up serologies. C3 low. Hep C IgG antibody reactive. Rest negative. Continue to monitor renal function and urine output. Wean FiO2.
[2024-06-11 11:04] VITALS: BMI 25.0
[2024-06-11] MEDS: DEXTROSE 5% IN WATER 1,000 ML IV SCH (11:25)
[2024-06-11 12:48] LABS: Glucose,Whole Blood 92 mg/dL (70-110)
--- NOTE | 2024-06-11 13:35 | P.PN ---
Subjective Progress Note Date: 06/11/24 64-year-old male with history of polysubstance abuse including heroin, cocaine, alcohol presenting from [place] for witnessed cardiac arrest on 06/06. Unknown downtime. Per report, patient possibly had seizure-like activity after having a cardiac arrest. He had multiple rounds of CPR and was intubated in the field. After getting to the hospital, he was found to be bradycardic for which he was given atropine. EKG concerning for anterior STEMI with ST elevations in aVR and V1, patient taken directly to [facility], coronary arteries are patent. Patient now in the ICU. Initial vitals BP 61/38, mechanically ventilated, RR 16, HR 119, T 96.8F. CBC, Coag panel, CMP significant for WBC 13.5, Hct 54.3, MCV 101.2, PT 13.1, INR 1.2, bicarb 14, BUN 41, Cr 3.67. glu 163, Ca 10.5, AST 499, ALT 171, total protein 8.9. Lactic acid 11.4. Phos 14.4. Mag 3.4. Troponin 0.191. BNP 13551. TSH 9.22. CXR no acute findings, ET tube, central line, NG tube in place. ICU, nephrology, neurology, cardiology on board. Echo EF 65-70% severe LV thickness. CXR showed right PTX, status post chest tube on 06/06. Brain CT negative. EEG mod-severe encephalopathy. Started on Unasyn empirically. CPK 13615 06/07 and Cr 3.67 / improved with IV hydration. Weaned off propofol, had some tremors thought to be related to withdrawal, started on Ativan PRN. Cardiology managing elevated BP. Weaned off Propofol over the past 48H with no significant improvement in mentation. 06/11 Patient was seen and examined. Intubated. Off Clevidipine, Cardizem/Clonidine patch/Cardizem held due to hypotension. Antibiotics include Unasyn 3g IV TID. CBC, CMP significant for RBC 3.22, Hg 10.3, Hct 33.2, MCV 103.2, Na 152, Cl 126, BUN 54, Cr 2.2, Ca 7.9, AST 189, ALT 251, alb 2.2. CPK 2499. ABG pH 7.29, pO2 110, pCO2 39 FiO2 40. CXR shows R chest tube with no PTX, ET tube, NG tube, central venous catheter in place. T 98F, BP 109/55, HR 66, RR 12, 100% FiO2 40. General: Intubated Derm: warm, dry Head: atraumatic, normocephalic, symmetric Eyes: no lid lag, anicteric sclera Mouth: no lip lesion, mucus membranes moist Cardiovascular: S1 S2 reg. + systolic murmurs, rubs or gallops. No LE edema Lungs: Decreased BS bilaterally, no accessory muscle use Ext: No muscle atrophy Neuro: Intubated Psych: Intubated Right chest tube in place Based on my assessment of this patient, this patient meets a high complexity level of care. [id number] cardiac arrest: Unknown etiology. Possible related to cocaine use. Cath negative. Concern for PE less likely. Cardiology on board. Acute anterior STEMI Acute metabolic encephalopathy: Concern for anxoic brain injury. CT brain negative. EEG mod-severe encephalopathy. Ammonia negative. Seizure like activity witnessed. Vimpat 50 mg IV BID, Keppra 500 mg IV BID. Neurology on board. Acute respiratory failure: Vent managed by Pulmonary. Right pneumothorax status post chest tube 06/06 Hypernatremia: NS switched to 1/2 NS running at 150 cc/hr. Acute rhabdomyolysis: IV hydration as above. Trend CPK. Monitor renal function. Sepsis: Sputum Cx H. parainfluenza. UCx negative. BCx negative so far. Unasyn 3g IV TID. Hypertensive emergency now Hypotensive: Clevidipine drip discontinued. Hydralazi ne, Clonidine patch, Cardizem on hold. Transaminitis likely shock liver with Hep B + C positive. Nonoliguric JAYASHREE: IV hydration as above. Nephrology on board. History of polysubstance abuse: UDS + benzo + cocaine. Euthyroid sick syndrome: TSH 9.22. Resolved: Cardiogenic versus hypovolemic shock, high AG met acidosis, Hypertensive emergency Patient has been off Propofol over the past 48H with no meaningful recovery in mentation. He had a weak gag reflex. Prognosis is extremely poor. Will attempt to discus with family. CODE STATUS: FULL CODE DVT Prophylaxis: Heparin SQ GI Prophylaxis: Protonix IV Designated medical POA if patient is not able to make medical decisions for themselves: I have reviewed the following intelligence consultant notes: Pulmonary, Cardiology, Neurology, Nephrology I have reviewed the results of the following tests: CBC, CMP, ABG, CPK I have ordered the following tests: I have discussed the care of this patient with the following independent historian: I have independently interpreted the following test below: CXR I have discussed the management of this patient with the following physician: Dr. Post Objective - Vital Signs Vital signs: Vital Signs Temp 98 F 06/11/24 04:00 Pulse 64 06/11/24 08:24 Resp 12 06/11/24 07:00 BP 105/67 06/10/24 23:15 Pulse Ox 100 06/11/24 07:00 FiO2 40 06/11/24 08:15 Intake & Output 06/10/24 06/11/24 06/11/24 18:59 06:59 18:59 Intake Total 2828.470 2411.378 203 Output Total 1275 2475 170 Balance 1553.470 -63.622 33 Weight 74.7 kg Intake: IV 2020 1810 160 0.9% NS KVO 120 110 10 Ampicillin-Sulbactam 1.5 50 gm In Sodium Chloride 0.9 % 50 ml @ 100 mls/hr IVPB Q8HR BEV Rx#:[id number] Sodium Chloride 0.45% 1, 1200 1650 150 000 ml @ 150 mls/hr IV . Q6H40M BEV Rx#:[id number] Sodium Chloride 0.9% 1, 600 000 ml @ 150 mls/hr IV . Q6H40M BEV Rx#:[id number] Thiamine 250 mg In Sodium 50 50 Chloride 0.9% 50 ml @ 100 mls/hr IVPB TID BEV Rx#:[id number] Intake, IV Titration 202.470 38.378 Amount Clevidipine Butyrate 25 50 mg In Empty Bag 1 bag @ 1 MG/HR 2 mls/hr IV .Q24H BEV Rx#:[id number] Norepinephrine 4 mg In 152.470 38.378 Sodium Chloride 0.9% 250 ml @ 0.03 MCG/KG/MIN 8.55 mls/hr IV .Q24H BEV Rx#: [id number] Tube Feeding 516 473 43 Other 90 90 Output: Chest Tube Drainage 20 Chest Tube Right Lateral 20 Chest Urine 1275 2475 150 Other: Voiding Method Indwelling Catheter Indwelling Catheter ABP, PAP, CO, CI - Last Documented Arterial Blood Pressure 108/55 - Labs CBC & Chem 7: 06/11/24 04:36 06/11/24 04:36 Labs: Abnormal Lab Results - Last 24 Hours (Table) 06/11/24 06/11/24 06/11/24 Range/Units 04:36 04:36 05:38 RBC 3.22 L (4.30-5.90) m/uL Hgb 10.3 L (13.0-17.5) gm/dL Hct 33.2 L (39.0-53.0) % MCV 103.2 H (80.0-100.0) fL MCHC 30.8 L (31.0-37.0) g/dL Lymphocytes # 0.8 L (1.0-4.8) k/uL ABG pH 7.29 L (7.35-7.45) ABG pO2 110 H (83-108) mmHg ABG HCO3 19 L (21-25) mmol/L ABG O2 Saturation 98.2 H (94-97) % Hemoglobin 8.9 L (13.0-17.5) gm/dL Sodium 152 H (137-145) mmol/L Chloride 126 H (98-107) mmol/L BUN 54 H (9-20) mg/dL Creatinine 2.20 H (0.66-1.25) mg/dL Calcium 7.9 L (8.4-10.2) mg/dL Magnesium 2.4 H (1.6-2.3) mg/dL AST 189 H (17-59) U/L ALT 251 H (4-49) U/L Creatine Kinase 2499 H* (55-170) U/L Total Protein 5.1 L (6.3-8.2) g/dL Albumin 2.2 L (3.5-5.0) g/dL Microbiology - Last 24 Hours (Table) 06/06/24 15:24 Blood Culture - Preliminary Blood
--- NOTE | 2024-06-11 13:38 | P.PN ---
Subjective Progress Note Date: 06/11/24 Principal diagnosis: Cardiopulmonary arrest This is a 64-year-old male patient was in [place] and the patient was about to get discharged. He has history of polysubstance abuse including cocaine, heroin alcoholism. The patient developed some mental status change and subs equently the became bradycardic and the apparently collapsed and subsequently found to to be in cardiopulmonary arrest. The original rhythm information is not available. Please refer to the emergency notes. Apparently patient was found unresponsive and he stopped breathing and he collapsed. CPR was initiated by EMS. The patient was intubated on the route. Subsequently, CPR was continued in our emergency department. Initial EKG showed some ST segment elevation over the V1 and V2 leads. Based on that, the patient was taken immediately to the [facility] and underwent a cardiac catheterization that this showed essentially normal coronaries. The clinic pressures were also low. The patient was kept intubated and following that he was moved to the intensive care unit. At this point in time, the patient is intubated on mechanical ventilator. He is on propofol which is running at 60 mcg/kg/min is also on a Versed drip at 12 mg an hour. He is on assist-control mode of mechanical ventilation at rate of 18, tidal volume of 400, FiO2 50% with a PEEP of 5. Initial lactic acid level was 11.4 and dropped down to 7.7. Initial blood gases showed a pH of 7.06 with a pCO2 of 50 and pO2 more than 420. Subsequent blood gas showed a pH of 7.39 with a pCO2 of 39 and pO2 of 95 and this was verified to 50%. Chest x-ray showed no consolidation or airspace disease. The morning chest x-ray showed right-sided pneumothorax. Based on that, I inserted a 28 Turkish chest tube into the right hemithorax and a pneumothorax was drained. Chest tube is currently in place and the patient is positive airleak. Hemodynamically, the patient has no pressors. He is slightly hypothermic and his most recent temperature is at 95.5 degrees. The white cell count of 13.5 with a hemoglobin 17.5 and a platelet count of 315. The patient has sustained acute kidney injury with a BUN of 41 with a creatinine of 3.6 and urine output is only a (an hour. Serum bicarb is at 14 with an anion gap of 28. Sodium is at 143. AST is 499, ALT is 171, troponin is at 0.191 and proBNP level is 18,300. TSH is at 9.2. UA showed 28 RBCs and 71 WBCs. CAT scan of the brain has not been done. Neurologically, the patient is not withdrawing to painful stimulation. No seizure activity. Pupils are round 2 mm in size, symmetrical. Reflexes are quite diminished in all 4 EXTR. He is breathing about the mechanical ventilator. 06/07/2024, the patient remains intubated on mechanical ventilator. The patient is sedated with a combination of propofol running at 65 mcg/kg/min and Versed drip at 15 mg an hour. Patient is also on a combination of Vimpat and Keppra. Some twitching of the lip was noted, suspected seizures, suspected anoxic encephalopathy and the patient is having an EEG done today. Neurology is on the case. No active twitching or body jerks is noted on clinical examination today. Meanwhile, the patient is still on the mechanical ventilator. The patient is on a pressure control mode of mechanical ventilation at rate of 12, pressure control of 20, FiO2 50% with a PEEP of 5. Chest x-ray from today shows no acute abnormalities. The right-sided chest tube is in place. There is intermittent air leak and there is no evidence of any pneumothorax. ET tube is in good location. The patient's blood gas from today shows a pH of 7.6 with a pCO2 of 31 and a pO2 of 121. Bicarb drip has been discontinued and the patient is currently on half-normal saline which is running at 100 cc an hour. The patient sustained an acute rhabdomyolysis. Cardiac catheterization was negative for any coronary abnormalities. Echocardiogram was also done that showed a preserved LV function without any significant valvular abnormalities. Ejection fraction was around 65%. CAT scan of the brain was done and it showed no acute abnormalities. Ultrasound of the kidneys showed no hydronephrosis. The blood work from today shows a white cell count of 14.3 with a hemoglobin 15.8 and a platelet count of 232. Sodium is at 140 with a potassium level of 3.0. BUN is 59 with a creatinine of 2.9 and the patient is producing urine output. Urine drug screen was positive for cocaine and benzodiazepine. Afebrile. No other significant events noted overnight. Neurology on the case. Estimated downtime was around 17 and later on 30 minutes during which the patient received CPR. As such, high likelihood for an underlying anoxic encephalopathy. Patient was evaluated today on 06/08/2024, patient remains in the ICU, intubated and mechanically ventilated. He is on pressure control mode of mechanical ventilation, with PI of 20, TI of 0.9, FiO2 50% and I cut it down to 40% rate of 12 and PEEP of 5 ABG showed a pO2 of 116 pCO2 39 pH of 7.50. Looking back at the history, patient had cardiac arrest x 2 CPR for 17 minutes on 06/06. He may have sustained some anoxic brain injury patient is on vital AF at 40 cc/h IV fluid at 100 cc/h which I increased to 150 cc/h remains on Versed at 1 mg/h and propofol at 50 mcg/kg/min. Patient is on Unasyn, his CPK is improving but nonetheless remains over 20,000. Patient is not requiring any pressors he is on Cleviprex at 8 g/h. Show reviewed WBC count is 12.4 hemoglobin 13.4 electrolytes are normal bicarb is 33 BUN is 54 creatinine 3.12 CPK is 20,686. Her enzymes are also elevated with AST of 1151 and ALT of 818 Patient was evaluated today on 06/09/2024, remains intubated clinically ventilated, unresponsive to any stimuli, patient will be taken off sedati on/propofol to address mental status, I strongly suspect that the patient may have sustained severe anoxic brain injury. He is on pressure control mode of mechanical ventilation with rate of 12 pressure control of 20 T1 of 0.90 ABG showed a pO2 of 82 pCO2 32 pH of 7.50 hence no changes were made in vent settings. Continues to have chest tube in place and there is tiny air leak noted. Patient remains on Unasyn he is also on propofol at 50 mg/kg/min Cleviprex at 5 mg/h IV fluid at 150 cc/h vital AF at 43 cc/h. WBC count is 14.3 hemoglobin 12.1. Electrolytes are normal, BUN is 48 creatinine 2.71 steadily improving compared to 3.67 few days ago. CPK is coming down to 12,000 and liver enzymes are improving with AST down to 486 and ALT is 471. Total bilirubin is 1.1 chest x-ray shows no evidence of pneumothorax, chest tube is in the right place, there is possibly a small left lower lobe atelectasis and small pleural effusion Patient elevated today on 06/10/2024, remains in the ICU intubated and mechanically ventilated, off sedation. No neurological responses except the patient does have a weak gag reflex. Obviously the patient possibly sustained significant anoxic brain injury but definitely is not brain . Seen by neurology, and feels the prognosis extremely poor at this point, hence we will try to approach the family regarding either tracheostomy and PEG tube placement or comfort care measures/terminal weaning. Patient is on control mode of mechanical ventilation, PPI is 20 inspiratory T10.9 FiO2 40% PEEP of 5 rate of 12. ABG showed a pO2 of 96 pCO2 36 pH of 7.41 hence no changes were made in vent settings. Patient remains off propofol today, his IV fluids at 0.45 at 150 cc/h. He is off Cleviprex, blood pressure seems to be marginal/low because he received multiple meds for high blood pressure given to him by cardiology. He is on Unasyn, is also on Cardizem. Overall picture does not look very promising. Chest x-ray is suspicious for bibasilar atelectasis and/or possible bibasilar pneumonia/aspiration pneumonia CBC is relatively normal basic metabol ic profile showed elevated sodium of 145 BUN is 49 creatinine 2.42 CPK trending down to 6968 liver enzymes remain a bit elevated renal functioning is improving with creatinine down to 2.42 from 3.67 on 06/06 Patient was elevated today on 06/11/2024, patient remains in the ICU, intubated and mechanically ventilated. He is on pressure control mode of mechanical ventilation, rate is 12, PI 21, TI is 0.9. PEEP is 5. ABG showed a pO2 of 110 pCO2 39 pH of 7.29. Sodium is noted to be high today above 150, hence the patient will be receiving fluid boluses via orogastric tube/free water, and will also recommend D5W running at 150 cc/h. Patient is on norepinephrine at 0.02 mcg/kg/min, he is on vital AC, 43/43. Adequate nutritional support is noted. Remains empirically on antibiotics in the form of Unasyn. Overall the patient is neurologically about the same, not much has changed over the last week since admission. Today I discussed his condition with neurology/Dr. Babak almaraz, I also discussed his condition with his son over the phone. And he was made aware of his overall neurological status, discussed the different options including continued supportive care measures and proceeding to tracheostomy and PEG tube placement or going to comfort care measures. The son clearly expressed wishes that his father would have wanted comfort care measures knowing the poor prognosis, and the quality of life if the patient is to be sent to care home with tracheostomy and PEG tube placement. The son states clearly stated to me that he will come in today and make arrangements for comfort care measures sometime later today. In the meantime the patient is DNR CODE STATUS, for now until the son comes in and decide on possibly comfort care measures. Again his prognosis is extremely poor, and the patient obviously sustained significant anoxic brain injury. Objective - Vital Signs Vital signs: Vital Signs Temp 97.8 F 06/11/24 12:00 Pulse 68 06/11/24 13:15 Resp 12 06/11/24 13:15 BP 102/64 06/11/24 09:00 Pulse Ox 100 06/11/24 13:15 FiO2 40 06/11/24 12:20 Intake & Output 06/10/24 06/11/24 06/11/24 18:59 06:59 18:59 Intake Total 2828.470 2411.378 1393.095 Output Total 1275 2475 1070 Balance 1553.470 -63.622 323.095 Weight 74.7 kg 74.7 kg Intake: IV 2020 1810 1035 0.9% NS KVO 120 110 60 Ampicillin-Sulbactam 1.5 50 50 gm In Sodium Chloride 0.9 % 50 ml @ 100 mls/hr IVPB Q8HR BEV Rx#:[id number] Dextrose 5% in Water 1, 125 000 ml @ 125 mls/hr IV . Q8H BEV Rx#:[id number] Sodium Chloride 0.45% 1, 1200 1650 750 000 ml @ 150 mls/hr IV . Q6H40M BEV Rx#:[id number] Sodium Chloride 0.9% 1, 600 000 ml @ 150 mls/hr IV . Q6H40M BEV Rx#:[id number] Thiamine 250 mg In Sodium 50 50 50 Chloride 0.9% 50 ml @ 100 mls/hr IVPB TID BEV Rx#:[id number] Intake, IV Titration 202.470 38.378 19.095 Amount Clevidipine Butyrate 25 50 mg In Empty Bag 1 bag @ 1 MG/HR 2 mls/hr IV .Q24H BEV Rx#:[id number] Norepinephrine 4 mg In 152.470 38.378 Sodium Chloride 0.9% 250 ml @ 0.03 MCG/KG/MIN 8.55 mls/hr IV .Q24H BEV Rx#: [id number] Norepinephrine 4 mg In 19.095 Sodium Chloride 0.9% 250 ml @ 0.03 MCG/KG/MIN 8.55 mls/hr IV .Q24H BEV Rx#: [id number] Tube Feeding 516 473 279 Other 90 90 60 Output: Chest Tube Drainage 20 Chest Tube Right Lateral 20 Chest Urine 1275 2475 1050 Other: Voiding Method Indwelling Catheter Indwelling Catheter Indwelling Catheter ABP, PAP, CO, CI - Last Documented Arterial Blood Pressure 113/54 - Exam General: Reveals 64-year-old -Irish male, intubated, mechanically ventilated, unresponsive to any stimuli. Continues to have gag reflex Head exam atraumatic, normocephalic. Endotracheal tube and orogastric tube are intact. Neck supple no neck masses no JVD, right IJ triple-lumen catheter in place Lung: Diminished breath sound bilaterally right-sided chest tube in place, continues to have some air leak. Abdominal exam flat soft nontender no megaly no rebound or guarding, positive bowel sounds Examination no clubbing edema or cyanosis, good pulses bilaterally. Examination of the skin revealed no evidence of significant rashes Neuro:Limited. No evidence of any significant neurological responses except weak gag reflex. Pupils remain pinpoint. Motor: Unable to assess - Labs CBC & Chem 7: 06/11/24 04:36 06/11/24 04:36 Labs: Abnormal Lab Results - Last 24 Hours (Table) 06/11/24 06/11/24 06/11/24 Range/Units 04:36 04:36 05:38 RBC 3.22 L (4.30-5.90) m/uL Hgb 10.3 L (13.0-17.5) gm/dL Hct 33.2 L (39.0-53.0) % MCV 103.2 H (80.0-100.0) fL MCHC 30.8 L (31.0-37.0) g/dL Lymphocytes # 0.8 L (1.0-4.8) k/uL ABG pH 7.29 L (7.35-7.45) ABG pO2 110 H (83-108) mmHg ABG HCO3 19 L (21-25) mmol/L ABG O2 Saturation 98.2 H (94-97) % Hemoglobin 8.9 L (13.0-17.5) gm/dL Sodium 152 H (137-145) mmol/L Chloride 126 H (98-107) mmol/L BUN 54 H (9-20) mg/dL Creatinine 2.20 H (0.66-1.25) mg/dL Calcium 7.9 L (8.4-10.2) mg/dL Magnesium 2.4 H (1.6-2.3) mg/dL AST 189 H (17-59) U/L ALT 251 H (4-49) U/L Creatine Kinase 2499 H* (55-170) U/L Total Protein 5.1 L (6.3-8.2) g/dL Albumin 2.2 L (3.5-5.0) g/dL Assessment and Plan Assessment: Impression: Acute cardiopulmonary arrest. Exact cause is not clear. Prolonged downtime, mostly over 17-minute this could have been related to an acute drug overdose as the patient had to stop breathing and subsequently went into cardiopulmonary arrest. ST segment elevations with normal coronaries based on the coronary angiogram, echocardiogram was completed and the patient has a normal LV function. Acute unresponsiveness, postcardiac arrest and the patient had a negative CAT scan of the brain. Acute respiratory failure, nonhypoxic, hypercapnic, currently intubated on mechanical ventilator Right-sided pneumothorax likely related to CPR or right IJ line placement, patient continues to have right-sided chest tube in place. Minimal air leak noted Polysubstance abuse including cocaine, heroin and alcoholism Acute metabolic encephalopathy Acute rhabdomyolysis, CPK is steadily trending down. Acute kidney injury, improving as the patient is getting more fluids and CPK is improving Abnormal LFTs could be related to alcoholism. Steadily improving anoxic brain injury related to prolonged downtime from cardiopulmonary arrest Recommendation: His son was updated on his condition yesterday, and the son will plan comfort care measures sometime later today. Continue ventilatory support Continue patient off sedation Continue IV fluids Continue Unasyn for presumptive aspiration pneumonia GI and DVT prophylaxis Nutritional support/enteral feeding Patient remains critically ill No plans to wean the patient unless we proceed to comfort care measures Critical care time is over 30-minute Time with Patient: Greater than 30
--- NOTE | 2024-06-11 14:17 | P.PN ---
Subjective Progress Note Date: 06/11/24 I am following up with the patient and according to his nurse family is leaning towards comfort care. Pending final decision. Objective - Vital Signs Vital signs: Vital Signs Temp 97.8 F 06/11/24 12:00 Pulse 92 06/11/24 14:00 Resp 15 06/11/24 14:00 BP 102/64 06/11/24 09:00 Pulse Ox 100 06/11/24 13:15 FiO2 40 06/11/24 12:20 Intake & Output 06/10/24 06/11/24 06/11/24 18:59 06:59 18:59 Intake Total 2828.470 2411.378 1810.713 Output Total 1275 2475 1320 Balance 1553.470 -63.622 490.713 Weight 74.7 kg 74.7 kg Intake: IV 2020 1810 1305 0.9% NS KVO 120 110 80 Ampicillin-Sulbactam 1.5 50 50 gm In Sodium Chloride 0.9 % 50 ml @ 100 mls/hr IVPB Q8HR BEV Rx#:[id number] Dextrose 5% in Water 1, 375 000 ml @ 125 mls/hr IV . Q8H BEV Rx#:[id number] Sodium Chloride 0.45% 1, 1200 1650 750 000 ml @ 150 mls/hr IV . Q6H40M BEV Rx#:[id number] Sodium Chloride 0.9% 1, 600 000 ml @ 150 mls/hr IV . Q6H40M BEV Rx#:[id number] Thiamine 250 mg In Sodium 50 50 50 Chloride 0.9% 50 ml @ 100 mls/hr IVPB TID BEV Rx#:[id number] Intake, IV Titration 202.470 38.378 56.713 Amount Clevidipine Butyrate 25 50 mg In Empty Bag 1 bag @ 1 MG/HR 2 mls/hr IV .Q24H BEV Rx#:[id number] Norepinephrine 4 mg In 152.470 38.378 Sodium Chloride 0.9% 250 ml @ 0.03 MCG/KG/MIN 8.55 mls/hr IV .Q24H BEV Rx#: [id number] Norepinephrine 4 mg In 56.713 Sodium Chloride 0.9% 250 ml @ 0.03 MCG/KG/MIN 8.55 mls/hr IV .Q24H BEV Rx#: [id number] Tube Feeding 516 216 389 Other 90 90 60 Output: Chest Tube Drainage 20 Chest Tube Right Lateral 20 Chest Urine 1275 2475 1300 Other: Voiding Method Indwelling Catheter Indwelling Catheter Indwelling Catheter ABP, PAP, CO, CI - Last Documented Arterial Blood Pressure 135/58 - Exam General: Lying in bed and does not appear in acute distress. HENT: Supple neck Lung: Intubated on ventilator. Neuro: Limited. Off IV sedation Patient is comatose. Patient is breathing over the vent. No eye twitching notes at baseline or to opening eyes. With suctioning him he had twitching of his chest. Manually open eyes and the pupils are pinpoint round and primary gaze is midline. Is breathing over the vent. Motor: Unable to assess because of his overall condition. But no withdrawaling to painful stimuli. no jerking of any extremities. Tone is decreased throughout. Reflex: 0-1 throughout. Plantars are mute b/l. Some of the other workup during this hospital visit consisted of: MCV is 101 Creatinine is 3.67, sodium is 143, glucose on presentation is 163 Plasma lactic acid vein is 11.4, calcium 7.5, phosphorus 14.4, magnesium 3.4, AST is 499 and ALT is 171 TSH is 9.20 Serum B12: 735 Serum folate: 15.7 Ammonia: <9 AST and ALT levels are trending up CK is trending down CT head: No significant abnormality seen. There is no acute bleed or mass effect. Routine EEG: Is abnormal. The background slowing suggestive of moderate to severe encephalopathy. There are no focal slowing, epileptiform discharges or seizure on the EEG. Repeat routine EEG: Is abnormal. The background slowing is suggestive of moderate encephalopathy. There is no focal slowing, epileptiform discharges or seizure on the EEG. - Labs CBC & Chem 7: 06/11/24 04:36 06/11/24 04:36 Labs: Abnormal Lab Results - Last 24 Hours (Table) 06/11/24 06/11/24 06/11/24 Range/Units 04:36 04:36 05:38 RBC 3.22 L (4.30-5.90) m/uL Hgb 10.3 L (13.0-17.5) gm/dL Hct 33.2 L (39.0-53.0) % MCV 103.2 H (80.0-100.0) fL MCHC 30.8 L (31.0-37.0) g/dL Lymphocytes # 0.8 L (1.0-4.8) k/uL ABG pH 7.29 L (7.35-7.45) ABG pO2 110 H (83-108) mmHg ABG HCO3 19 L (21-25) mmol/L ABG O2 Saturation 98.2 H (94-97) % Hemoglobin 8.9 L (13.0-17.5) gm/dL Sodium 152 H (137-145) mmol/L Chloride 126 H (98-107) mmol/L BUN 54 H (9-20) mg/dL Creatinine 2.20 H (0.66-1.25) mg/dL Calcium 7.9 L (8.4-10.2) mg/dL Magnesium 2.4 H (1.6-2.3) mg/dL AST 189 H (17-59) U/L ALT 251 H (4-49) U/L Creatine Kinase 2499 H* (55-170) U/L Total Protein 5.1 L (6.3-8.2) g/dL Albumin 2.2 L (3.5-5.0) g/dL Assessment and Plan Assessment: Is a 64-year-old gentleman with history of polysubstance abuse including heroin, cocaine, alcohol use who presented from [place] for witnessed cardiac arrest. Unknown exact story or duration of cardiac arrest. Unsure if the patient had syncopal episode that was convulsive that led to cardiac arrest or vice versa. As a result patient had CPR he was intubated in the field. The patient was found to be bradycardic and was given atropine. EKG shows concerning for anterior STEMI and patient was taken for cardiac Acls Nurse and the coronary arteries are patent. Outside hospital Cardiac arrest (duration for 20 minutes) Likely anoxic brain injury due to above. Also has some component of metabolic derangement that can also give metabolic encephalopathy. CT head is negative for acute or subacute process or bleed. Eye twitching examination likely due to above since patient had cerebral anoxia that can lead to seizures/myoclonic seizure--no seizure or discharges on the routine EEG. Had repeat EEG and was negative for discharges or seizure Elevated lactic acid level Elevated electrolyte levels such as phosphorus, magnesium Abnormal TSH Acute transaminitis--trending down Rhabdomyolysis--trending down Acute Kidney insufficiency--trending down Acute respiratory distress and the patient is intubated on the ventilator History of polysubstance use including heroin, cocaine and alcohol Plan: Keppra 500 mg twice daily and Vimpat 50 mg twice daily for his eyes twitching concerning for seizure/myoclonus seizure which was started on 06/06/2024. Patient is on thiamine 250 mg 3 times daily Nephrology team is on board Will defer the rest of the medical management to primary and other specialist Condition is critical. His overall prognosis is very poor. ICU attending spoke with the patient family yesterday according to the nurse and they are considering comfort care. Pending final decision from the family. Time with Patient: Less than 30
[2024-06-11] MEDS ORDERED: MORPHINE SULFATE 4 MG/ML SYRINGE IV PRN (15:05)
[2024-06-11] MEDS ORDERED: MORPHINE SULFATE 2 MG/ML SYRINGE IV PRN (15:05)
[2024-06-11] MEDS ORDERED: ATROPINE OPHTH SOLN 1% 5ML BTL SUBLINGUAL PRN (15:05)
[2024-06-11 16:02] VITALS: TEMP 97.5
[2024-06-11 17:03] VITALS: RESP 12
[2024-06-11 17:11] LABS: Glucose,Whole Blood 89 mg/dL (70-110)
[2024-06-11 18:21] VITALS: PULSE 96
[2024-06-11] MEDS: MORPHINE SULFATE (100 MG/2 ML) 100 MG in SODIUM CHLORIDE 0.9% 100 ML IV SCH (19:14)
[2024-06-11] MEDS: SCOPOLAMINE 1 MG/72 HR PATCH TRANSDERM SCH (19:53)
--- NOTE | 2024-06-12 06:45 | P.DS ---
Providers Date of admission: 06/06/24 05:48 Expected date of discharge: 06/12/24 Attending physician: Nasima Francis MD Consults: 06/06/24 05:48 Consult Physician Routine Consulting Provider: Rabia Lopez Consult Reason/Comments: icu Do you want consulting provider notified?: Yes Consult Physician Routine Consulting Provider: Maria Elena Crockett Consult Reason/Comments: CPA Do you want consulting provider notified?: Yes 06/06/24 08:17 Consult Physician Urgent Consulting Provider: Beryl De La Garza Consult Reason/Comments: JAYASHREE Do you want consulting provider notified?: Yes 06/06/24 08:47 Consult Physician Routine Consulting Provider: Babak Post Consult Reason/Comments: seizure Do you want consulting provider notified?: Yes Primary care physician: Stated None Hospital Course: Note 64-year-old male with history of polysubstance abuse including heroin, cocaine, alcohol presenting from [place] for witnessed cardiac arrest on 06/06. Unknown downtime. Per report, patient possibly had seizure-like activity after having a cardiac arrest. He had multiple rounds of CPR and was intubated in the field. After getting to the hospital, he was found to be bradycardic for which he was given atropine. EKG concerning for anterior STEMI with ST elevations in aVR and V1, patient taken directly to [facility], coronary arteries are patent. Patient now in the ICU. Initial vitals BP 61/38, mechanically ventilated, RR 16, HR 119, T 96.8F. CBC, Coag panel, CMP significant for WBC 13.5, Hct 54.3, MCV 101.2, PT 13.1, INR 1.2, bicarb 14, BUN 41, Cr 3.67. glu 163, Ca 10.5, AST 499, ALT 171, total protein 8.9. Lactic acid 11.4. Phos 14.4. Mag 3.4. Troponin 0.191. BNP 23014. TSH 9.22. CXR no acute findings, ET tube, central line, NG tube in place. ICU, nephrology, neurology, cardiology on board. Echo EF 65-70% severe LV thickness. CXR showed right PTX, status post chest tube on 06/06. Brain CT negative. EEG mod-severe encephalopathy. Started on Unasyn empirically. CPK 44075 06/07 and Cr 3.67 06/06 improved with IV hydration. Weaned off propofol, had some tremors thought to be related to withdrawal, started on Ativan PRN. Cardiology managing elevated BP. Weaned off Propofol over the past 48H with no significant improvement in mentation. 06/11 Patient was seen and examined. Intubated. Off Clevidipine, Cardizem/Clonidine patch/Cardizem held due to hypotension. Antibiotics include Unasyn 3g IV TID. CBC, CMP significant for RBC 3.22, Hg 10.3, Hct 33.2, MCV 103.2, Na 152, Cl 126, BUN 54, Cr 2.2, Ca 7.9, AST 189, ALT 251, alb 2.2. CPK 2499. ABG pH 7.29, pO2 110, pCO2 39 FiO2 40. CXR shows R chest tube with no PTX, ET tube, NG tube, central venous catheter in place. I had an extensive discussion with multiple family members at bedside on 06/11 regarding the poor prognosis of this patient. All questions were answered to the best of my ability. Family decided to proceed with a terminal wean off the vent. Patient shortly after. T 98F, BP 109/55, HR 66, RR 12, 100% FiO2 40. General: Intubated Derm: warm, dry Head: atraumatic, normocephalic, symmetric Eyes: no lid lag, anicteric sclera Mouth: no lip lesion, mucus membranes moist Cardiovascular: S1 S2 reg. + systolic murmurs, rubs or gallops. No LE edema Lungs: Decreased BS bilaterally, no accessory muscle use Ext: No muscle atrophy Neuro: Intubated Psych: Intubated Right chest tube in place Discharge Diagnosis: Alm-ib-jenfbzqo cardiac arrest: Unknown etiology. Possible related to cocaine use. Cath negative. Concern for PE less likely. Cardiology on board. Acute anterior STEMI Acute metabolic encephalopathy: Concern for anxoic brain injury. CT brain negative. EEG mod-severe encephalopathy. Ammonia negative. Seizure like activity witnessed. Vimpat 50 mg IV BID, Keppra 500 mg IV BID. Neurology on board. Acute respiratory failure Right pneumothorax status post chest tube 06/06 Hypernatremia: NS switched to 1/2 NS running at 150 cc/hr. Acute rhabdomyolysis: IV hydration as above. Trend CPK. Monitor renal function. Sepsis: Sputum Cx H. parainfluenza. UCx negative. BCx negative so far. Unasyn 3g IV TID. Hypertensive emergency now hypotensive: Clevidipine drip discontinued. Hydralaz ine, Clonidine patch, Cardizem on hold. Transaminitis likely shock liver with Hep B + C positive. Nonoliguric JAYASHREE: IV hydration as above. Nephrology on board. History of polysubstance abuse: UDS + benzo + cocaine. Euthyroid sick syndrome: TSH 9.22. Resolved: Cardiogenic versus hypovolemic shock, high AG met acidosis, Hypertensive emergency Patient Condition at Discharge: Critical Plan - Discharge Summary Discharge Rx Participant: No New Discharge Prescriptions: No Action Thiamine [Vitamin B-1] 100 mg PO DAILY Mylanta Regular Strength 30 ml PO Q4H PRN PRN Reason: Gi Upset Multivitamins, Thera [Multivitamin (formulary)] 1 tab PO DAILY Ibuprofen [Motrin Ib] 600 mg PO Q6H PRN PRN Reason: Pain Or Fever > 100.5 Magnesium Hydroxide [Milk of Magnesia] 2,400 mg PO BID PRN PRN Reason: Constipation Hyoscyamine Sulfate [Levsin] 0.125 mg PO QID PRN PRN Reason: WITHDRAWL SYMPTOMS guaiFENesin SYRUP 100MG/5ML [Robitussin] 200 mg PO Q4H PRN PRN Reason: Congestion Loperamide [Imodium] 4 mg PO QID PRN MDD 16MG PRN Reason: Diarrhea Docusate [Colace] 100 mg PO DAILY PRN PRN Reason: Constipation Calcium Phos/D3/Magnesium/Zinc [Vqabogn-Qja-Wqmh-Vitamin D3] 1 tab PO TID PRN PRN Reason: WITHDRAWL SYMPTOMS ondansetron HCL [Ondansetron HCl] 8 mg PO Q6H PRN PRN Reason: Nausea Acetaminophen [Tylenol] 650 mg PO Q4H PRN MDD 2600 mg PRN Reason: Pain Or Fever > 100.5 Chlorpheniramine Maleate [Chlor-Trimeton] 4 mg PO Q4H PRN PRN Reason: ALLERGIES/WITHDRAWL SYMPTOMS cloNIDine HCL [Catapres] 0.1 mg PO Q4H PRN PRN Reason: Anxiety Discharge Medication List Acetaminophen [Tylenol] 650 mg PO Q4H PRN MDD 2600 mg 06/06/24 [History] Calcium Phos/D3/Magnesium/Zinc [Zeuuwgk-Zii-Yqbm-Vitamin D3] 1 tab PO TID PRN 06/06/24 [History] Chlorpheniramine Maleate [Chlor-Trimeton] 4 mg PO Q4H PRN 06/06/24 [History] Docusate [Colace] 100 mg PO DAILY PRN 06/06/24 [History] Hyoscyamine Sulfate [Levsin] 0.125 mg PO QID PRN 06/06/24 [History] Ibuprofen [Motrin Ib] 600 mg PO Q6H PRN 06/06/24 [History] Loperamide [Imodium] 4 mg PO QID PRN MDD 16MG 06/06/24 [History] Magnesium Hydroxide [Milk of Magnesia] 2,400 mg PO BID PRN 06/06/24 [History] Multivitamins, Thera [Multivitamin (formulary)] 1 tab PO DAILY 06/06/24 [History] Mylanta Regular Strength 30 ml PO Q4H PRN 06/06/24 [History] Thiamine [Vitamin B-1] 100 mg PO DAILY 06/06/24 [History] cloNIDine HCL [Catapres] 0.1 mg PO Q4H PRN 06/06/24 [History] guaiFENesin SYRUP 100MG/5ML [Robitussin] 200 mg PO Q4H PRN 06/06/24 [History] ondansetron HCL [Ondansetron HCl] 8 mg PO Q6H PRN 06/06/24 [History] Follow up Appointment(s)/Referral(s): None,Stated [Primary Care Provider] - 1-2 days Discharge Disposition: - Preliminary Cause of Preliminary Cause of : STEMI
--- NOTE | 2024-06-29 13:27 | CDI ---
Documentation Clarification Form Date: 06/29/2024 12:27:03 PM From: Marilou Mccall Phone: Admit Date: 06/06/2024 05:48:00 AM Patient Name: Yifan Monroe Visit Number: [id number] Discharge Date: 06/11/2024 10:51:00 PM ATTENTION: The Clinical Documentation Specialists (CDI) and [facility] Coding Staff appreciate your assistance in clarifying documentation. Please respond to the clarification below the line at the bottom and electronically sign. The CDI & [facility] Coding staff will review the response and follow-up if needed. Please note: Queries are made part of the Legal Health Record. If you have any questions, please contact the author of this message via ITS. Doctor/Provider: Patt Bernardo Acute Rhabdomyolysis is documented per Progress Note 06/07 and following notes. Additional clarification regarding the type of rhabdomyolysis is requested. History/Risk Factors: 64yo M, Jmt-mw-owbfbhttOGL, anteriorSTEMI, JAYASHREE, acutemetabolic enceph, ALLA, AHHRF, Rt PTX, hypernatremia, HTN w emergency, transaminases,shock liver,Hep B/C+, UDS cocaine & benzo+, euthyroid sick syndrome, HAGMA, Sepsis Clinical Indicators: Acutecardiopulmonary arrest. Exact cause is not clear. Prolongeddowntime, mostly over 17-minute this could have been related to an acutedrug overdoseas the patient had to stop breathing and went intocardiopulmonary arrest. Treatment: IV hydration as above. Trend CPK. Monitor renal function. Pt ultimately made Comfort care and Please clarify the type of rhabdomyolysis, if known: [ x ] Traumatic rhabdomyolysis due to fall [ ] Non traumatic rhabdomyolysis due to medication (please specify) [ ] Non traumatic rhabdomyolysis due to infection (please specify) [ ] Other, please specify [ ] Unable to Determine (Template Last Revised: November 2020) MTDD
--- NOTE | 2024-06-29 13:28 | CDI ---
Documentation Clarification Form Date: 06/29/2024 12:42:41 PM From: Marilou Mccall Phone: Admit Date: 06/06/2024 05:48:00 AM Patient Name: Yifan Monroe Visit Number: [id number] Discharge Date: 06/11/2024 10:51:00 PM ATTENTION: The Clinical Documentation Specialists (CDI) and [facility] Coding Staff appreciate your assistance in clarifying documentation. Please respond to the clarification below the line at the bottom and electronically sign. The CDI & [facility] Coding staff will review the response and follow-up if needed. Please note: Queries are made part of the Legal Health Record. If you have any questions, please contact the author of this message via ITS. Doctor/Provider: Patt Bernardo Sepsis is documented per Progress Notes 06/10 & 06/11 in addition to the DC Summary and may lack sufficient clinical evidence/support in the medical record. Additional clarification is requested. History/Risk Factors: 64yo M, Jgv-cf-vroyzxnw PEA, anterior STEMI, JAYASHREE, rhabdo, acute metabolic enceph, ALLA, AHHRF, Rt PTX, hypernatremia, HTN w emergency, transaminases, shock liver, Hep B/C+, UDS cocaine & benzo+, euthyroid sick syndrome, HAGMA, Sepsis Clinical Indicators: WBC: 06/06 13.5 [id number] H 06/07 14.3-17.7 06/08 12.4 [id number] 06/09 14.3 06/10 13.5 PlasmaLactic Acid: 06/06 7.7- 11.4 Blood cultures: Sputum Cx H.parainfluenza. UCx negative. BCx negative so far Vitals signs: 06/06 T 96.8 PR119- 79 RR16 BP61/38 O2 100 (on vent) 06/07 Temp 98.2 Pulse 105 Resp 15 BP 128/70 O2 100 FiO2 50 06/10 Temp 99.8 Pulse 109 Resp 18 BP 130/64 O2 97 FiO2 40 06/11 Temp 97.8 Pulse 68 Resp 12 BP 102/64 O2 100 FiO2 40 Treatment: SIRS: Empirically covered with Unasyn 3g IV TID IV Bolus: Sodium is noted to be high today above 150, hence the patient will be receiving fluidbolusesvia orogastric tube/free water, and will also recommend D5W running at 150 cc/h. Is there an additional diagnosis that is clinically appropriate for this patient? [ ] Sepsis, present on admission [ ] Sepsis, developed during stay, not present on admission [ ] Severe Sepsis with organ failure [ ] Septic Shock [ x ] SIRS, without underlying infectious process [ ] No additional diagnosis/not clinically significant [ ] Other, please specify [ ] Unable to determine SIRS Criteria: 2 or more of the following may indicate SIRS Temperature < 96.8F (36C) or > 101.0F (38.3C) Heart Rate > 90 bpm Respiratory Rate > 20 breaths/min or PaCO2 < 32 mmHg White Blood Cell Count > 12,000 or < 4,000 cells/mm3 or > 10% bands (Template Last Reviewed: September 2022) MTDD
--- NOTE | 2024-07-20 14:20 | CDI ---
Documentation Clarification Form Date: 07/20/2024 From: Pat Barry RN CCDS Phone: [phone] Admit Date: 06/06/2024 05:48:00 AM Patient Name: Yifan Monroe Visit Number: [id number] Discharge Date: 06/11/2024 10:51:00 PM ATTENTION: The Clinical Documentation Specialists (CDI) and [facility] Coding Staff appreciate your assistance in clarifying documentation. Please respond to the clarification below the line at the bottom and electronically sign. The CDI & [facility] Coding staff will review the response and follow-up if needed. Please note: Queries are made part of the Legal Health Record. If you have any questions, please contact the author of this message via ITS. Doctor/Provider: Donte Nguyen MD: Pneumothorax is documented in the Pulmonary consult 06/06. Further specificity regarding the pneumothorax is requested. History/risk factors: 64-year-old male with a history of polysubstance abuse, who presented after witnessed cardiac arrest and CPR Clinical Indicators: 06/06 Pulmonology consult, Plan: "Acute cardiopulmonary arrest. Exact cause is not clear. Patient was resuscitated, intubated in the field and there is return of the spontaneous blood pressure and hemodynamics. Currently on no pressors. Intubated on the mechanical ventilator. Right-sided pneumothorax could be iatrogenic secondary to line insertion as the patient had right IJ triple-lumen catheter inserted in the emergency. Could be also related to CPR. Right-sided chest tube was inserted with reexpansion of the right lung and there is positive air leak" 06/10 Critical Care PN, Impression: Right-sided pneumothorax likely related to CPR or right IJ line placement, patient continues to have right-sided chest tube in place. Minimal air leak noted." 06/06 Right Chest tube insertion 06/06 @ 0624 Chest X Ray, Impression: "No acute findings in the chest." 06/06 @ 0908 Chest X Ray, Impression: "1. new right pneumothorax." 06/07 @0642 Chest X Ray, Impression: "2. Right-sided chest tube with no pneumothorax." Treatment: Consult Pulmonology Chest tube insertion Please further specify the pneumothorax, if known: [ ] Post procedural IJ insertion pneumothorax [x ] Pneumothorax due to CPR [ ] Other, please specify [ ] Unable to determine MTDD
== END 2024-06-11 22:51 | disposition expired ==
LOC: EC 05:32 → 2SICU 05:48
PROVIDERS: ADMIT Internal Medicine; ATTEND Internal Medicine
PROC: 3E043XZ Introduction of Vasopressor into Central Vein, Percutaneous Approach (ICD-10-PCS; 2024-06-06)
PROC: 0BH18EZ Insertion of Endotracheal Airway into Trachea, Via Natural or Artificial Opening Endoscopic (ICD-10-PCS; 2024-06-06)
PROC: 5A1955Z Respiratory Ventilation, Greater than 96 Consecutive Hours (ICD-10-PCS; 2024-06-06)
PROC: 4A023N7 Measurement of Cardiac Sampling and Pressure, Left Heart, Percutaneous Approach (ICD-10-PCS; 2024-06-06)
PROC: B2111ZZ Fluoroscopy of Multiple Coronary Arteries using Low Osmolar Contrast (ICD-10-PCS; 2024-06-06)
PROC: 03HY32Z Insertion of Monitoring Device into Upper Artery, Percutaneous Approach (ICD-10-PCS; 2024-06-06)
PROC: 4A133B1 Monitoring of Arterial Pressure, Peripheral, Percutaneous Approach (ICD-10-PCS; 2024-06-06)
PROC: 4A133J1 Monitoring of Arterial Pulse, Peripheral, Percutaneous Approach (ICD-10-PCS; 2024-06-06)
PROC: 0W9930Z Drainage of Right Pleural Cavity with Drainage Device, Percutaneous Approach (ICD-10-PCS; 2024-06-06)
PROC: 02HV33Z Insertion of Infusion Device into Superior Vena Cava, Percutaneous Approach (ICD-10-PCS; principal; 2024-06-06 06:34)
DX: I21.09 ST elevation (STEMI) myocardial infarction involving other coronary artery of anterior wall (principal); G93.41 Metabolic encephalopathy; J96.01 Acute respiratory failure with hypoxia; J96.02 Acute respiratory failure with hypercapnia; N17.0 Acute kidney failure with tubular necrosis; J69.0 Pneumonitis due to inhalation of food and vomit; K72.00 Acute and subacute hepatic failure without coma; G93.1 Anoxic brain damage, not elsewhere classified; E87.0 Hyperosmolality and hypernatremia; E87.4 Mixed disorder of acid-base balance; R65.10 Systemic inflammatory response syndrome (SIRS) of non-infectious origin without acute organ dysfunction; B19.10 Unspecified viral hepatitis B without hepatic coma; I16.1 Hypertensive emergency; J93.83 Other pneumothorax; F11.10 Opioid abuse, uncomplicated; R56.9 Unspecified convulsions; F10.20 Alcohol dependence, uncomplicated; F14.10 Cocaine abuse, uncomplicated; T79.6XXA Traumatic ischemia of muscle, initial encounter; Z51.5 Encounter for palliative care; E83.39 Other disorders of phosphorus metabolism; I11.9 Hypertensive heart disease without heart failure; Z86.74 Personal history of sudden cardiac arrest; B19.20 Unspecified viral hepatitis C without hepatic coma; E07.81 Sick-euthyroid syndrome; E87.6 Hypokalemia; F19.90 Other psychoactive substance use, unspecified, uncomplicated; R00.1 Bradycardia, unspecified; D72.828 Other elevated white blood cell count; R31.9 Hematuria, unspecified; R80.9 Proteinuria, unspecified; Z79.899 Other long term (current) drug therapy
CPT/HCPCS: 36415; 36600; 70450; 71045; 76770; 80048; 80053; 80306; 81001; 82140; 82330; 82550; 82607; 82746; 82805; 83036; 83605; 83735; 83880; 84100; 84132; 84165; 84295; 84443; 84484; 85025; 85610; 85730; 86038; 86160; 86225; 86255; 86334; 86335; 86704; 86705; 86706; 86707; 86803; 87040; 87070; 87086; 87205; 87340; 87350; 92950; 93005; 93306; 93458; 94002; 94003; 94640; 95822; 96361; 96365; 96374; 99291